=== PATIENT | female | born 1950 | race Caucasian/White ===

== ENCOUNTER 2019-11-15 12:20 | Outpatient (CLI) | payer MEDICARE, OTHER, SELFPAY ==
--- NOTE | 2019-11-15 12:37 | XRR_ITS ---
PROCEDURE INFORMATION: Exam: XR Right Wrist Exam date and time: 11/15/2019 12:37 PM Age: 69 years old Clinical indication: Pain and injury or trauma; Fall; Blunt trauma (contusions or hematomas); Wrist; Right; Injury date: August 2019; Prior surgery; Surgery type: Carpal tunnel; Additional info: Wrist pain right TECHNIQUE: Imaging protocol: XR Right wrist. Views: 3 or more views. COMPARISON: No relevant prior studies available. FINDINGS: Bones/joints: Normal. Soft tissues: Normal. XR/XR wrist RT min 3V* [id number] IMPRESSION: No acute findings.
== END 2019-11-15 12:21 | disposition home or self-care (01) ==
LOC: RAD 12:26
PROVIDERS: PCP Family Medicine; Visit Provider Family Medicine
DX: M25.531 Pain in right wrist (principal)
CPT/HCPCS: 73110

== ENCOUNTER → 2019-12-26 08:45 | Outpatient (BNVA) | payer MEDICARE, OTHER, SELFPAY | PROVIDERS: PCP Family Medicine; Referring Provider Family Medicine; Visit Provider Specialist | DX: S69.91XA Unspecified injury of right wrist, hand and finger(s), initial encounter (principal) | CPT/HCPCS: 73110 ==

== ENCOUNTER 2019-12-26 13:46 | Outpatient (CLI) | payer MEDICARE, OTHER, SELFPAY | END 2019-12-26 13:47 | disposition home or self-care (01) | LOC: SPT 13:47 | PROVIDERS: PCP Family Medicine; Visit Provider Specialist | DX: Z46.89 Encounter for fitting and adjustment of other specified devices (principal); S52.511D Displaced fracture of right radial styloid process, subsequent encounter for closed fracture with routine healing; S62.014D Nondisplaced fracture of distal pole of navicular [scaphoid] bone of right wrist, subsequent encounter for fracture with routine healing; X58.XXXD Exposure to other specified factors, subsequent encounter | CPT/HCPCS: 97760; L3982 ==

== ENCOUNTER → 2020-01-25 11:28 | Outpatient (BNVA) | payer MEDICARE, OTHER, SELFPAY | PROVIDERS: PCP Family Medicine; Visit Provider Specialist | DX: S62.024A Nondisplaced fracture of middle third of navicular [scaphoid] bone of right wrist, initial encounter for closed fracture (principal); S52.514A Nondisplaced fracture of right radial styloid process, initial encounter for closed fracture | CPT/HCPCS: 73110 ==

== ENCOUNTER 2020-01-31 08:16 | Outpatient (CLI) | payer MEDICARE, OTHER, SELFPAY ==
--- NOTE | 2020-01-31 08:40 | MR_ITS ---
WS: [id number] INDICATION: Nondisplaced fracture scaphoid TECHNIQUE: MR of the right wrist without gadolinium enhancement. Coronal T1, coronal PD, coronal STIR , coronal 3-D FSPGR Axial PD, axial T2, sagittal T1 FINDINGS: Prior radiographs reviewed. Normal radiocarpal joint. Normal bone marrow signal in the dist al radius and ulna. Normal bone marrow signal in the scaphoid and lunate. No evidence of scaphoid fra cture. No evidence of healing scaphoid fracture. Lateral cortex appears normal. Normal scapholunate i nterval. Mild degenerative arthritis of the carpal bones. This is worse at the STT. Proximal metacarpals are normal in appearance. Palpable marker overlying the area of pain along the r adial aspect of the wrist. Deep to the marker there is thickening and T2 signal abnormality involving the extensor pollicis brevis and abductor pollicis longus tendons. Recommend correlation with area o f pain. Extensor compartment tendons are normal in appearance. Normal carpal tunnel. Normal extensor retinaculum.TFCC is normal in appearance. MR/MR wrist RT wo con* [id number] IMPRESSION: 1. Scaphoid is normal in appearance. No scaphoid fractures or avascular necros is. Normal scapholunate interval. 2. Deep to the marker there is T2 signal abnormality with tendinopathy involvi ng the underlying extensor pollicis brevis and abductor pollicis longus tendons with associated thickening consistent with tendinopathy. Recommend correlation with area of pain. 3. No other significant findings.
== END 2020-01-31 08:17 | disposition home or self-care (01) ==
PROVIDERS: PCP Family Medicine; Visit Provider Specialist
DX: S62.024A Nondisplaced fracture of middle third of navicular [scaphoid] bone of right wrist, initial encounter for closed fracture (principal); X58.XXXA Exposure to other specified factors, initial encounter
CPT/HCPCS: 73221

== ENCOUNTER 2020-01-31 10:08 | Outpatient (CLI) | payer MEDICARE, OTHER, SELFPAY ==
--- NOTE | 2020-01-31 10:13 | MM_ITS ---
WS: [id number] Bilateral screening digital mammogram, 01/31/2020 Clinical Data: SCREENING Comparison: 11/19/2018, 10/30/2016, 09/27/2015, 07/09/2011, 05/06/2005. Findings: The breast parenchymal pattern shows fibroglandular tissue. No spiculated masses or clustered calcifi cations are seen. There are no secondary signs of carcinoma. There is a mole marker on the right [address] [place]. MM/[place] [id number] Impression: 1. Negative bilateral mammogram unchanged. 2. Recommend annual screening mammograms. BIRADS: 1-Negative FOLLOW UP: 1 Year Follow-up The CAD unloading checker was used.
== END 2020-01-31 10:09 | disposition home or self-care (01) ==
LOC: RADSHAW 10:11
PROVIDERS: PCP Family Medicine; Visit Provider Family Medicine
DX: Z12.31 Encounter for screening mammogram for malignant neoplasm of breast (principal)
CPT/HCPCS: 77067

== ENCOUNTER → 2020-02-02 14:22 | Outpatient (BNVA) | payer MEDICARE, OTHER, SELFPAY | PROVIDERS: PCP Family Medicine; Visit Provider Specialist | DX: Z01.812 Encounter for preprocedural laboratory examination (principal); Z20.828 Contact with and (suspected) exposure to other viral communicable diseases | CPT/HCPCS: 87635 ==

== ENCOUNTER 2020-02-07 05:55 | Day surgery (SDC) | payer MEDICARE, OTHER, SELFPAY ==
[2020-02-06 13:19] VITALS: BMI 27.0
[2020-02-07 06:13] VITALS: BP 131/66; PULSE 58; RESP 16; TEMP 36.3; O2SAT 98
[2020-02-07] MEDS: sodium chloride 0.9% 1,000 ML 30 ML IV (06:31)
[2020-02-07] MEDS: vancomycin 1,000 MG in sodium chloride 0.9% 250 ML 250 MG IV (06:31)
--- NOTE | 2020-02-07 06:35 | P.ANESASSM_ITS ---
Pre-Anesthetic Assessment Pre-Anesthetic Assessment: Height/Weight: Height 1.55 m Weight 64.864 kg Temp Pulse Resp BP Pulse Ox 97.3 F L 58 L 16 131/66 98 02/07/20 06:13 02/07/20 06:13 02/07/20 06:13 02/07/20 06:13 02/07/20 06:13 Preop Diagnosis: Good right de Quervain's tenosynovitis Proposed Procedure: Operation Date: 02/07/20 08:10 Proposed Procedures p Dequervain Release 66091 M65.4(Right) - Josseline Arellano MD Last intake: Intake Last Liquid Date 02/06/20 Last Liquid Time 21:00 Last Solid Date 02/06/20 Last Solid Time 20:00 Social: Social History: No alcohol and No tobacco Exam: Pre-Anes Outpt Exam: alert, oriented x 3, clear to auscultation bilaterally and regular rate & rhythm Airway: Submandibular: Other (small) Cervical ROM: WNL MP: 3 Dentition: False (upper and lower) History/ROS: No significant history except as noted Pulmonary: Pulmonary: MUÑOZ Comments: recent URI, currently on AB. feeling better CV/HEM: CV/HEM: HTN : : None reported Hepatic: Hepatic: None reported GI: GI: GERD (controlled) Metabolic: Metabolic: Thyroid Musc/skel: Musc/skel: OA/DJD Neuropsych: Neuropsych: None reported Anesthetic Plan: ASA status: 2 Anesthesia: Anesthesia Evaluation, General and MAC Risk of > 500 ml blood loss (7ml/kg in children): No Meds/Allergies Current Medications: Current Medications Generic Name Dose Route Start Last Admin Trade Name Freq PRN Reason Stop Dose Admin Vancomycin HCl 1,0 00 mg/ 250 mls @ 250 mls /hr 02/07/20 06:06 02/07/20 06:31 Sodium Chloride IV 02/07/20 07:05 250 mls/hr [employer] ONE Administration Protocol Sodium Chloride 1,000 mls @ 30 ml s/hr 02/07/20 06:15 02/07/20 06:31 Sodium Chloride 0.9% IV 02/08/20 06:14 30 mls/hr .Q24H JOE Administration PFSH Anesthesia PFSH: Medical History Hypertension Surgical History H/O esophageal hernia repair Social History Smoking and tobacco status: never smoked Alcohol intake: never Data Anesthesia Cardiac Studies: No Data to Display
--- NOTE | 2020-02-07 07:05 | P.HPUD_ITS ---
Surgery/Procedure H&P Update DATE OF PROCEDURE: February 07, 2020 DATE H&P PERFORMED: 02/01/20 H&P UPDATE INFORMATION: I have reviewed H&P completed within last 30 days, I have examined patient prior to procedure, No changes to prior documentation and H&P is in [facility] EMR on date indicated PREOP DIAGNOSIS: Right de Quervain's tenosynovitis PLANNED PROCEDURE: Operation Date: 02/07/20 08:10 Proposed Procedures p Victor Manuel Release [id number] M65.4(Right) - Josseline Arellano MD Related Problem List Diagnoses (1) De Quervain's tenosynovitis, right:
[2020-02-07 09:05] VITALS: BP 126/56; PULSE 67; RESP 18; TEMP 36.6; O2SAT 98
[2020-02-07 09:15] VITALS: BP 117/80; PULSE 60; RESP 18; O2SAT 100
--- NOTE | 2020-02-07 09:40 | P.OP_ITS ---
Operative Report Date of procedure: February 07, 2020 Pre-op Diagnosis: Right de Quervain's tenosynovitis Post-op diagnosis: same Post-op Findings: 1 extensor pollicis brevis and 2 abductor pollicis longus tendon slips Procedure Done: Right de Quervain's tenosynovitis release Specimens removed/disposition: None Pathology: none sent Surgeon: Josseline Arellano Chainstitch Zipper Setter: None Anesthesia: MAC (with Harini block, ASA 2) Estimated blood loss (mL): 0 Tourniquet time (min): 37 Tourniquet time: At 250 mmHg IV fluids (mL): 700 Urine output (mL): 0 Urine output: No Coon Complications: None Findings: Compression across the first dorsal compartment Condition: stable Disposition: same day Brief History: This 69-year-old woman presented with complaints of right wrist pain. Her pain was primarily centered over the radial styloid. This has been present for an extended period of time. She was unresponsive to splinting and conservative measures. MRI demonstrated findings consistent with de Quervain's tenosynovitis. After discussion, the patient wished to proceed. Procedure: The patient was brought to the operating theater. Anesthesia provided [general anesthesia per Harini block with MAC. The patient's right upper extremity was prepped and draped in usual fashion utilizing DuraPrep. It was draped free. [place] block was administered per anesthesia. Total tourniquet time was 37 minutes at 250 mmHg. The radial styloid was palpated and an incision was made vertically from the distal to the tip of the radial styloid proximally along the first dorsal compartment. Dissection continued through the skin and dermis but following that soft tissue blunt dissection was accomplished to prevent injury to the superficial radial nerve branches in the area. We were able to retract these branches and the first dorsal compartment was visualized. The fibrous tissue over the first dorsal compartment was noted to be quite thickened and erythematous. This was released longitudinally using a combination of scalpel and scissors. We then confirmed that each of the tendons at been released. There were 2 abductor pollicis longus tendons and one extensor pollicis brevis tendon. All of these were released at least a centimeter distal to the radial styloid and proximally as well. There was no further compression across the tendons. The tendons were pulled up out of the tunnel for evaluation. Following this, the wound was irrigated. Attention was then directed to closure. Closure was accomplished with 4-0 Monocryl interrupted in the subcutaneous tissues and subsequently a subcuticular suture was placed in a running fashion. We did inject the wound with half percent Marcaine plain for local anesthetic. This was followed by XLIF and an OpSite. We then placed a compression dressing using an OpSite and fluffed fluffs followed by soft roll, and an Roger wrap. Patient was returned to outpatient surgery in a satisfactory condition and will be discharged home to follow-up with me in the office. There were no specimens and no complications. Associated Problem List Diagnoses (1) De Quervain's tenosynovitis, right:
== END 2020-02-07 09:53 | disposition home or self-care (01) ==
PROVIDERS: PCP Family Medicine; Visit Provider Specialist
PROC: (CPT 25000; principal; 2020-02-07 08:10)
DX: M65.4 Radial styloid tenosynovitis [de Quervain] (principal); I10 Essential (primary) hypertension; K21.9 Gastro-esophageal reflux disease without esophagitis; M19.90 Unspecified osteoarthritis, unspecified site
CPT/HCPCS: 25000; 12345; J3370; J3490; J7030; J7050

== ENCOUNTER → 2020-02-20 09:24 | Outpatient (BNVA) | payer MEDICARE, OTHER, SELFPAY | PROVIDERS: PCP Family Medicine; Visit Provider Specialist | DX: M65.4 Radial styloid tenosynovitis [de Quervain] (principal) | CPT/HCPCS: 73110 ==

== ENCOUNTER → 2020-05-07 10:17 | Outpatient (BNVA) | payer MEDICARE, OTHER, SELFPAY | PROVIDERS: PCP Family Medicine; Visit Provider Thoracic Surgery (Cardiothoracic Vascular Surgery) | DX: Z01.812 Encounter for preprocedural laboratory examination (principal); Z20.828 Contact with and (suspected) exposure to other viral communicable diseases | CPT/HCPCS: 87635 ==

== ENCOUNTER 2020-10-16 12:09 | Inpatient (IN) | payer MEDICARE, OTHER, SELFPAY ==
[2020-10-16] VITALS (9 sets, daily range): BP systolic 116–160; BP diastolic 66–111; PULSE 69–149; RESP 14–24; TEMP 36.6–36.7; O2SAT 95–98; BMI 28.1; BMI 27.8
--- NOTE | 2020-10-16 12:26 | XR_ITS ---
WS: [id number] PORTABLE CHEST HISTORY: afib w RVR COMPARISON: 03/16/2017 Mild blunting of the RIGHT costophrenic angle is similar to prior studies. Lungs are clear and well a erated otherwise. No mass or nodule or edema. No pleural effusion or pneumothorax. Cardiac size: Normal. Mediastinum/Aorta: No mediastinal widening. No osseous abnormality seen. XR/XR chest 1V portable [id number] IMPRESSION: Stable chest. No pulmonary edema or pneumonia.
--- NOTE | 2020-10-16 12:26 | ECG_ITS ---
[facility] Test Date: 2020-10-16 Pat Name: Ave López Department: Room: Gender: Female Activity Director: : 1950 Requested By: Dennis Williamson Order Number: [id number] Reading MD: JAMA DILLON Measurements Intervals [place] Rate: 165 P: OR: QRS: 3 QRSD: 77 T: 269 QT: 243 QTc: 403 Interpretive Statements ATRIAL FIBRILLATION WITH RAPID VENTRICULAR RESPONSE POSSIBLE RIGHT VENTRICULAR CONDUCTION DELAY [RSR (QR) IN V1/V2] ST DEVIATION AND MODERATE T-WAVE ABNORMALITY, CONSIDER ANTEROLATERAL ISCHEMIA [-0.1+ mV T-WAVE IN V3-V6] ST DEVIATION AND MODERATE T-WAVE ABNORMALITY, CONSIDER INFERIOR ISCHEMIA [-0.1+ mV T-WAVE IN II/aVF] CRITICAL TEST RESULT Compared to ECG 03/16/2017 12:35:45 T-wave abnormality now present Possible ischemia now present Sinus rhythm no longer present Sinus arrhythmia no longer present Electronically Signed On 10-16-2020 21:02:07 CDT by JAMA DILLON [email or web address]/store/NU/[id number] diaz
--- NOTE | 2020-10-16 12:33 | ED_ITS ---
HPI - Chest Pain General: Chief Complaint: Chest Pain Stated Complaint: chest pain, lightheaded Time Seen by Provider: 10/16/20 12:26 History of Present Illness: HPI narrative: 70-year-old female presents emergency room with A. fib with RVR. She has had worsening chest discomfort and palpitations for the last several days radiating into her back with shortness of breath. Initial EKG showed A. fib with RVR. Patient initially was given Cardizem and had a good result. She has had dizziness and discomfort is worse with exertion. She denies any diaphoresis nausea or vomiting associated with this. She also has a history of hypothyroidism. MD complaint: chest pain and chest heaviness Pertinent past history: other (afiib) Onset (ago): hour(s) Timing of current episode: constant Prior episodes: Yes Onset: during rest Pain location: left chest Pain radiation: none Severity: mild Relieving factors: nothing Exacerbating factors: nothing Associated symptoms: Reports dyspnea, nausea, palpitations and vomiting; Deny abdominal pain, diaphoresis, fever(s), leg edema, sense of impending doom or syncope Treatment prior to arrival: none Review of Systems Const: Denies: fever(s) or diaphoresis ENMT: Denies: throat pain, ear or mastoid pain, nasal discharge or nasal congestion Card: Reports: palpitations; Denies: syncope Resp: Reports: dyspnea GI: Reports: nausea and vomiting; Denies: abdominal pain : Denies: flank pain, difficulty voiding, dysuria, urinary frequency or urinary urgency Skin/Breast: Denies: rash or pruritus [facility] ED PFSH: Medical History (Updated 10/24/20 @ 07:51 by Dennis Owen DO) Atrial fibrillation Atrial fibrillation with RVR Chest pain Chronic hypokalemia Hypertension Obstructive sleep apnea Recurrent chest pain SVT (supraventricular tachycardia) Surgical History (Updated 10/17/20 @ 18:53 by Grace Jackson MD) H/O esophageal hernia repair H/O: hysterectomy Social History Smoking and tobacco status: never smoked Alcohol intake: never Physical Exam Const: COMMON NORMALS: no acute distress GENERAL APPEARANCE: cooperative and comfortable ORIENTATION/CONSCIOUSNESS: Yes awake, Yes oriented to person, Yes oriented to place and Yes oriented to time HENMT: COMMON NORMALS: normocephalic, atraumatic and hearing grossly normal bilaterally HEAD & SCALP: normocephalic and atraumatic Resp: COMMON NORMALS: normal respiratory effort, No retractions, No use of accessory muscles and clear to auscultation bilaterally AUSCULTATION: clear to auscultation bilaterally Cardio: RATE: tachycardic RHYTHM: abnormal rhythm irregularly irregular GI: COMMON NORMALS: Soft to palpation and No hepatosplenomegaly present AUSCULTATION: Yes normoactive bowel sounds PALPATION: Yes Soft to palpation, No Tenderness to palpation present (GI), No Guarding due to palpation present (GI) and Yes No hepatosplenomegaly present Extremity: COMMON NORMALS: normal to inspection, capillary refill normal, no clubbing, cyanosis or edema, no calf tenderness and no pedal edema Neuro: SENSORIUM/ORIENTATION: Yes oriented to person, Yes oriented to place and Yes oriented to time Skin: COMMON NORMALS: no rashes or lesions noted GENERAL SKIN EXAM: no rashes or lesions noted Course Vital Signs: Vital signs: Vital Signs Temperature 97.6 F 10/22/20 14:16 Pulse Rate 62 10/22/20 14:16 Respiratory Rate 18 10/22/20 14:16 Blood Pressure 109/67 10/22/20 14:16 Pulse Oximetry 98 10/22/20 14:16 MDM - Chest Pain MDM Narrative: Medical decision making narrative: Improved with initiation of Cardizem and rate was well controlled we attempted to turn the Cardizem off since she is and has a known history of atrial fibrillation and hoped that if we had gotten her back under control she would be able to be controlled with her usual medications. We were unsuccessful in this and had to restart the Cardizem drip discussed with the hospitalist reviewed EKGs labs and imaging on the chart. We will go ahead and admit her for rate control and further evaluation. Lab Data: Labs: Lab Results 10/16/20 10/16/20 10/16/20 Range/Units 12:36 12:36 12:36 WBC 11.6 H (4.0-10.0) 10^3/ uL RBC 5.81 H (4.1-5.3) 10^6/u L Hgb 16.9 H (11.5-15.3) g/dL Hct 50.4 H (37.0-47.0) % MCV 86.7 (81-99) fl MCH 29.1 (28.0-34.0) pg MCHC 33.5 (30.0-36.0) g/dL RDW 13.3 (12.1-15.1) % Plt Count 330 (130-400) 10^3/c mm MPV 10.1 (7.4-10.4) fL Neut % (Auto) 77.6 % Lymph % (Auto) 16.8 % [place] % (Auto) 4.6 % Eos % (Auto) 0.2 % Baso % (Auto) 0.5 % Neut # (Auto) 9.00 H (1.8-7.7) 10^3/u L Lymph # (Auto) 1.9 (0.8-4.8) 10^3/u L [place] # (Auto) 0.5 (0.2-0.9) 10^3/u L Eos # (Auto) 0.0 (0.0-0.8) 10^3/u L Baso # (Auto) 0.1 (0.0-0.1) 10^3/u L Nucleated RBC % (a uto) 0 % Nucleated RBCs # 0.0 /100WBC Sodium Cancelled Potassium Cancelled Chloride Cancelled Carbon Dioxide Cancelled Anion Gap Cancelled BUN Cancelled Creatinine Cancelled GFR Calculation Cancelled Glucose Cancelled Calculated Osmolal ity Cancelled Calcium Cancelled Total Bilirubin Cancelled AST Cancelled ALT Cancelled Alkaline Phosphata se Cancelled Troponin T Baselin e Cancelled Total Protein Cancelled Albumin Cancelled Globulin Cancelled 10/16/20 10/16/20 Range/Units 13:20 13:20 WBC (4.0-10.0) 10^3/ uL RBC (4.1-5.3) 10^6/u L Hgb (11.5-15.3) g/dL Hct (37.0-47.0) % MCV (81-99) fl MCH (28.0-34.0) pg MCHC (30.0-36.0) g/dL RDW (12.1-15.1) % Plt Count (130-400) 10^3/c mm MPV (7.4-10.4) fL Neut % (Auto) % Lymph % (Auto) % [place] % (Auto) % Eos % (Auto) % Baso % (Auto) % Neut # (Auto) (1.8-7.7) 10^3/u L Lymph # (Auto) (0.8-4.8) 10^3/u L [place] # (Auto) (0.2-0.9) 10^3/u L Eos # (Auto) (0.0-0.8) 10^3/u L Baso # (Auto) (0.0-0.1) 10^3/u L Nucleated RBC % (a uto) % Nucleated RBCs # /100WBC Sodium 144 Potassium 2.6 L* Chloride 109 H Carbon Dioxide 19 L Anion Gap 18.6 BUN 24 H Creatinine 0.8 GFR Calculation 71.1 L Glucose 116 H Calculated Osmolal ity 303 H Calcium 9.0 Total Bilirubin 1.1 AST 12 ALT 8 Alkaline Phosphata se 95 Troponin T Baselin e 43 H Total Protein 6.5 L Albumin 4.0 Globulin 2.5 Discharge Plan Discharge Patient Disposition: Admitted As Inpatient Admit Provider: Davis Street Clinical Impression: Atrial fibrillation, Atypical chest pain Condition: Stable Coding Level of Care Code ED Director Corporate Security for Chg Fwd Exam Detailed
[2020-10-16 12:40] LABS: Basophils # 0.1 10^3/uL (0.0-0.1); Basophils % 0.5 %; Eosinophils % 0.2 %; Hematocrit 50.4 % (37.0-47.0); Hemoglobin 16.9 g/dL (11.5-15.3); Lymphocytes # 1.9 10^3/uL (0.8-4.8); Lymphocytes % 16.8 %; Mean Corpuscular HGB Conc 33.5 g/dL (30.0-36.0); Mean Corpuscular Hemoglobin 29.1 pg (28.0-34.0); Mean Corpuscular Volume 86.7 fl (81-99); Mean Platelet Volume 10.1 fL (7.4-10.4); Monocytes # 0.5 10^3/uL (0.2-0.9); Monocytes % 4.6 %; Neutrophils % 77.6 %; Nucleated Red Blood Cells % 0 %; Platelet Count 330 10^3/cmm (130-400); Red Blood Count 5.81 10^6/uL (4.1-5.3); Red Cell Distribution Width 13.3 % (12.1-15.1); White Blood Count 11.6 10^3/uL (4.0-10.0)
[2020-10-16 13:52] LABS: Alanine Aminotransferase 8 U/L (0-33); Alkaline Phosphatase 95 IU/L (35-105); Anion Gap 18.6 (5-19); Aspartate Amino Transferase 12 U/L (0-32); Blood Urea Nitrogen 24 mg/dL (8-23); Carbon Dioxide 19 mmol/L (22-29); Chloride 109 mmol/L (98-107); Globulin 2.5 g/dL (1.3-4.6); Glomerular Filtration Rate 71.1 mL/min (90-130); Glucose 116 mg/dL (65-115); Osmolality Calculated 303 mOsm/kg (285-295); Sodium 144 mmol/L (136-145); Total Bilirubin 1.1 mg/dL (0.15-1.2); Total Protein 6.5 g/dL (6.6-8.7)
[2020-10-16 13:54] LABS: Troponin(5th) Baseline 43 ng/L (0-10)
[2020-10-16 14:01] LABS: Potassium 2.6 mmol/L (3.5-5.1)
[2020-10-16] MEDS: potassium chloride oral liq 20 mEq/15 mL UDC 60 MEQ PO (14:09)
--- NOTE | 2020-10-16 14:26 | ECG_ITS ---
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1950 Requested By: Dennis Williamson Order Number: [id number] Reading MD: JAMA DILLON Measurements Intervals [place] Rate: 77 P: [place]: QRS: 8 QRSD: 94 T: -86 QT: 370 QTc: 420 Interpretive Statements ATRIAL FIBRILLATION INCOMPLETE RIGHT BUNDLE BRANCH BLOCK [90+ ms QRS DURATION, TERMINAL R IN V1/V2, 40+ ms S IN I/aVL/V4/V5/V6] SEPTAL MYOCARDIAL INFARCTION , PROBABLY OLD [40+ ms Q WAVE IN V1/V2] MODERATE T-WAVE ABNORMALITY, CONSIDER ANTEROLATERAL ISCHEMIA [-0.1+ mV T-WAVE IN V3-V6] MODERATE T-WAVE ABNORMALITY, CONSIDER INFERIOR ISCHEMIA [-0.1+ mV T-WAVE IN II/aVF] Compared to ECG 10/16/2020 12:26:21 Incomplete right bundle-branch block now present Myocardial infarct finding now present T-wave abnormality still present Possible ischemia still present Electronically Signed On 10-16-2020 21:12:41 CDT by JAMA DILLON [email or web address].[id number]
[2020-10-16] MEDS: metoprolol tartrate 1 mg/1 mL SDV 5 mL 5 MG IVP (15:51)
[2020-10-16 17:29] LABS: Troponin 5 2HR 45.44 ng/L (0-10); Troponin 5 2HR Delta 2.44 ABS# (0-10)
[2020-10-16 17:35] LABS: Potassium 3.7 mmol/L (3.5-5.1)
--- NOTE | 2020-10-16 17:38 | PC.NURSE ---
Admit Note Patient admitted to [facility] room 101 from ER via [place]. Covering service notified. Patient presents with AFIB on cardizem Gtt. Orders reviewed & will continue to monitor. Patient and/or education courses sales representative oriented to environment, equipment, and informed of the following as found in the admission booklet: patient rights & responsibilities, visitor policy, hand and respiratory hygiene practice. Other education includes: Telemetry call light response time. Patient and/or education courses sales representative verbalized understanding.
--- NOTE | 2020-10-16 18:03 | PM.HP ---
Providers/Chief Complaint Admitting Physician: Davis Street MD Primary Care Provider: Dagoberto Wright MD Chief Complaint: chest pain, lightheaded History of Present Illness Ave López is a 70 year old female with past medical history of hypothyroidism, recently diagnosed A. fib , hypertension, chronic hypokalemia, came in with chief complaint of worsening palpitation and chest pain started since Thursday.During these episodes of palpitation she feels central chest pain stabbing in nature radiating to the back, is accompanied with shortness of breath and nausea, and dizziness each episode last for couple of minutes, she has experienced multiple episodes since Thursday. Upon arrival in the ER she was worked up for above-mentioned complaint: Imaging studies: X-ray chest:Normal EKG: A. fib with RVR Pertinent labs: WBC:11.6 T , H&H:16.9/50.4, platelet count:330 , serum sodium:144, serum potassium:2.6, BUN serum creatinine: 24/0.8. Troponin T: Baseline 43, 2-hour: 45, 2-hour delta:2.44 Review of Systems Const: Denies: fever(s), chills, body aches, change in appetite or diaphoresis Card: Denies: edema or swelling of feet/ankles Resp: Denies: productive cough, wheezing or pain on inspiration GI: Denies: abdominal pain, vomiting, diarrhea or constipation : Denies: flank pain Musc: Denies: back pain, extremity pain or extremity swelling Neuro: Denies: headache(s), difficulty walking or confusion Medications/Allergies Home Medications Medication Instructions Recorded Confirmed Last Taken Type THUMB SPICA FAST FORM #1 ea NS 12/26/19 10/16/20 Unknown Rx brimonidine 0.33 % topical gel 1 applic TOPICAL DAILY 12/26/19 10/16/20 10/15/20 History levothyroxine 25 mcg tablet 25 mcg PO DAILY 12/26/19 10/16/20 10/15/20 History timolol 0.5 % eye drops 1 drp OPHTHALMIC (EYE) DAILY 12/26/19 10/16/20 10/15/20 History ferrous sulfate 65 mg PO DAILY 02/06/20 10/16/20 02/06/20 History latanoprost 1 drp OPHTHALMIC (EYE) DAILY 02/06/20 10/16/2021 History apixaban 5 mg tablet 5 mg PO BID 10/11/20 10/16/20 10/15/20 History metoprolol tartrate 25 mg tablet 25 mg PO BID 10/11/20 10/16/20 10/15/20 History potassium chloride 10 mEq 10 meq PO DAILY 10/11/20 10/16/20 Unknown History capsule,extended release sucralfate 1 gram tablet 1 g PO BID 10/11/20 10/16/20 10/15/20 History pantoprazole 40 mg PO BID 10/16/20 10/16/20 Unknown History Allergies Allergy/AdvReac Type Severity Reaction Status Date / Time Penicillins Allergy swelling Verified 10/11/20 14:33 sulfamethoxazole Allergy itch Verified 10/11/20 14:33 [From Bactrim] trimethoprim [From Bactrim] Allergy itch Verified 10/11/20 14:33 PFSH Acute PFSH: Medical History Atrial fibrillation Hypertension Obstructive sleep apnea SVT (supraventricular tachycardia) Surgical History H/O esophageal hernia repair Social History Smoking and tobacco status: never smoked Alcohol intake: never Vitals/I&O/Wt Last Vital Signs Temp 98 F 10/16/20 12:13 Pulse 75 10/16/20 17:38 Resp 22 H 10/16/20 17:28 BP 147/85 10/16/20 17:28 Pulse Ox 96 10/16/20 17:04 10/16/20 10/16/20 10/16/20 06:59 14:59 22:59 Intake Total 5.333 / 5.333 0 / 5.333 Balance 5.333 / 5.333 0 / 5.333 Weight last 48 hrs Weight 66.678 kg Weight 67.585 kg Physical Exam Const: COMMON NORMALS: patient oriented x3 HENMT: COMMON NORMALS: normocephalic and atraumatic HEAD & SCALP: normocephalic and atraumatic Resp: COMMON NORMALS: clear to auscultation bilaterally EFFORT & INSPECTION: Yes symmetric chest movement AUSCULTATION: clear to auscultation bilaterally Cardio: COMMON NORMALS: Peripheral pulses 2+ throughout HEART SOUNDS: S1 normal heart sound present and S2 normal heart sound present PERIPHERAL PULSES: Peripheral pulses 2+ throughout OTHER: Irregularly irregular, S1-S2 variable intensity. GI: COMMON NORMALS: Normal to inspection, nondistended, normoactive bowel sounds present, Soft to palpation, non-tender, No hepatosplenomegaly present and no masses AUSCULTATION: Yes normoactive bowel sounds PALPATION: Yes Soft to palpation and Yes No hepatosplenomegaly present RECTAL EXAM: deferred Extremity: COMMON NORMALS: no clubbing, cyanosis or edema and no pedal edema Neuro: COMMON NORMALS: patient oriented x3 Data : 10/16/20 12:36 10/16/20 16:50 A&P Assessment and plan (1) Atrial fibrillation with RVR: A. fib with RVR: 2D echo: TSH: Continue Cardizem drip: Metoprolol tartrate 50 mg every 12 hours daily Status: Acute (2) Chest pain: Possible stress test: Sublingual nitro as needed Status: Acute (3) Hypertension: Status: Acute (4) Obstructive sleep apnea: Status: Acute Attestations Medical Necessity Statement*: Patient needs to be in hospital for management of A. 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
[2020-10-16] MEDS: lidocaine 1% 5 ML in potassium chloride premix 100 ML 50 ML IV (18:12)
[2020-10-16] MEDS: apixaban 5 mg Tablet PO (18:13)
[2020-10-16] MEDS: pantoprazole DR 40 mg Tablet PO (18:13)
[2020-10-16] MEDS: sucralfate 1 gm Tablet PO (18:13)
[2020-10-16] MEDS: metoprolol tartrate 25 mg Tablet 50 MG PO (18:23)
--- NOTE | 2020-10-16 18:26 | ECG_ITS ---
[facility] Test Date: 2020-10-16 Pat Name: Ave López Department: Room: 101 Gender: Female Nephrology Nurse: : 1950 Requested By: Dennis Williamson Order Number: [id number] Benjie MD: Aidan Ledesma M.D. Measurements Intervals [place] Rate: 64 P: AL: QRS: 11 QRSD: 81 T: -80 QT: 390 QTc: 403 Interpretive Statements ATRIAL FIBRILLATION POSSIBLE RIGHT VENTRICULAR CONDUCTION DELAY [RSR (QR) IN V1/V2] ST DEVIATION AND MODERATE T-WAVE ABNORMALITY, CONSIDER ANTEROLATERAL ISCHEMIA [-0.1+ mV T-WAVE IN V3-V6] ST DEVIATION AND MODERATE T-WAVE ABNORMALITY, CONSIDER INFERIOR ISCHEMIA [-0.1+ mV T-WAVE IN II/aVF] Compared to ECG 10/16/2020 14:15:53 Incomplete right bundle-branch block no longer present Myocardial infarct finding no longer present T-wave abnormality still present Possible ischemia still present Electronically Signed On 10-17-2020 19:40:43 CDT by Aidan Ledesma M.D. [id number]
[2020-10-16 21:12] LABS: Troponin 5 6HR 54.04 ng/L (0-10); Troponin 5 6HR Delta 11.04 ng/L (0-12)
[2020-10-17] VITALS (11 sets, daily range): BP systolic 99–136; BP diastolic 62–99; PULSE 60–109; RESP 12–32; TEMP 36.4–36.8; O2SAT 95–98
[2020-10-17 04:47] LABS: Basophils # 0.1 10^3/uL (0.0-0.1); Basophils % 0.8 %; Eosinophils # 0.1 10^3/uL (0.0-0.8); Eosinophils % 1.6 %; Hematocrit 45.3 % (37.0-47.0); Lymphocytes # 2.9 10^3/uL (0.8-4.8); Lymphocytes % 34.6 %; Mean Corpuscular HGB Conc 33.1 g/dL (30.0-36.0); Mean Corpuscular Hemoglobin 28.8 pg (28.0-34.0); Mean Corpuscular Volume 86.9 fl (81-99); Mean Platelet Volume 10.2 fL (7.4-10.4); Monocytes # 0.6 10^3/uL (0.2-0.9); Monocytes % 7.4 %; Neutrophils # 4.64 10^3/uL (1.8-7.7); Neutrophils % 55.5 %; Nucleated Red Blood Cells % 0 %; Platelet Count 245 10^3/cmm (130-400); Red Blood Count 5.21 10^6/uL (4.1-5.3); Red Cell Distribution Width 13.2 % (12.1-15.1); White Blood Count 8.4 10^3/uL (4.0-10.0)
[2020-10-17 05:19] LABS: Alanine Aminotransferase 9 U/L (0-33); Albumin Level 3.8 g/dL (3.5-5.2); Alkaline Phosphatase 90 IU/L (35-105); Anion Gap 13.4 (5-19); Aspartate Amino Transferase 12 U/L (0-32); Blood Urea Nitrogen 19 mg/dL (8-23); Calcium 8.6 mg/dL (8.5-10.5); Carbon Dioxide 21 mmol/L (22-29); Chloride 113 mmol/L (98-107); Creatinine Clr Calc Pharmacy 57.9938; Globulin 2.2 g/dL (1.3-4.6); Glomerular Filtration Rate 99.1 mL/min (90-130); Glucose 97 mg/dL (65-115); Magnesium 1.9 mg/dL (1.7-2.3); NT Pro B Type Natriuretic Pept 1416 pg/mL (0-125); Osmolality Calculated 300 mOsm/kg (285-295); Potassium 3.4 mmol/L (3.5-5.1); Sodium 144 mmol/L (136-145); Thyroid Stimulating Hormone 2.89 uIU/mL (0.27-4.20)
--- NOTE | 2020-10-17 07:31 | PC.NURSE ---
Shift Note Frequent safety and comfort rounds continue. Orders and/or nursing care completed as indicated. Patient monitored for response to intervention and treatment(s). Education provided includes plan of care. Patient and/or off premise service representative verbalized understanding. Will continue to monitor.
--- NOTE | 2020-10-17 08:08 | P.PN_ITS ---
Subjective Subjective: Interval history: Patient was seen and examined this morning, Cardizem drip was stopped last night, as the heart rate was better controlled, but in the morning, she became severely symptomatic, with another burst of A. fib with RVR, causing her significant dizziness and shortness of breath.Cardizem push 10 mg IV one-time dose was given, Cardizem drip was restarted. Medications: Reviewed: Yes Vitals/I&O/Wt Last Vital Signs Temp 98.1 F 10/17/20 04:00 Pulse 104 H 10/17/20 07:42 Resp 17 10/17/20 07:42 BP 126/98 10/17/20 07:42 Pulse Ox 98 10/17/20 07:42 10/16/20 10/17/20 10/17/20 22:59 06:59 14:59 Intake Total 138.667 / 144.000 Balance 138.667 / 144.000 Weight last 48 hrs Weight 66.678 kg Weight 67.585 kg Physical Exam Const: COMMON NORMALS: patient oriented x3 HENMT: COMMON NORMALS: normocephalic and atraumatic HEAD & SCALP: normocephalic and atraumatic Resp: COMMON NORMALS: clear to auscultation bilaterally EFFORT & INSPECTION: Yes symmetric chest movement AUSCULTATION: clear to auscultation bilaterally Cardio: COMMON NORMALS: Peripheral pulses 2+ throughout PERIPHERAL PULSES: Peripheral pulses 2+ throughout OTHER: Irregularly irregular, S1-S2 variable intensity. GI: COMMON NORMALS: Normal to inspection, nondistended, normoactive bowel sounds present, Soft to palpation, non-tender, No hepatosplenomegaly present and no masses AUSCULTATION: Yes normoactive bowel sounds PALPATION: Yes Soft to palpation and Yes No hepatosplenomegaly present RECTAL EXAM: deferred Extremity: COMMON NORMALS: no clubbing, cyanosis or edema and no pedal edema Neuro: COMMON NORMALS: patient oriented x3 Data : 10/17/20 04:15 10/17/20 04:15 A&P Assessment and plan (1) Atrial fibrillation with RVR: A. fib with RVR: 2D echo: TSH:2.89 Continue Cardizem drip: Initially on metoprolol tartrate 50 mg every 12 hours daily. It was a stop today. She has been started on sotalol 80 MG PO twice daily from today evening, followed by 2-hour EKG after each dose. As she has symptomatic paroxysmal A. fib, will attempt to convert her to normal sinus rhythm. Status: Acute (2) Chest pain: Likely secondary to palpitation, cannot conclusively rule out underlying coronary artery disease. Troponin baseline:43, 2-hour troponin:45, 2-hour delta:2.44, troponin 6 hours: 54, 6-hour delta:11 Possible stress test: Sublingual nitro as needed Status: Acute (3) Hypertension: Blood pressure is currently well controlled. Spironolactone 12.5 mg p.o. daily Status: Acute (4) Chronic hypokalemia: Monitor and replace potassium. Status: Acute (5) Obstructive sleep apnea: Status: Acute Attestations Medical Necessity Statement*: Patient needs to be in hospital for management of symptomatic A. fib with RVR. Coding Level of Care Code Acute Optical Manufacturing Technician for Tino Hernández Diagnoses Atrial fibrillation with RVR I48.91 Chest pain R07.9 Hypertension I10 Chronic hypokalemia E87.6 Obstructive sleep apnea G47.33
[2020-10-17] MEDS: levothyroxine 25 mcg Tablet PO (08:25)
[2020-10-17] MEDS: pantoprazole DR 40 mg Tablet PO ×2 (08:25→17:30)
[2020-10-17] MEDS: ferrous sulfate EC 325 mg Tablet 65 MG PO (08:25)
[2020-10-17] MEDS: apixaban 5 mg Tablet PO ×2 (08:25→17:30)
[2020-10-17] MEDS: sucralfate 1 gm Tablet PO ×2 (08:25→17:30)
[2020-10-17] MEDS: metoprolol tartrate 25 mg Tablet 50 MG PO (08:27)
[2020-10-17] MEDS: potassium chloride ER 20 mEq Tablet 40 MEQ PO (08:27)
[2020-10-17] MEDS: lidocaine 1% 5 ML in potassium chloride premix 100 ML 25 ML IV (08:28)
--- NOTE | 2020-10-17 08:34 | PC.CHAP ---
Pastoral Care Encounter/Spiritual Assessment Type of Contact [] Declined meat and seafood manager visit [] Patient/Family/Request visit [] Outpatient visit [] Follow-up visit [] Physician referral [] Code/Alert [x] Routine visit [] Staff referral [] Actively dying [] Patient sleeping [] Family support [] [] Out of room [] Palliative care [] [] Receiving care in room [] Pre-surgical visit [] Trauma [] Long length of stay [] ICU visit [] Other: Relational/Emotional Strength [] Patient feels connected with others/family/visitors/staff [] Distress [] Loneliness/isolation [] Abandonment Spirituality of Patient [] Person of Rosa M [] Attends Sabianist of their Rosa M [] Believes in Prayer [] Reads Bible or Mandaen materials [] There are Spiritual issues to be addressed Qa Specialist Interventions [x] Prayer [] Active listening [] Non-anxious presence [] Spiritual/emotional support [] Crisis/trauma care [] Spiritual counseling [] Bereavement support [] Provided bereavement packet [] Provided Bible/devotional materials [] Provided toy/stuffed animal, coloring book to patient or family member [] Provided Communion [] Anointing/[place] [] Salvation [x] Completed spiritual assessment [] Other: Impact on Illness or Injury [] Angry [] Fearful [] Anxious [] Often cries [] Exhaustion [] Unable to work [] Unable to attend mosque [] Unable to walk/stand [] Unable to read [] Unable to drive [] Unable to eat/drink [] Unable to sleep [] Unable to be with family [] Patient intubated [] Other: Summary Time spent with patient
[2020-10-17] MEDS: sotalol 80 mg Tablet PO (17:30)
--- NOTE | 2020-10-17 17:39 | USCV_ITS ---
ReneAve Age: 70 Gender: F : 1950 Exam Date: 10/17/2020 06:19 Ordering Phys: Davis Street MD Technologist: Brisa Mckeon Exam Location: [facility] [place] Indication: AFIB BP: 136 / 99 HR: 102 Rhythm: Sinus Technical Quality: Technically difficult study MEASUREMENTS (Male / Female) Normal Values 2D ECHO LV Diastolic Diameter PLAX 2.9 cm 4.2 - 5.9 / 3.9 - 5.3 cm LV Systolic Diameter PLAX 2.1 cm LV Chamber Size 2.8 cm IVS Diastolic Thickness 0.9 cm 0.6 - 1.0 / 0.6 - 0.9 cm IVS Systolic Thickness 1.6 cm LVPW Diastolic Thickness 1.2 cm 0.6 - 1.0 / 0.6 - 0.9 cm LVPW Systolic Thickness 1.6 cm RV Chamber Size 2.1 cm LVOT Diameter 2.0 cm LV Ejection Fraction 2D Teich 55.5 % LV Ejection Fraction MOD 2C 71.4 % LV Ejection Fraction 2C AL 69.9 % LA Diameter 3.5 cm LA Width 3.0 cm LA Height 4.6 cm RA Width 3.0 cm RA Height 4.2 cm Aorta at Sinotubular Diameter 2.7 cm M-MODE LV Diastolic Diameter MM 3.7 cm 4.2 - 5.9 / 3.9 - 5.3 cm LV Systolic Diameter MM 2.0 cm LV Ejection Fraction MM Teich 78.0 % IVS Diastolic Thickness MM 0.7 cm 0.6 - 1.0 / 0.6 - 0.9 cm IVS Systolic Thickness MM 1.1 cm LVPW Diastolic Thickness MM 0.9 cm 0.6 - 1.0 / 0.6 - 0.9 cm LVPW Systolic Thickness MM 1.6 cm Aortic Annulus Diameter 2.3 cm LA Ao Ratio MM 1.7 MV E Point Septal Separation 0.6 cm DOPPLER AV Peak Velocity 155.8 cm/s LVOT Peak Velocity 67.0 cm/s AV Area Cont Eq vti 1.0 cm squared AV Area Cont Eq pk 1.4 cm squared MV Area PHT 3.0 cm squared MV E' Velocity 44.0 cm/s Mitral E to MV E' Ratio 8.2 Mitral E to LV E' Lateral Ratio 8.2 Mitral E to LV E' Septal Ratio 8.2 TR Peak Velocity 206.2 cm/s TR Peak Gradient 17.0 mmHg TR Mean Velocity 151.5 cm/s TR Mean Gradient 10.2 mmHg TR Velocity Time Integral 61.7 cm TV Peak E Velocity 61.0 cm/s Right Atrial Pressure 3.0 mmHg Pulmonary Artery Systolic Pressu 20.0 mmHg PV Peak Velocity 55.0 cm/s RV Acceleration Time 0.1 s RV Ejection Time 0.3 s RV AcT/ET 0.3 FINDINGS Left Ventricle Normal left ventricular cavity size. Low normal left ventricular systolic function. Left ventricular ejection fraction is estimated at 50-55 %. Although no diagnostic regional wall motion normality could be identified, this possibility cannot be completely excluded based on the study. Rhythm precludes evaluation of diastolic function. Right Ventricle Normal right ventricular size and systolic function. Right ventricular systolic pressure 20 mmHg. Right Atrium Normal right atrial size. Left Atrium Mildly increased left atrial size. Mitral Valve Mild mitral annular calcification. Mildly thickened mitral valve. No mitral valve stenosis. No mitral valve regurgitation. Aortic Valve Aortic valve not well visualized. No aortic valve stenosis. Trace-mild aortic valve regurgitation. Tricuspid Valve Structurally normal tricuspid valve. Mild tricuspid valve regurgitation. Pulmonic Valve Pulmonic valve not well visualized. Trace pulmonary valve regurgitation. Pericardium No pericardial effusion. Aorta Normal size aortic root and proximal ascending aorta. CONCLUSIONS 1. Normal left ventricular cavity size. Low normal left ventricular systolic function. Left ventricular ejection fraction is estimated at 50-55 %. Although no diagnostic regional wall motion normality could be identified, this possibility cannot be completely excluded based on the study. 2. Normal right ventricular size and systolic function. 3. Pulmonary artery pressure estimated at 20 mm Hg. 4. Mildly increased left atrial size. 5. Mild tricuspid valve regurgitation. 6. Trace to mild aortic valve regurgitation. 7. No prior similar studies to compare. Grace Jackson MD (Electronically Signed) Final Date: 17 October 2020 18:11 Amended: 17 October 2020 18:24 C
--- NOTE | 2020-10-17 18:52 | PM.CONSULT ---
Providers/Reason For Consult Consulting Physician/Specialty*: Dr. Jackson, cardiology Reason for Consult*: Atrial Fibrillation with rapid ventricle response Attending Physician: Davis Street MD Primary Care Provider: Dagoberto Wright MD History of Present Illness History of Present Illness Ave López is a 70 year old female with past medical history of hypertension and recently diagnosed paroxysmal atrial fibrillation on Eliquis and low dose metoprolol tartrate. She was supposed to have outpatient echo and stress test. However, for last 4-5 days she noticed her heart racing, dizziness and SOB. She also complains of intermittent left shoulder and upper chest pain. No other cardiac history. She lost her older brother recently d/t cancer and heart attack. No stents or bypass history in family. Patient was also found to have short runs of SVT on event monitor that she wore last month. In ER she was found to be in A fib with RVR. She has been on cardizem gtt and metoprolol and I have been asked to assist in further management. She also has h/o laparoscopic attempt for repair of her recurrent paraesophageal hernia in [id number]. She had extensive laparoscopic adhesiolysis and she had an inadvertent distal esophagotomy ended by a primary repair placement of a drain and omental patch, does the patient required PICC line and TPN. She eventually required esophageal reconstruction and has had intermittent esophageal stricture dilatation since then. Review of Systems General: Reports: 10 or more systems reviewed and unremarkable except in HPI and below Const: Denies: fever(s), chills, body aches, change in appetite or diaphoresis Card: Reports: chest pain, palpitations, lightheadedness and dyspnea on exertion; Denies: edema or swelling of feet/ankles Resp: Denies: productive cough, wheezing or pain on inspiration GI: Denies: abdominal pain, vomiting, diarrhea or constipation : Denies: flank pain Musc: Denies: back pain, extremity pain or extremity swelling Neuro: Denies: headache(s), difficulty walking or confusion Meds/Allergies Home Medications and Allergies Home Medications Medication Instructions Recorded Confirmed Last Taken Type THUMB SPICA FAST FORM #1 ea NS 12/26/19 10/16/20 Unknown Rx brimonidine 0.33 % topical gel 1 applic TOPICAL DAILY 12/26/19 10/16/20 10/15/20 History levothyroxine 25 mcg tablet 25 mcg PO DAILY 12/26/19 10/16/20 10/15/20 History timolol 0.5 % eye drops 1 drp OPHTHALMIC (EYE) DAILY 12/26/19 10/16/20 10/15/20 History ferrous sulfate 65 mg PO DAILY 02/06/20 10/16/20 02/06/20 History latanoprost 1 drp OPHTHALMIC (EYE) DAILY 02/06/20 10/16/20 10/15/20 History apixaban 5 mg tablet 5 mg PO BID 10/11/20 10/16/20 10/15/20 History metoprolol tartrate 25 mg tablet 25 mg PO BID 10/11/20 10/16/20 10/15/20 History potassium chloride 10 mEq 10 meq PO DAILY 10/11/20 10/16/20 Unknown History capsule,extended release sucralfate 1 gram tablet 1 g PO BID 10/11/20 10/16/20 10/15/20 History pantoprazole 40 mg PO BID 10/16/20 10/16/20 Unknown History Allergies Allergy/AdvReac Type Severity Reaction Status Date / Time Penicillins Allergy swelling Verified 10/11/20 14:33 sulfamethoxazole Allergy itch Verified 10/11/20 14:33 [From Bactrim] trimethoprim [From Bactrim] Allergy itch Verified 10/11/20 14:33 Current Medications Current Medications Generic Name Dose Route Start Last Admin Trade Name Freq PRN Reason Stop Dose Admin Apixaban 5 mg 10/16/20 18:00 10/17/20 17:30 Apixaban 5 Mg Tablet PO 5 mg BID JOE Administration Ferrous Sulfate 65 mg 10/17/20 09:00 10/17/20 08:25 Ferrous Sulfate Ec 325 Mg Tablet PO 65 mg DAILY JOE Administration Diltiazem HCl 125 mg/ Sodium 125 mls @ 0 mls/hr 10/16/20 12:30 10/16/20 20:56 Chloride IV 0 mg/hr .Q0M JOE 0 mls/hr Titration Protocol Per Protocol Latanoprost 1 drop 10/17/20 09:00 10/17/20 09:38 Latanoprost 0.005% Op Soln 2.5 Ml Btl EYE-BOTH Not Given DAILY JOE Levothyroxine Sodium 25 mcg 10/17/20 09:00 10/17/20 08:25 Levothyroxine 25 Mcg Tablet PO 25 mcg DAILY JOE Administration Pantoprazole Sodium 40 mg 10/16/20 18:00 10/17/20 17:[address] 40 Mg Tablet PO 40 mg BID JOE Administration Potassium Chloride 40 meq 10/17/20 09:00 10/17/20 08:27 Potassium Chloride Er 20 Meq Tablet PO 40 meq DAILY JOE Administration Sotalol HCl 80 mg 10/17/20 18:00 10/17/20 17:30 Sotalol 80 Mg Tablet PO 80 mg BID JOE Administration Sucralfate 1 gm 10/16/20 18:00 10/17/20 17:30 Sucralfate 1 Gm Tablet PO 1 gm BID JOE Administration Timolol Maleate 1 drop 10/17/20 09:00 10/17/20 09:38 Timolol 0.5% Op Soln 5 Ml Btl EYEAFF Not Given DAILY JOE PFSH Acute PFSH: Medical History (Updated 10/18/20 @ 07:19 by Grace Jackson MD) Atrial fibrillation Hypertension Obstructive sleep apnea SVT (supraventricular tachycardia) Surgical History (Updated 10/17/20 @ 18:53 by Grace Jackson MD) H/O esophageal hernia repair H/O: hysterectomy Social History Smoking and tobacco status: never smoked Alcohol intake: never Vitals/I&O/Wt Last Vital Signs Temp 98 F 10/17/20 16:00 Pulse 60 10/17/20 16:00 Resp 24 H 10/17/20 16:00 BP 110/87 10/17/20 16:00 Pulse Ox 97 10/17/20 16:00 10/17/20 10/17/20 10/17/20 06:59 14:59 22:59 Intake Total 240 / 240 400 / 640 Balance 240 / 240 400 / 640 Weight last 48 hrs Weight 147 lb Weight 149 lb Physical Exam Narrative: EXAM NARRATIVE: GENERAL: Averagely built and averagely nourished in no acute distress HEENT: Pupils equal round reactive to light. No pallor or icterus. NECK: No JVD No carotid bruit. CARDIOVASCULAR SYSTEM: S1-S2 irregulary irregular. No murmur or gallops. RESPIRATORY SYSTEM: Chest clear to auscultation. No wheezes rhonchi or rubs heard. No use of accessory muscles. ABDOMEN: Soft, nontender and nondistended. Normal bowel sounds present. abdominal scar noted EXTREMITIES: No cyanosis or clubbing. No edema. No signs of chronic venous insufficiency. TRANSVERSE ABDOMINAL MUSCLE NURSE: Patient is alert oriented ?3. No focal neurological deficits. SKIN: Normal turgor and temperature. PSYCH: Normal insight and judgment. Data Other Data: Attestation for Other Data: I personally reviewed and interpreted the following: Other data: TTE (10/17/20) CONCLUSIONS 1. Normal left ventricular cavity size. Low normal left ventricular systolic function. Left ventricular ejection fraction is estimated at 50-55 %. Although no diagnostic regional wall motion normality could be identified, this possibility cannot be completely excluded based on the study. 2. Normal right ventricular size and systolic function. 3. Pulmonary artery pressure estimated at 20 mm Hg. 4. Mildly increased left atrial size. 5. Mild tricuspid valve regurgitation. 6. Trace to mild aortic valve regurgitation. 7. No prior similar studies to compare A&P Assessment and plan (1) Atrial fibrillation with RVR: started on sotalol. -continue Eliquis. -Keep K>4 and Mg>2. -In case she needs KRISTIAN/CV, will probably need EGD pre KRISTIAN with her extensive history. -Low normal LV function on echo. Status: Acute (2) SVT (supraventricular tachycardia): Status: Acute (3) Hypertension: Status: Acute Qualifiers: Hypertension type: essential hypertension Qualified Code(s): I10 - Essential (primary) hypertension (4) Obstructive sleep apnea: Status: Acute Additional A&P Information NSTEMI type 2 in setting of A. fib with RVR Hypothyroidism Thank you for allowing me to participate in patient's care. Please feel free to call with questions or concerns. Consult Attestations Time Spent in Patient Care: Greater than 35 minutes (>than 50% of time spent in counselling and/or direct pt care on unit). Coding Level of Care Code Acute Collating Machine Operator for g Fwd Diagnoses Atrial fibrillation with RVR I48.91 SVT (supraventricular tachycardia) I47.1 Hypertension I10 Hypertension type: essential hypertension Obstructive sleep apnea G47.33
--- NOTE | 2020-10-17 20:00 | ECG_ITS ---
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 Measurements Intervals [place] Rate: 63 P: [place]: QRS: 22 QRSD: 73 T: -60 QT: 397 QTc: 408 Interpretive Statements ATRIAL FIBRILLATION SEPTAL MYOCARDIAL INFARCTION , PROBABLY OLD [40+ ms Q WAVE IN V1/V2] MODERATE T-WAVE ABNORMALITY, CONSIDER ANTEROLATERAL ISCHEMIA [-0.1+ mV T-WAVE IN V3-V6] MODERATE T-WAVE ABNORMALITY, CONSIDER INFERIOR ISCHEMIA [-0.1+ mV T-WAVE IN II/aVF] Compared to ECG 10/16/2020 21:34:32 Myocardial infarct finding now present T-wave abnormality still present Possible ischemia still present Electronically Signed On 10-17-2020 19:44:16 CDT by Aidan Ledesma M.D. [id number]
[2020-10-18] VITALS (8 sets, daily range): BP systolic 112–138; BP diastolic 65–87; PULSE 56–78; RESP 17–23; TEMP 36.6; O2SAT 96–97
[2020-10-18 05:53] LABS: Alanine Aminotransferase 20 U/L (0-33); Albumin Level 3.5 g/dL (3.5-5.2); Alkaline Phosphatase 82 IU/L (35-105); Blood Urea Nitrogen 18 mg/dL (8-23); Calcium 8.6 mg/dL (8.5-10.5); Carbon Dioxide 17 mmol/L (22-29); Chloride 112 mmol/L (98-107); Globulin 2.2 g/dL (1.3-4.6); Glucose 90 mg/dL (65-115); Osmolality Calculated 291 mOsm/kg (285-295); Sodium 140 mmol/L (136-145); Total Bilirubin 0.7 mg/dL (0.15-1.2); Total Protein 5.7 g/dL (6.6-8.7)
[2020-10-18 05:54] LABS: Anion Gap 14.8 (5-19); Aspartate Amino Transferase 22 U/L (0-32); Potassium 3.8 mmol/L (3.5-5.1)
--- NOTE | 2020-10-18 06:14 | PC.NURSE ---
Patient is in good condition, patient coverted into a SR from A Fib during the night
--- NOTE | 2020-10-18 08:00 | PC.NURSE ---
Pt sitting up in bed talking to staff. Pts resp even and non-labored no distress noted. Pt had no c/o pain or discomfort at the present time. No needs voiced. Call light in reach. Will cont to monitor.
--- NOTE | 2020-10-18 08:05 | P.PN_ITS ---
Subjective Subjective: Interval history: Patient was seen and examined this morning. She converted back to NSR, last night. Currently she is complaining of occasional dizziness, fatigue, and intermittent chest discomfort. Her other vitals and labs have been reviewed Medications: Reviewed: Yes Vitals/I&O/Wt Last Vital Signs Temp 98 F 10/18/20 03:28 Pulse 78 10/18/20 07:53 Resp 23 H 10/18/20 07:53 BP 115/80 10/18/20 07:53 Pulse Ox 97 10/18/20 07:51 10/17/20 10/18/20 10/18/20 22:59 06:59 14:59 Intake Total 400 / 640 100 / 740 Balance 400 / 640 100 / 740 Weight last 48 hrs Weight 68.492 kg Weight 66.678 kg Weight 67.585 kg Physical Exam Const: COMMON NORMALS: patient oriented x3 HENMT: COMMON NORMALS: normocephalic and atraumatic HEAD & SCALP: normocephalic and atraumatic Neck/C-Spine: COMMON NORMALS: no JVD Resp: COMMON NORMALS: clear to auscultation bilaterally EFFORT & INSPECTION: Yes symmetric chest movement AUSCULTATION: clear to auscultation bilaterally Cardio: COMMON NORMALS: no JVD, regular rate, regular rhythm, S1 normal heart sound present, S2 normal heart sound present and Peripheral pulses 2+ throughout RATE: regular rate RHYTHM: regular rhythm HEART SOUNDS: S1 normal heart sound present and S2 normal heart sound present PERIPHERAL PULSES: Peripheral pulses 2+ throughout GI: COMMON NORMALS: Normal to inspection, nondistended, normoactive bowel sounds present, Soft to palpation, non-tender, No hepatosplenomegaly present and no masses AUSCULTATION: Yes normoactive bowel sounds PALPATION: Yes Soft to palpation and Yes No hepatosplenomegaly present RECTAL EXAM: deferred Extremity: COMMON NORMALS: no clubbing, cyanosis or edema and no pedal edema Neuro: COMMON NORMALS: patient oriented x3 Data : 10/17/20 04:15 10/18/20 04:37 A&P Assessment and plan (1) Atrial fibrillation with RVR: A. fib with RVR: 2D echo:Normal left ventricular cavity size. Low normal left ventricular systolic function. Left ventricular ejection fraction is estimated at 50-55 %.Normal right ventricular size and systolic function. Pulmonary artery pressure estimated at 20 mm Hg. Mildly increased left atrial size. Mild tricuspid valve regurgitation. Trace to mild aortic valve regurgitation. TSH:2.89 Initially she was started on Cardizem drip: As well as metoprolol tartrate 50 mg every 12 hours daily. Switched to sotalol 80 MG PO twice daily ,given her h/o paroxysmal Afib. followed by 2-hour EKG after each dose to monitor for corrected QTc interval. Currently converted to normal sinus rhythm. Status: Acute (2) Chest pain: Likely secondary to palpitation, cannot conclusively rule out underlying coronary artery disease. Troponin baseline:43, 2-hour troponin:45, 2-hour delta:2.44, troponin 6 hours: 54, 6-hour delta:11 Stress test:Am Sublingual nitro as needed Status: Acute (3) Hypertension: Blood pressure is currently well controlled. Spironolactone 12.5 mg p.o. daily Status: Acute Qualifiers: Hypertension type: essential hypertension Qualified Code(s): I10 - Essential (primary) hypertension (4) Chronic hypokalemia: Monitor and replace potassium. Spironolactone 12.5 mg p.o. daily Status: Acute (5) Obstructive sleep apnea: Status: Acute Attestations Medical Necessity Statement*: Patient needs to be in hospital for chest pain evaluation. Awaiting stress test. Coding Level of Care Code Acute Farmworker Fryer Farm for Tino Hernández Diagnoses Atrial fibrillation with RVR I48.91 Chest pain R07.9 Hypertension I10 Hypertension type: essential hypertension Chronic hypokalemia E87.6 Obstructive sleep apnea G47.33
[2020-10-18] MEDS: sotalol 80 mg Tablet PO ×2 (09:23→21:23)
[2020-10-18] MEDS: spironolactone 25 mg Tablet 12.5 MG PO (09:23)
[2020-10-18] MEDS: sucralfate 1 gm Tablet PO ×2 (09:23→17:39)
[2020-10-18] MEDS: pantoprazole DR 40 mg Tablet PO ×2 (09:23→17:39)
[2020-10-18] MEDS: ferrous sulfate EC 325 mg Tablet 65 MG PO (09:24)
[2020-10-18] MEDS: apixaban 5 mg Tablet PO ×2 (09:25→17:39)
[2020-10-18] MEDS: levothyroxine 25 mcg Tablet PO (09:25)
[2020-10-18] MEDS: potassium chloride ER 20 mEq Tablet 40 MEQ PO (09:26)
--- NOTE | 2020-10-18 11:32 | PM.PN ---
Subjective Subjective: Interval history: Converted back to sinus rhythm last night. She feels better still has some chest discomfort and occasional dizziness but overall symptoms have improved. Medications: Reviewed: Yes Vitals/I&O/Wt Last Vital Signs Temp 98 F 10/18/20 03:28 Pulse 78 10/18/20 07:53 Resp 23 H 10/18/20 07:53 BP 115/80 10/18/20 07:53 Pulse Ox 97 10/18/20 07:51 10/17/20 10/18/20 10/18/20 22:59 06:59 14:59 Intake Total 400 / 640 100 / 740 Balance 400 / 640 100 / 740 Weight last 48 hrs Weight 151 lb Weight 147 lb Weight 149 lb Physical Exam Narrative: EXAM NARRATIVE: GENERAL: Averagely built and averagely nourished in no acute distress HEENT: Pupils equal round reactive to light. No pallor or icterus. NECK: No JVD No carotid bruit. CARDIOVASCULAR SYSTEM: S1-S2 regular. No murmur or gallops. RESPIRATORY SYSTEM: Chest clear to auscultation. No wheezes rhonchi or rubs heard. No use of accessory muscles. ABDOMEN: Soft, nontender and nondistended. Normal bowel sounds present. abdominal scars noted EXTREMITIES: No cyanosis or clubbing. No edema. No signs of chronic venous insufficiency. 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 No focal neurological deficits. SKIN: Normal turgor and temperature. PSYCH: Normal insight and judgment. Data : 10/17/20 04:15 10/18/20 04:37 Attestation for Other Data: I personally reviewed and interpreted the following: Other data: TTE (10/17/20) CONCLUSIONS 1. Normal left ventricular cavity size. Low normal left ventricular systolic function. Left ventricular ejection fraction is estimated at 50-55 %. Although no diagnostic regional wall motion normality could be identified, this possibility cannot be completely excluded based on the study. 2. Normal right ventricular size and systolic function. 3. Pulmonary artery pressure estimated at 20 mm Hg. 4. Mildly increased left atrial size. 5. Mild tricuspid valve regurgitation. 6. Trace to mild aortic valve regurgitation. 7. No prior similar studies to compare A&P Assessment and plan (1) Atrial fibrillation with RVR: Paroxysmal atrial fibrillation; converted to SR with sotalol. -continue on sotalol 80 mg BID and Eliquis. -continue monitoring with EKG and telemetry. -Keep K>4 and Mg>2. -Low normal LV function on echo. -Plan for stress test in morning. Status: Acute (2) SVT (supraventricular tachycardia): Status: Acute (3) Hypertension: Status: Acute Qualifiers: Hypertension type: essential hypertension Qualified Code(s): I10 - Essential (primary) hypertension (4) Obstructive sleep apnea: Status: Acute Additional A&P Information NSTEMI type 2 in setting of A. fib with RVR Hypothyroidism Thank you for allowing me to participate in patient's care. Please feel free to call with questions or concerns. Attestations Medical Necessity Statement*: needs hospital stay for A. fib with RVR, sotalol therapy and stress test Time Spent in Patient Care: 16 - 35 minutes (>than 50% of time spent in counselling and/or direct pt care on unit). Coding Level of Care Code Acute Vehicle Damage Appraiser for Tino Fwd Diagnoses Atrial fibrillation with RVR I48.91 SVT (supraventricular tachycardia) I47.1 Hypertension I10 Hypertension type: essential hypertension Obstructive sleep apnea G47.33
--- NOTE | 2020-10-18 11:36 | ECG_ITS ---
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 Measurements Intervals [place] Rate: 69 P: 66 DE: 162 QRS: 7 QRSD: 78 T: -42 QT: 406 QTc: 438 Interpretive Statements SINUS RHYTHM WITH OCCASIONAL SUPRAVENTRICULAR PREMATURE COMPLEXES POSSIBLE RIGHT VENTRICULAR CONDUCTION DELAY [RSR (QR) IN V1/V2] SEPTAL MYOCARDIAL INFARCTION , PROBABLY OLD [40+ ms Q WAVE IN V1/V2] MODERATE T-WAVE ABNORMALITY, CONSIDER ANTERIOR ISCHEMIA [-0.1+ mV T-WAVE IN V3/V4] Compared to ECG 10/17/2020 15:16:51 Atrial fibrillation no longer present Myocardial infarct finding still present T-wave abnormality still present Possible ischemia still present Electronically Signed On 10-19-2020 9:08:54 CDT by Grace Jackson M.D. [id number]
--- NOTE | 2020-10-18 23:36 | ECG_ITS ---
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1950 Requested By: Grace Jackson Order Number: [id number] Reading MD: JAMA DILLON Measurements Intervals [place] Rate: 55 P: 69 MD: 161 QRS: 4 QRSD: 72 T: -27 QT: 427 QTc: 412 Interpretive Statements SINUS BRADYCARDIA POSSIBLE RIGHT VENTRICULAR CONDUCTION DELAY [RSR (QR) IN V1/V2] ST DEVIATION AND MODERATE T-WAVE ABNORMALITY, CONSIDER ANTERIOR ISCHEMIA [-0.1+ mV T-WAVE IN V3/V4] Compared to ECG 10/18/2020 12:01:30 Sinus rhythm no longer present Myocardial infarct finding no longer present T-wave abnormality still present Possible ischemia still present Electronically Signed On 10-20-2020 20:19:20 CDT by JAMA DILLON [id number]
[2020-10-19] VITALS (10 sets, daily range): BP systolic 91–135; BP diastolic 71–81; PULSE 51–59; RESP 12–24; TEMP 37.1; O2SAT 96–97
[2020-10-19 05:01] LABS: Basophils # 0.1 10^3/uL (0.0-0.1); Basophils % 1.2 %; Eosinophils # 0.2 10^3/uL (0.0-0.8); Eosinophils % 3.2 %; Hematocrit 42.4 % (37.0-47.0); Hemoglobin 13.8 g/dL (11.5-15.3); Lymphocytes # 2.1 10^3/uL (0.8-4.8); Lymphocytes % 31.2 %; Mean Corpuscular HGB Conc 32.5 g/dL (30.0-36.0); Mean Corpuscular Hemoglobin 29.5 pg (28.0-34.0); Mean Corpuscular Volume 90.6 fl (81-99); Mean Platelet Volume 10.1 fL (7.4-10.4); Monocytes # 0.5 10^3/uL (0.2-0.9); Neutrophils # 3.91 10^3/uL (1.8-7.7); Neutrophils % 57.1 %; Nucleated Red Blood Cells % 0 %; Platelet Count 209 10^3/cmm (130-400); Red Blood Count 4.68 10^6/uL (4.1-5.3); Red Cell Distribution Width 13.2 % (12.1-15.1); White Blood Count 6.9 10^3/uL (4.0-10.0)
[2020-10-19 05:20] LABS: Alanine Aminotransferase 17 U/L (0-33); Albumin Level 3.3 g/dL (3.5-5.2); Alkaline Phosphatase 85 IU/L (35-105); Aspartate Amino Transferase 14 U/L (0-32); Blood Urea Nitrogen 11 mg/dL (8-23); Calcium 8.6 mg/dL (8.5-10.5); Carbon Dioxide 20 mmol/L (22-29); Chloride 111 mmol/L (98-107); Globulin 1.9 g/dL (1.3-4.6); Glucose 92 mg/dL (65-115); Magnesium 1.8 mg/dL (1.7-2.3); Osmolality Calculated 289 mOsm/kg (285-295); Sodium 140 mmol/L (136-145); Total Bilirubin 0.7 mg/dL (0.15-1.2); Total Protein 5.2 g/dL (6.6-8.7)
--- NOTE | 2020-10-19 06:30 | PC.NURSE ---
Shift Note Frequent safety and comfort rounds continue. Orders and/or nursing care completed as indicated. Patient monitored for response to intervention and treatment(s). Education provided includes Lexiscan stress test. Patient verbalized complete understanding. Patient had uneventful night. Heart rate is SB in the 50s. Did observed decreased as low as 48. Patient remained asymptomatic. Patient denies pain or other needs. No distress observed. Will continue to monitor.
--- NOTE | 2020-10-19 08:47 | PC.NURSE ---
stress test cancelled due to hiatal hernia. dr chow notified by AMVONET
--- NOTE | 2020-10-19 09:20 | PC.SOCIAL ---
IMM Update Discussed Medicare rights with patient. Verbalized understanding. Gave pt a copy and placed initialed, timed, dated copy in chart.
[2020-10-19] MEDS: potassium chloride ER 20 mEq Tablet 40 MEQ PO (09:30)
[2020-10-19] MEDS: spironolactone 25 mg Tablet 12.5 MG PO (09:31)
[2020-10-19] MEDS: sucralfate 1 gm Tablet PO ×2 (09:31→17:02)
[2020-10-19] MEDS: pantoprazole DR 40 mg Tablet PO ×2 (09:31→17:02)
[2020-10-19] MEDS: levothyroxine 25 mcg Tablet PO (09:31)
[2020-10-19] MEDS: apixaban 5 mg Tablet PO ×2 (09:31→17:02)
[2020-10-19] MEDS: sotalol 80 mg Tablet PO (09:36)
--- NOTE | 2020-10-19 10:00 | PM.PN ---
Subjective Subjective: Interval history: remains in SR/SB. continues to have CP on and off Medications: Reviewed: Yes Medication Review Details: Current Medications Acetaminophen (Acetaminophen 325 Mg Tablet) 650 mg PO Q6H PRN PRN Reason: Mild/Mod Pain Or Temp >/= 101 Acetaminophen (Acetaminophen 325 Mg Tablet) 650 mg PO Q6H PRN PRN Reason: Mild/Mod Pain Or Temp >/= 101 Aminophylline (Aminophylline 25 Mg/Ml Sdv 10 Ml) 25 mg IVP Q2M PRN PRN Reason: see dose instructions Stop: 10/20/20 07:00 Apixaban (Apixaban 5 Mg Tablet) 5 mg PO BID [facility] Last Admin: 10/19/20 09:31 Dose: 5 mg Documented by: Bisacodyl (Bisacodyl 5 Mg Tablet) 10 mg PO DAILY PRN; Protocol PRN Reason: Constipation (see protocol) Diltiazem HCl (Diltiazem 30 Mg Tablet) 30 mg PO Q6H PRN PRN Reason: tachycardia HR>120 bpm Ferrous Sulfate (Ferrous Sulfate Ec 325 Mg Tablet) 65 mg PO DAILY [facility] Last Admin: 10/18/20 09:24 Dose: 65 mg Documented by: Latanoprost (Latanoprost 0.005% Op Soln 2.5 Ml Btl) 1 drop EYE-BOTH DAILY [facility] Last Admin: 10/19/20 09:32 Dose: Not Given Documented by: Levothyroxine Sodium (Levothyroxine 25 Mcg Tablet) 25 mcg PO DAILY [facility] Last Admin: 10/19/20 09:31 Dose: 25 mcg Documented by: Nitroglycerin (Nitroglycerin 0.4 Mg Sublingual Tablet) 0.4 mg SUBLINGUAL Q5M PRN PRN Reason: CHEST PAIN Nitroglycerin (Nitroglycerin 0.4 Mg Sublingual Tablet) 0.4 mg SUBLINGUAL Q5M PRN PRN Reason: CHEST PAIN Stop: 10/20/20 07:00 Ondansetron HCl (Ondansetron 2 Mg/Ml Sdv 2 Ml) 4 mg IVP Q6H PRN PRN Reason: NAUSEA AND VOMITING Ondansetron HCl (Ondansetron 2 Mg/Ml Sdv 2 Ml) 4 mg IVP Q8H PRN PRN Reason: vomiting, or N/V if npo Ondansetron HCl (Ondansetron 2 Mg/Ml Sdv 2 Ml) 4 mg IVP Q2M PRN PRN Reason: NAUSEA Pantoprazole Sodium (Pantoprazole Dr 40 Mg Tablet) 40 mg PO BID [facility] Last Admin: 10/19/20 09:31 Dose: 40 mg Documented by: Potassium Chloride (Potassium Chloride Er 20 Meq Tablet) 40 meq PO DAILY [facility] Last Admin: 10/19/20 09:30 Dose: 40 meq Documented by: Regadenoson (Regadenoson 0.4 Mg/5 Ml Syringe) 0.4 mg IVP ONCE PRN PRN Reason: Lexiscan Stress Test Sotalol HCl (Sotalol 80 Mg Tablet) 80 mg PO BID@0900,2100 [facility] Last Admin: 10/19/20 09:36 Dose: 80 mg Documented by: Spironolactone (Spironolactone 25 Mg Tablet) 12.5 mg PO DAILY [facility] Last Admin: 10/19/20 09:31 Dose: 12.5 mg Documented by: Sucralfate (Sucralfate 1 Gm Tablet) 1 gm PO BID [facility] Last Admin: 10/19/20 09:31 Dose: 1 gm Documented by: Timolol Maleate (Timolol 0.5% Op Soln 5 Ml Btl) 1 drop EYEAFF DAILY [facility] Last Admin: 10/19/20 09:32 Dose: Not Given Documented by: Vitals/I&O/Wt Last Vital Signs Temp 98 F 10/18/20 03:28 Pulse 57 L 10/19/20 04:44 Resp 20 H 10/19/20 04:32 BP 116/75 10/19/20 04:32 Pulse Ox 96 10/19/20 04:32 10/18/20 10/19/20 10/19/20 22:59 06:59 14:59 Intake Total 480 / 480 Balance 480 / 480 Weight last 48 hrs Weight 151 lb Physical Exam Narrative: EXAM NARRATIVE: GENERAL: Averagely built and averagely nourished in no acute distress HEENT: Pupils equal round reactive to light. No pallor or icterus. NECK: No JVD No carotid bruit. CARDIOVASCULAR SYSTEM: S1-S2 regular. No murmur or gallops. RESPIRATORY SYSTEM: Chest clear to auscultation. No wheezes rhonchi or rubs heard. No use of accessory muscles. ABDOMEN: Soft, nontender and nondistended. Normal bowel sounds present. abdominal scars noted EXTREMITIES: No cyanosis or clubbing. No edema. 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 No focal neurological deficits. SKIN: Normal turgor and temperature. PSYCH: Normal insight and judgment. Data : 10/20/20 05:30 10/19/20 04:10 A&P Assessment and plan (1) Atrial fibrillation with RVR: Paroxysmal atrial fibrillation; converted to SR with sotalol. -continue on sotalol 80 mg BID and Eliquis. -continue monitoring with EKG and telemetry. -Keep K>4 and Mg>2. -Low normal LV function on echo. -.Unable to do stress test d/t sotalol and large hiatal therapy. May need cath if she continues to have CP. will tentatively make her NPO. Status: Acute (2) SVT (supraventricular tachycardia): Status: Acute (3) Hypertension: Status: Acute Qualifiers: Hypertension type: essential hypertension Qualified Code(s): I10 - Essential (primary) hypertension (4) Obstructive sleep apnea: Status: Acute Additional A&P Information NSTEMI type 2 in setting of A. fib with RVR Hypothyroidism Thank you for allowing me to participate in patient's care. Please feel free to call with questions or concerns. Attestations Medical Necessity Statement*: needs hospital stay for sotalol therapy and chest pain. Time Spent in Patient Care: 16 - 35 minutes Coding Level of Care Code Acute Restorative Art Embalmer for g Fwd Diagnoses Atrial fibrillation with RVR I48.91 SVT (supraventricular tachycardia) I47.1 Hypertension I10 Hypertension type: essential hypertension Obstructive sleep apnea G47.33
--- NOTE | 2020-10-19 10:44 | PM.PN ---
Subjective Subjective: Interval history: Patient was seen and examined this morning.Continue to be in NSR. Currently she is complaining of occasional dizziness, deny any chest pain. Medications: Reviewed: Yes Medication Review Details: Current Medications Acetaminophen (Acetaminophen 325 Mg Tablet) 650 mg PO Q6H PRN PRN Reason: Mild/Mod Pain Or Temp >/= 101 Acetaminophen (Acetaminophen 325 Mg Tablet) 650 mg PO Q6H PRN PRN Reason: Mild/Mod Pain Or Temp >/= 101 Aminophylline (Aminophylline 25 Mg/Ml Sdv 10 Ml) 25 mg IVP Q2M PRN PRN Reason: see dose instructions Stop: 10/20/20 07:00 Apixaban (Apixaban 5 Mg Tablet) 5 mg PO BID [facility] Last Admin: 10/19/20 09:31 Dose: 5 mg Documented by: Bisacodyl (Bisacodyl 5 Mg Tablet) 10 mg PO DAILY PRN; Protocol PRN Reason: Constipation (see protocol) Diltiazem HCl (Diltiazem 30 Mg Tablet) 30 mg PO Q6H PRN PRN Reason: tachycardia HR>120 bpm Ferrous Sulfate (Ferrous Sulfate Ec 325 Mg Tablet) 65 mg PO DAILY [facility] Last Admin: 10/18/20 09:24 Dose: 65 mg Documented by: Latanoprost (Latanoprost 0.005% Op Soln 2.5 Ml Btl) 1 drop EYE-BOTH DAILY [facility] Last Admin: 10/19/20 09:32 Dose: Not Given Documented by: Levothyroxine Sodium (Levothyroxine 25 Mcg Tablet) 25 mcg PO DAILY [facility] Last Admin: 10/19/20 09:31 Dose: 25 mcg Documented by: Nitroglycerin (Nitroglycerin 0.4 Mg Sublingual Tablet) 0.4 mg SUBLINGUAL Q5M PRN PRN Reason: CHEST PAIN Nitroglycerin (Nitroglycerin 0.4 Mg Sublingual Tablet) 0.4 mg SUBLINGUAL Q5M PRN PRN Reason: CHEST PAIN Stop: 10/20/20 07:00 Ondansetron HCl (Ondansetron 2 Mg/Ml Sdv 2 Ml) 4 mg IVP Q6H PRN PRN Reason: NAUSEA AND VOMITING Ondansetron HCl (Ondansetron 2 Mg/Ml Sdv 2 Ml) 4 mg IVP Q8H PRN PRN Reason: vomiting, or N/V if npo Ondansetron HCl (Ondansetron 2 Mg/Ml Sdv 2 Ml) 4 mg IVP Q2M PRN PRN Reason: NAUSEA Pantoprazole Sodium (Pantoprazole Dr 40 Mg Tablet) 40 mg PO BID [facility] Last Admin: 10/19/20 09:31 Dose: 40 mg Documented by: Potassium Chloride (Potassium Chloride Er 20 Meq Tablet) 40 meq PO DAILY [facility] Last Admin: 10/19/20 09:30 Dose: 40 meq Documented by: Regadenoson (Regadenoson 0.4 Mg/5 Ml Syringe) 0.4 mg IVP ONCE PRN PRN Reason: Lexiscan Stress Test Sotalol HCl (Sotalol 80 Mg Tablet) 80 mg PO BID@0900,2100 [facility] Last Admin: 10/19/20 09:36 Dose: 80 mg Documented by: Spironolactone (Spironolactone 25 Mg Tablet) 12.5 mg PO DAILY [facility] Last Admin: 10/19/20 09:31 Dose: 12.5 mg Documented by: Sucralfate (Sucralfate 1 Gm Tablet) 1 gm PO BID [facility] Last Admin: 10/19/20 09:31 Dose: 1 gm Documented by: Timolol Maleate (Timolol 0.5% Op Soln 5 Ml Btl) 1 drop EYEAFF DAILY [facility] Last Admin: 10/19/20 09:32 Dose: Not Given Documented by: Vitals/I&O/Wt Last Vital Signs Temp 98 F 10/18/20 03:28 Pulse 53 L 10/19/20 10:29 Resp 24 H 10/19/20 10:29 BP 121/81 10/19/20 10:29 Pulse Ox 96 10/19/20 04:32 10/18/20 10/19/20 10/19/20 22:59 06:59 14:59 Intake Total 480 / 480 Balance 480 / 480 Weight last 48 hrs Weight 68.492 kg Physical Exam Const: COMMON NORMALS: patient oriented x3 HENMT: COMMON NORMALS: normocephalic and atraumatic HEAD & SCALP: normocephalic and atraumatic Neck/C-Spine: COMMON NORMALS: no JVD Resp: COMMON NORMALS: clear to auscultation bilaterally EFFORT & INSPECTION: Yes symmetric chest movement AUSCULTATION: clear to auscultation bilaterally Cardio: COMMON NORMALS: no JVD, regular rate, regular rhythm, S1 normal heart sound present, S2 normal heart sound present and Peripheral pulses 2+ throughout RATE: regular rate RHYTHM: regular rhythm HEART SOUNDS: S1 normal heart sound present and S2 normal heart sound present PERIPHERAL PULSES: Peripheral pulses 2+ throughout OTHER: Irregularly irregular, S1-S2 variable intensity. GI: COMMON NORMALS: Normal to inspection, nondistended, normoactive bowel sounds present, Soft to palpation, non-tender, No hepatosplenomegaly present and no masses AUSCULTATION: Yes normoactive bowel sounds PALPATION: Yes Soft to palpation and Yes No hepatosplenomegaly present RECTAL EXAM: deferred Extremity: COMMON NORMALS: no clubbing, cyanosis or edema and no pedal edema Neuro: COMMON NORMALS: patient oriented x3 Data : 10/19/20 04:10 10/19/20 04:10 A&P Assessment and plan (1) Atrial fibrillation with RVR: A. fib with RVR: 2D echo:Normal left ventricular cavity size. Low normal left ventricular systolic function. Left ventricular ejection fraction is estimated at 50-55 %.Normal right ventricular size and systolic function. Pulmonary artery pressure estimated at 20 mm Hg. Mildly increased left atrial size. Mild tricuspid valve regurgitation. Trace to mild aortic valve regurgitation. TSH:2.89 Initially she was started on Cardizem drip: As well as metoprolol tartrate 50 mg every 12 hours daily. Switched to sotalol 80 MG PO twice daily ,given her h/o paroxysmal Afib. followed by 2-hour EKG after each dose to monitor for corrected QTc interval.Currently corrected Qtc is 410 Currently converted to normal sinus rhythm. Status: Acute (2) Chest pain: Likely secondary to palpitation, cannot conclusively rule out underlying coronary artery disease. Troponin baseline:43, 2-hour troponin:45, 2-hour delta:2.44, troponin 6 hours: 54, 6-hour delta:11 Stress test:was not able to completed because of hiatal hernia interfering with the nucler study quality. Sublingual nitro as needed Status: Acute (3) Hypertension: Blood pressure is currently well controlled. Spironolactone 12.5 mg p.o. daily Status: Acute Qualifiers: Hypertension type: essential hypertension Qualified Code(s): I10 - Essential (primary) hypertension (4) Chronic hypokalemia: Monitor and replace potassium. Spironolactone 12.5 mg p.o. daily Status: Acute (5) Obstructive sleep apnea: Status: Acute Attestations Medical Necessity Statement*: Patient needs to be in hospital for the management of A.fib Coding Level of Care Code Acute Track Watchman for Chg Fwd Diagnoses Atrial fibrillation with RVR I48.91 Chest pain R07.9 Hypertension I10 Hypertension type: essential hypertension Chronic hypokalemia E87.6 Obstructive sleep apnea G47.33
[2020-10-19] MEDS: ferrous sulfate EC 325 mg Tablet PO (11:33)
--- NOTE | 2020-10-19 11:36 | ECG_ITS ---
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1950 Requested By: Grace Jackson Order Number: [id number] Reading MD: JAMA DILLON Measurements Intervals [place] Rate: 56 P: 65 PA: 161 QRS: 13 QRSD: 81 T: -40 QT: 424 QTc: 410 Interpretive Statements SINUS BRADYCARDIA WITH MARKED SINUS ARRHYTHMIA POSSIBLE RIGHT VENTRICULAR CONDUCTION DELAY [RSR (QR) IN V1/V2] NONSPECIFIC T-WAVE ABNORMALITY Compared to ECG 10/18/2020 23:54:53 Possible ischemia no longer present T-wave abnormality still present Electronically Signed On 10-20-2020 20:18:58 CDT by JAMA DILLON [email or web address] greenvilleGenelabs Technologiesacmc [id number]
[2020-10-19 14:00] LABS: NT Pro B Type Natriuretic Pept 312 pg/mL (0-125)
--- NOTE | 2020-10-19 14:41 | PC.CHAP ---
Pastoral Care Encounter/Spiritual Assessment Type of Contact [] Declined director of early childhood visit [] Patient/Family/Request visit [] Outpatient visit [xx] Follow-up visit [] Physician referral [] Code/Alert [xx] Routine visit [] Staff referral [] Actively dying [] Patient sleeping [] Family support [] [] Out of room [] Palliative care [] [] Receiving care in room [] Pre-surgical visit [] Trauma [] Long length of stay [] ICU visit [] Other: Relational/Emotional Strength [xx] Patient feels connected with others/family/visitors/staff [] Distress [] Loneliness/isolation [] Abandonment Spirituality of Patient [xx] Person of Rosa M [xx] Attends Spiritism of their Rosa M [xx] Believes in Prayer [xx] Reads Bible or Jainism materials xx [] There are Spiritual issues to be addressed Stress Analyst Interventions [xx] Prayer [xx] Active listening [xx] Non-anxious presence [] Spiritual/emotional support [] Crisis/trauma care [] Spiritual counseling [] Bereavement support [] Provided bereavement packet [xx] Provided Bible/devotional materials [] Provided toy/stuffed animal, coloring book to patient or family member [] Provided Communion [] Anointing/[place] [] Salvation [xx] Completed spiritual assessment [] Other: Impact on Illness or Injury [] Angry [] Fearful [] Anxious [] Often cries [] Exhaustion [] Unable to work [] Unable to attend druze [] Unable to walk/stand [] Unable to read [] Unable to drive [] Unable to eat/drink [] Unable to sleep [] Unable to be with family [] Patient intubated [] Other: Summary Patient is feeling better. She is talkative and pleasant and thinks she will be discharged Thursday. Time spent with patient 17 minutes
--- NOTE | 2020-10-19 16:23 | PC.NURSE ---
Shift Note Frequent safety and comfort rounds continue. Orders and/or nursing care completed as indicated. Patient monitored for response to intervention and treatment(s). Education provided includes New medications and monitoring, Heart healthy diet and discharge plan. Patient and/or account retention representative verbalized understanding. Will continue to monitor.
[2020-10-19] MEDS: nitroglycerin 0.4 mg sublingual Tablet SUBLINGUAL (18:18)
--- NOTE | 2020-10-19 18:21 | PC.NURSE ---
patient reports vomiting up supper Stating i think its my hernia and the yogurt patient settled back to bed a few mins later this nurse checked on patient she continues to report pain and holding right side 7.5/[address] tafoya instructions received to give tylenol and see if it helps upon entering room with tylenol patient states i don't think ill be able to hold it down placed another call to Dr Tafoya with patient reports instructions received to give nitro sublingual due to patient reporting chest pain that radiates through back Nitro x1 given patient reports pain has lessened some to 5/10 blood pressure dropped some patient remains alert and oriented in good spirits gentle massage to relax patients back patient reports she feels better now Dr tafoya notified of changes and showed to bedside verbal instructions given to give 0.5 morphine IVP
[2020-10-19] MEDS: morphine 4 mg/mL SDV 1 mL 0.5 MG IVP (19:04)
--- NOTE | 2020-10-19 20:08 | PC.NURSE ---
Received bedside report from CARLOS Davalos. Patient having chest pain at time of report. Dr Street in to see patient. Patient given 0.5mg Morphine IVP as ordered. . Patient does report relief of pain however. Patient able to ambulate to bathroom with difficulty and no increase in pain. Noted patient IV to be infiltrated at this time. IV discontinued. Catheter intact. Redness to site resolving. Attempted new IV access without success. Patient stated, I am probably going to be discharged tomorrow anyway. Instructed importance of having IV access. She verbalized understanding and will attempt to gain access at later time this evening per patient request.
[2020-10-19] MEDS: sotalol 80 mg Tablet 40 MG PO (21:14)
--- NOTE | 2020-10-19 23:36 | ECG_ITS ---
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1950 Requested By: Grace Jackson Order Number: [id number] Reading MD: JAMA DILLON Measurements Intervals [place] Rate: 53 P: 63 LA: 149 QRS: 4 QRSD: 82 T: -6 QT: 460 QTc: 436 Interpretive Statements SINUS BRADYCARDIA WITH SINUS ARRHYTHMIA POSSIBLE RIGHT VENTRICULAR CONDUCTION DELAY [RSR (QR) IN V1/V2] SEPTAL MYOCARDIAL INFARCTION , PROBABLY OLD [40+ ms Q WAVE IN V1/V2] Compared to ECG 10/19/2020 11:37:31 Myocardial infarct finding now present T-wave abnormality no longer present Electronically Signed On 10-20-2020 20:18:18 CDT by JAMA DILLON [id number]
[2020-10-20] VITALS (11 sets, daily range): BP systolic 92–151; BP diastolic 56–98; PULSE 50–57; RESP 15–27; TEMP 36.6–36.8; O2SAT 96–99
[2020-10-20 05:58] LABS: Basophils # 0.1 10^3/uL (0.0-0.1); Basophils % 0.8 %; Eosinophils # 0.2 10^3/uL (0.0-0.8); Eosinophils % 2.9 %; Hemoglobin 14.1 g/dL (11.5-15.3); Lymphocytes # 2.1 10^3/uL (0.8-4.8); Lymphocytes % 29.2 %; Mean Corpuscular HGB Conc 33.6 g/dL (30.0-36.0); Mean Corpuscular Hemoglobin 29.7 pg (28.0-34.0); Mean Corpuscular Volume 88.6 fl (81-99); Mean Platelet Volume 10.1 fL (7.4-10.4); Monocytes # 0.5 10^3/uL (0.2-0.9); Monocytes % 6.3 %; Neutrophils # 4.34 10^3/uL (1.8-7.7); Neutrophils % 60.5 %; Nucleated Red Blood Cells % 0 %; Platelet Count 205 10^3/cmm (130-400); Red Blood Count 4.74 10^6/uL (4.1-5.3); Red Cell Distribution Width 12.9 % (12.1-15.1); White Blood Count 7.2 10^3/uL (4.0-10.0)
--- NOTE | 2020-10-20 06:41 | PC.NURSE ---
Shift Note Frequent safety and comfort rounds continue. Orders and/or nursing care completed as indicated. Patient monitored for response to intervention and treatment(s). Education provided includes sotalol. Patient verbalized complete understanding. patient sitting on edge of bed. Patient reports chest pain improved but is complaining of a headache. Patient reports she is usually a heavy coffee drinker and has not had any in a couple of days. Provided coffee to patient and she expressed great thanks as this will help with her headache. Patient denies other needs presently. No distress observed. Will continue to monitor.
[2020-10-20] MEDS: ferrous sulfate EC 325 mg Tablet PO (09:23)
[2020-10-20] MEDS: spironolactone 25 mg Tablet 12.5 MG PO (09:23)
[2020-10-20] MEDS: pantoprazole DR 40 mg Tablet PO ×2 (09:23→18:11)
[2020-10-20] MEDS: sotalol 80 mg Tablet 40 MG PO ×2 (09:23→19:30)
[2020-10-20] MEDS: levothyroxine 25 mcg Tablet PO (09:23)
[2020-10-20] MEDS: sucralfate 1 gm Tablet PO ×2 (09:23→18:11)
[2020-10-20] MEDS: potassium chloride ER 20 mEq Tablet 40 MEQ PO (09:23)
[2020-10-20] MEDS: apixaban 5 mg Tablet PO (09:24)
--- NOTE | 2020-10-20 12:26 | P.PN_ITS ---
Subjective Subjective: Interval history: Patient had couple of episodes of and bradycardia Medications: Reviewed: Yes Medication Review Details: Current Medications Acetaminophen (Acetaminophen 325 Mg Tablet) 650 mg PO Q6H PRN PRN Reason: Mild/Mod Pain Or Temp >/= 101 Acetaminophen (Acetaminophen 325 Mg Tablet) 650 mg PO Q6H PRN PRN Reason: Mild/Mod Pain Or Temp >/= 101 Aminophylline (Aminophylline 25 Mg/Ml Sdv 10 Ml) 25 mg IVP Q2M PRN PRN Reason: see dose instructions Stop: 10/20/20 07:00 Apixaban (Apixaban 5 Mg Tablet) 5 mg PO BID [facility] Last Admin: 10/19/20 09:31 Dose: 5 mg Documented by: Bisacodyl (Bisacodyl 5 Mg Tablet) 10 mg PO DAILY PRN; Protocol PRN Reason: Constipation (see protocol) Diltiazem HCl (Diltiazem 30 Mg Tablet) 30 mg PO Q6H PRN PRN Reason: tachycardia HR>120 bpm Ferrous Sulfate (Ferrous Sulfate Ec 325 Mg Tablet) 65 mg PO DAILY [facility] Last Admin: 10/18/20 09:24 Dose: 65 mg Documented by: Latanoprost (Latanoprost 0.005% Op Soln 2.5 Ml Btl) 1 drop EYE-BOTH DAILY [facility] Last Admin: 10/19/20 09:32 Dose: Not Given Documented by: Levothyroxine Sodium (Levothyroxine 25 Mcg Tablet) 25 mcg PO DAILY [facility] Last Admin: 10/19/20 09:31 Dose: 25 mcg Documented by: Nitroglycerin (Nitroglycerin 0.4 Mg Sublingual Tablet) 0.4 mg SUBLINGUAL Q5M PRN PRN Reason: CHEST PAIN Nitroglycerin (Nitroglycerin 0.4 Mg Sublingual Tablet) 0.4 mg SUBLINGUAL Q5M PRN PRN Reason: CHEST PAIN Stop: 10/20/20 07:00 Ondansetron HCl (Ondansetron 2 Mg/Ml Sdv 2 Ml) 4 mg IVP Q6H PRN PRN Reason: NAUSEA AND VOMITING Ondansetron HCl (Ondansetron 2 Mg/Ml Sdv 2 Ml) 4 mg IVP Q8H PRN PRN Reason: vomiting, or N/V if npo Ondansetron HCl (Ondansetron 2 Mg/Ml Sdv 2 Ml) 4 mg IVP Q2M PRN PRN Reason: NAUSEA Pantoprazole Sodium (Pantoprazole Dr 40 Mg Tablet) 40 mg PO BID [facility] Last Admin: 10/19/20 09:31 Dose: 40 mg Documented by: Potassium Chloride (Potassium Chloride Er 20 Meq Tablet) 40 meq PO DAILY [facility] Last Admin: 10/19/20 09:30 Dose: 40 meq Documented by: Regadenoson (Regadenoson 0.4 Mg/5 Ml Syringe) 0.4 mg IVP ONCE PRN PRN Reason: Lexiscan Stress Test Sotalol HCl (Sotalol 80 Mg Tablet) 80 mg PO BID@0900,2100 [facility] Last Admin: 10/19/20 09:36 Dose: 80 mg Documented by: Spironolactone (Spironolactone 25 Mg Tablet) 12.5 mg PO DAILY [facility] Last Admin: 10/19/20 09:31 Dose: 12.5 mg Documented by: Sucralfate (Sucralfate 1 Gm Tablet) 1 gm PO BID [facility] Last Admin: 10/19/20 09:31 Dose: 1 gm Documented by: Timolol Maleate (Timolol 0.5% Op Soln 5 Ml Btl) 1 drop EYEAFF DAILY [facility] Last Admin: 10/19/20 09:32 Dose: Not Given Documented by: Vitals/I&O/Wt Last Vital Signs Temp 98.2 F 10/20/20 03:55 Pulse 54 L 10/20/20 08:17 Resp 20 H 10/20/20 08:17 BP 100/69 10/20/20 08:17 Pulse Ox 97 10/20/20 08:17 10/19/20 10/20/20 10/20/20 22:59 06:59 14:59 Intake Total 240 / 240 Balance 240 / 240 Data : 10/20/20 05:30 10/19/20 04:10 A&P Assessment and plan (1) Recurrent chest pain: Patient is complaining of chest pain radiating towards the back from the left breast occasionally to the left arm. Due to hiatal hernia she was not able to perform nuclear stress test, also due to atrial fibrillation and rapid ventricle response we may will not be able to do dobutamine stress test as it can throw her back into A. fib which was difficult to control. 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 Jackson was suggestive of proceeding angiogram since patient continues to have chest pain despite of optimal treatment for gastritis and hiatal hernia. I agree with it. Due to bradycardia with heart rate going down into 40s sotalol was cut down to 40 mg twice daily by Dr. Street, it is appropriate at the moment we will see as per progress of the patient. QT QTC is within normal limit. I have detailed discussion with the patient regarding all the risk benefit and alternative for the procedure. She understand risk of ble eding while being on antiplatelet and anticoagulation in case she requires stent. Currently she denies hematemesis bright red blood per rectum or reyna. She understand the risk of stroke contrast-induced nephropathy major minor bleeding requiring blood transfusion, urgent emergent bypass or vascular surgery, hematoma infection radial or femoral arterial occlusion during or after PCI. Patient would like to proceed with it. We are planning angiogram tomorrow morning. May add isosorbide mononitrate 15 mg twice a day. Status: Acute (2) Atrial fibrillation with RVR: Reduce sotalol to 40 mg twice daily for now with may will increase night dose to 60 if required. I will hold apixaban in the night for possible left heart cath in the morning. Patient may can be overlapped with Lovenox Status: Acute (3) Hypertension: Well-controlled Status: Acute Qualifiers: Hypertension type: essential hypertension Qualified Code(s): I10 - Essential (primary) hypertension (4) Obstructive sleep apnea: As per medicine Status: Acute Additional A&P Information NSTEMI type 2 in setting of A. fib with RVR Hypothyroidism Thank you for allowing me to participate in patient's care. Please feel free to call with questions or concerns. 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
--- NOTE | 2020-10-20 14:27 | P.PN_ITS ---
Subjective Subjective: Interval history: Patient was seen and examined this morning.Sotolol dose was cut back to 40 mg po bid as she her h/r is in mid 50 to low 50s. Medications: Reviewed: Yes Medication Review Details: Current Medications Acetaminophen (Acetaminophen 325 Mg Tablet) 650 mg PO Q6H PRN PRN Reason: Mild/Mod Pain Or Temp >/= 101 Acetaminophen (Acetaminophen 325 Mg Tablet) 650 mg PO Q6H PRN PRN Reason: Mild/Mod Pain Or Temp >/= 101 Aminophylline (Aminophylline 25 Mg/Ml Sdv 10 Ml) 25 mg IVP Q2M PRN PRN Reason: see dose instructions Stop: 10/20/20 07:00 Apixaban (Apixaban 5 Mg Tablet) 5 mg PO BID [facility] Last Admin: 10/19/20 09:31 Dose: 5 mg Documented by: Bisacodyl (Bisacodyl 5 Mg Tablet) 10 mg PO DAILY PRN; Protocol PRN Reason: Constipation (see protocol) Diltiazem HCl (Diltiazem 30 Mg Tablet) 30 mg PO Q6H PRN PRN Reason: tachycardia HR>120 bpm Ferrous Sulfate (Ferrous Sulfate Ec 325 Mg Tablet) 65 mg PO DAILY [facility] Last Admin: 10/18/20 09:24 Dose: 65 mg Documented by: Latanoprost (Latanoprost 0.005% Op Soln 2.5 Ml Btl) 1 drop EYE-BOTH DAILY [facility] Last Admin: 10/19/20 09:32 Dose: Not Given Documented by: Levothyroxine Sodium (Levothyroxine 25 Mcg Tablet) 25 mcg PO DAILY [facility] Last Admin: 10/19/20 09:31 Dose: 25 mcg Documented by: Nitroglycerin (Nitroglycerin 0.4 Mg Sublingual Tablet) 0.4 mg SUBLINGUAL Q5M PRN PRN Reason: CHEST PAIN Nitroglycerin (Nitroglycerin 0.4 Mg Sublingual Tablet) 0.4 mg SUBLINGUAL Q5M PRN PRN Reason: CHEST PAIN Stop: 10/20/20 07:00 Ondansetron HCl (Ondansetron 2 Mg/Ml Sdv 2 Ml) 4 mg IVP Q6H PRN PRN Reason: NAUSEA AND VOMITING Ondansetron HCl (Ondansetron 2 Mg/Ml Sdv 2 Ml) 4 mg IVP Q8H PRN PRN Reason: vomiting, or N/V if npo Ondansetron HCl (Ondansetron 2 Mg/Ml Sdv 2 Ml) 4 mg IVP Q2M PRN PRN Reason: NAUSEA Pantoprazole Sodium (Pantoprazole Dr 40 Mg Tablet) 40 mg PO BID [facility] Last Admin: 10/19/20 09:31 Dose: 40 mg Documented by: Potassium Chloride (Potassium Chloride Er 20 Meq Tablet) 40 meq PO DAILY [facility] Last Admin: 10/19/20 09:30 Dose: 40 meq Documented by: Regadenoson (Regadenoson 0.4 Mg/5 Ml Syringe) 0.4 mg IVP ONCE PRN PRN Reason: Lexiscan Stress Test Sotalol HCl (Sotalol 80 Mg Tablet) 80 mg PO BID@0900,2100 [facility] Last Admin: 10/19/20 09:36 Dose: 80 mg Documented by: Spironolactone (Spironolactone 25 Mg Tablet) 12.5 mg PO DAILY [facility] Last Admin: 10/19/20 09:31 Dose: 12.5 mg Documented by: Sucralfate (Sucralfate 1 Gm Tablet) 1 gm PO BID [facility] Last Admin: 10/19/20 09:31 Dose: 1 gm Documented by: Timolol Maleate (Timolol 0.5% Op Soln 5 Ml Btl) 1 drop EYEAFF DAILY [facility] Last Admin: 10/19/20 09:32 Dose: Not Given Documented by: Vitals/I&O/Wt Last Vital Signs Temp 98.2 F 10/20/20 03:55 Pulse 54 L 10/20/20 08:17 Resp 20 H 10/20/20 08:17 BP 100/69 10/20/20 08:17 Pulse Ox 97 10/20/20 08:17 10/19/20 10/20/20 10/20/20 22:59 06:59 14:59 Intake Total 240 / 240 Balance 240 / 240 Physical Exam Const: COMMON NORMALS: patient oriented x3 HENMT: COMMON NORMALS: normocephalic and atraumatic HEAD & SCALP: normocephalic and atraumatic Neck/C-Spine: COMMON NORMALS: no JVD Resp: COMMON NORMALS: clear to auscultation bilaterally EFFORT & INSPECTION: Yes symmetric chest movement AUSCULTATION: clear to auscultation bilaterally Cardio: COMMON NORMALS: no JVD, regular rate, regular rhythm, S1 normal heart sound present, S2 normal heart sound present and Peripheral pulses 2+ throughout RATE: regular rate RHYTHM: regular rhythm HEART SOUNDS: S1 normal heart sound present and S2 normal heart sound present PERIPHERAL PULSES: Peripheral pulses 2+ throughout OTHER: Irregularly irregular, S1-S2 variable intensity. GI: COMMON NORMALS: Normal to inspection, nondistended, normoactive bowel sounds present, Soft to palpation, non-tender, No hepatosplenomegaly present and no masses AUSCULTATION: Yes normoactive bowel sounds PALPATION: Yes Soft to palpation and Yes No hepatosplenomegaly present RECTAL EXAM: deferred Extremity: COMMON NORMALS: no clubbing, cyanosis or edema and no pedal edema Neuro: COMMON NORMALS: patient oriented x3 Data : 10/20/20 05:30 10/19/20 04:10 A&P Assessment and plan (1) Atrial fibrillation with RVR: A. fib with RVR: 2D echo:Normal left ventricular cavity size. Low normal left ventricular systolic function. Left ventricular ejection fraction is estimated at 50-55 %.Normal right ventricular size and systolic function. Pulmonary artery pressure estimated at 20 mm Hg. Mildly increased left atrial size. Mild tricuspid valve regurgitation. Trace to mild aortic valve regurgitation. TSH:2.89 Initially she was started on Cardizem drip: As well as metoprolol tartrate 50 mg every 12 hours daily. on sotalol 40 MG PO twice daily ,given her h/o paroxysmal Afib. followed by 2- hour EKG after each dose to monitor for corrected QTc interval.Currently corrected Qtc is 436 Currently converted to normal sinus rhythm. Status: Acute (2) Chest pain: Likely secondary to palpitation, cannot conclusively rule out underlying coronary artery disease. Troponin baseline:43, 2-hour troponin:45, 2-hour delta:2.44, troponin 6 hours: 54, 6-hour delta:11 Stress test:was not able to completed because of hiatal hernia interfering with the nuclear study. Doubatime stress test is not a good option as per cardiology as she may revert back to a.fib. Currently awaiting Cardiac Cath. Sublingual nitro as needed Status: Acute (3) Hypertension: Blood pressure is currently well controlled. Spironolactone 12.5 mg p.o. daily Status: Acute Qualifiers: Hypertension type: essential hypertension Qualified Code(s): I10 - Essential (primary) hypertension (4) Chronic hypokalemia: Monitor and replace potassium. Spironolactone 12.5 mg p.o. 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
[2020-10-20] MEDS: isosorbide mononitrate 20 mg Tablet PO (18:11)
[2020-10-20] MEDS: clopidogrel 300 mg Tablet PO (19:30)
--- NOTE | 2020-10-20 19:44 | PC.NURSE ---
Shift Note Frequent safety and comfort rounds continue. Orders and/or nursing care completed as indicated. Patient monitored for response to intervention and treatment(s). Education provided includes angiogram procedure new medications. Patient and/or technology sales representative verbalized understanding. Will continue to monitor.
--- NOTE | 2020-10-20 20:39 | ECG_ITS ---
[facility] Test Date: 2020-10-20 Pat Name: Ave López Department: Room: 101 Gender: Female Patient Manager: : 1950 Requested By: Grace Jackson Order Number: [id number] Reading MD: JAMA DILLON Measurements Intervals [place] Rate: 49 P: 69 MA: 145 QRS: 6 QRSD: 85 T: -22 QT: 451 QTc: 407 Interpretive Statements SINUS BRADYCARDIA LOW QRS VOLTAGE IN PRECORDIAL LEADS [QRS DEFLECTION < 1.0 mV IN CHEST LEADS] POSSIBLE RIGHT VENTRICULAR CONDUCTION DELAY [RSR (QR) IN V1/V2] NONSPECIFIC T-WAVE ABNORMALITY Compared to ECG 10/19/2020 23:45:31 Low QRS voltage now present T-wave abnormality now present Sinus arrhythmia no longer present Myocardial infarct finding no longer present Electronically Signed On 10-21-2020 15:05:21 CDT by JAMA DILLON [id number]
[2020-10-21] VITALS (10 sets, daily range): BP systolic 91–142; BP diastolic 60–97; PULSE 45–60; RESP 12–19; TEMP 36.4–36.8; O2SAT 98–99
[2020-10-21 04:05] LABS: Basophils # 0.1 10^3/uL (0.0-0.1); Basophils % 1.1 %; Eosinophils # 0.2 10^3/uL (0.0-0.8); Eosinophils % 3.1 %; Hematocrit 39.9 % (37.0-47.0); Hemoglobin 13.2 g/dL (11.5-15.3); Lymphocytes # 2.5 10^3/uL (0.8-4.8); Lymphocytes % 38.2 %; Mean Corpuscular HGB Conc 33.1 g/dL (30.0-36.0); Mean Corpuscular Hemoglobin 29.1 pg (28.0-34.0); Mean Corpuscular Volume 87.9 fl (81-99); Mean Platelet Volume 10.2 fL (7.4-10.4); Monocytes # 0.5 10^3/uL (0.2-0.9); Monocytes % 7.8 %; Neutrophils # 3.23 10^3/uL (1.8-7.7); Neutrophils % 49.6 %; Nucleated Red Blood Cells % 0 %; Platelet Count 197 10^3/cmm (130-400); Red Blood Count 4.54 10^6/uL (4.1-5.3); Red Cell Distribution Width 13.1 % (12.1-15.1); White Blood Count 6.5 10^3/uL (4.0-10.0)
[2020-10-21 04:25] LABS: Blood Urea Nitrogen 9 mg/dL (8-23); Calcium 8.7 mg/dL (8.5-10.5); Carbon Dioxide 22 mmol/L (22-29); Chloride 110 mmol/L (98-107); Glucose 100 mg/dL (65-115); Osmolality Calculated 291 mOsm/kg (285-295); Sodium 141 mmol/L (136-145)
[2020-10-21 04:26] LABS: Anion Gap 12.9 (5-19)
[2020-10-21 04:27] LABS: Potassium 3.9 mmol/L (3.5-5.1)
--- NOTE | 2020-10-21 06:33 | PC.NURSE ---
Shift Note Frequent safety and comfort rounds continue. Orders and/or nursing care completed as indicated. Patient monitored for response to intervention and treatment(s). Education provided includes NPO diet and cardiac cath. Patient and/or sales representative door to door verbalized understanding. Will continue to monitor.
[2020-10-21] MEDS: sodium chloride 0.9% 1,000 ML 50 ML IV (07:59)
[2020-10-21] MEDS: diphenhydrAMINE 50 mg Capsule PO (07:59)
--- NOTE | 2020-10-21 08:43 | XACV_ITS ---
Exam Room: [facility] [place] Ht: 155 cm Wt: 68 kg BSA: 1.74 m2 Gender: Female : 1950 Any Known Allergies: Other Exam Priority: Routine Procedure(s): Procedure Description: Diagnostic procedure Procedure Description: Coronary Angiography Diagnostic Cath Status: Elective Diagnostic Findings * No disease noted in the Left Main, Left Anterior Descending, Right, or Circumflex coronary arteries. * Coronary angiography shows left dominance. Conclusions 1. No disease noted in the Left Main, Left Anterior Descending, Right, or Circumflex coronary arteries. Recommendations * Continue current medical management and risk factor modification. Pressures Phase:Rest AO : 92 / 58 ( 83 ) @ 8:35:00 AM 85 / 57 ( 70 ) @ 8:37:00 AM Clinical Evaluation EBL: 5mL-10mL Procedural Details Procedure Consent Obtained. Pre-Procedure Time Out. Identified patient by full name and date of as verbalized by the patient/guarantor. Does the consent match the physician's order: Yes. Accurate & Complete Informed Consent: Yes. Inpatient/Outpatient History & Physical on Chart: Yes. If H&P is completed, is and addenduem needed: No; If yes, is the addendum complete: N/A. Visualize and Verify Site with Patient/Guarantor: N/A. Relevant Radiology Images available: Yes. Pre-op teaching completed and patient verbalized understanding. The risks, benefits, and alternatives of sedation and/or procedure were discussed by physician. The patient agrees to continue. Procedure started. [facility] Clinical Fraility Score: 3: Managing Well. 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 Chest Pain Symptom Assessment: Typical Angina Symptoms. Correct patient, site and procedure confirmed by cath team. Current diagnosis: NSTEMI. PERRLA. Strong, equal hand building mechanic bilaterally. Lungs clear x 5 lobes. IV Site on Arrival: 18 gauge in the left anticubital. IV Fluids: 0.9% NaCl at KVO. 0 mL infused prior to quality assurance qa lab technician. Pre Procedural Pulses: right radial was 3+. Oxygen started at 2liters/min via nasal canula. right groin was prepped with chloroprep then draped in the usual sterile fashion. right radial was prepped with chloroprep then draped in the usual sterile fashion. Physician notified. Baseline sample Acquired. HR: 45 BPM. Beti Mcallister RN circulating. Current Diagnosis : NSTEMI. Physician arrived. Physician scrubbed in. Immediate Pre-Procedure Time Out. Correct Patient: Yes; Correct Procedure: Yes; Correct Site: Yes; Correct Patient Position: Yes; Correct Supplies: Yes; Dried Flammable Prep: Yes; Blood Products Available: N/A;. Lidocaine 1% infiltrated to the right radial. Arterial access obtained. A 5 azeri TIG catheter in over wire. Multiple views taken of left coronary artery. Catheter redirected to the RCA. Multiple views taken of right coronary artery. Catheter removed over the exchange wire. TR band placed. Hemostasis obtained. A TR Band was successful obtaining hemostatsis at the Right Radial artery insertion site. Post Procedure: Pulses reassessed and unchanged. PERRLA. Strong, equal hand building mechanic bilaterally. No VTE prophylaxis required. Medication's Wasted: Lidocaine 1% = 18 mL. Medication's Wasted: Nitro = 49.8 mg. Medication's Wasted: Heparin = 1000 units. Medication's Wasted: Other = Fentanyl 75 mg. Total IV fluids: 81 mL. Contrast type used: Omnipaque 300 mgI/mL, 500 mL bottle. Complications: None. Estimated blood loss: 5mL-10mL. Procedure completed. Patient transferred by wheelchair to 1st floor. Vital chart was stopped. Access Site Site: Right Radial artery Sheath Size: 6 Fr Hemostasis Method: TR Band Hemostasis Success: Successful Procedure Medications Start: 9:05 AM Stop: 9:05 AM Medication: Fentanyl Amount: 25 mcg Route: I.V. Start: 9:20 AM Stop: 9:20 AM Medication: Versed Amount: 1 mg Route: I.V. Start: 9:29 AM Stop: 9:29 AM Medication: Versed Amount: 1 mg Route: I.V. Start: 9:32 AM Stop: 9:32 AM Medication: Nitrogylcerin Amount: 200 mcg Route: I.A. Start: 9:36 AM Stop: 9:36 AM Medication: Heparin Amount: 5000 units Route: I.V. I, the attending physician, have reviewed and verified all procedure medications. Yes, all medications given per verbal order History/Risk Factors Hypertension: Yes Dyslipidemia: No Peripheral Arterial Disease (PAD): No Myocardial Infarction (MN): No Obesity: No Renal Disease: No Tobacco Use: Never Prior Interventions PCI: No CABG: No Valve Surgery: No Report Signatures Finalized by Dawood Finley MD on 11/04/2020 10:24 PM
--- NOTE | 2020-10-21 09:23 | W.PM.OPSUD ---
Surgery/Procedure H&P Update DATE OF PROCEDURE: October 21, 2020 DATE H&P PERFORMED: 10/20/20 PREOP DIAGNOSIS: Chest pain, EKG changes PLANNED PROCEDURE: Operation Date: 10/21/20 09:00 Proposed Procedures p Cardiac Catheterization(Left) - Dawood Finley MD PATIENT REASSESSED PRIOR TO SEDATION, WITH NO CHANGE NOTED: Yes PHYSICAL EXAM: alert, oriented x 3 and clear to auscultation bilaterally AIRWAY EVAL/ANESTHESIA PLAN: ASA II, Risks, benefits & alternatives of sedation and/or procedure discussed and Patient agrees to continue as planned
--- NOTE | 2020-10-21 09:47 | PM.PN ---
Subjective Subjective: Interval history: Patient is in sinus bradycardia. Did not show any significant coronary artery disease. Medications: Reviewed: Yes Medication Review Details: Current Medications Acetaminophen (Acetaminophen 325 Mg Tablet) 650 mg PO Q6H PRN PRN Reason: Mild/Mod Pain Or Temp >/= 101 Acetaminophen (Acetaminophen 325 Mg Tablet) 650 mg PO Q6H PRN PRN Reason: Mild/Mod Pain Or Temp >/= 101 Aminophylline (Aminophylline 25 Mg/Ml Sdv 10 Ml) 25 mg IVP Q2M PRN PRN Reason: see dose instructions Stop: 10/20/20 07:00 Apixaban (Apixaban 5 Mg Tablet) 5 mg PO BID [facility] Last Admin: 10/19/20 09:31 Dose: 5 mg Documented by: Bisacodyl (Bisacodyl 5 Mg Tablet) 10 mg PO DAILY PRN; Protocol PRN Reason: Constipation (see protocol) Diltiazem HCl (Diltiazem 30 Mg Tablet) 30 mg PO Q6H PRN PRN Reason: tachycardia HR>120 bpm Ferrous Sulfate (Ferrous Sulfate Ec 325 Mg Tablet) 65 mg PO DAILY [facility] Last Admin: 10/18/20 09:24 Dose: 65 mg Documented by: Latanoprost (Latanoprost 0.005% Op Soln 2.5 Ml Btl) 1 drop EYE-BOTH DAILY [facility] Last Admin: 10/19/20 09:32 Dose: Not Given Documented by: Levothyroxine Sodium (Levothyroxine 25 Mcg Tablet) 25 mcg PO DAILY [facility] Last Admin: 10/19/20 09:31 Dose: 25 mcg Documented by: Nitroglycerin (Nitroglycerin 0.4 Mg Sublingual Tablet) 0.4 mg SUBLINGUAL Q5M PRN PRN Reason: CHEST PAIN Nitroglycerin (Nitroglycerin 0.4 Mg Sublingual Tablet) 0.4 mg SUBLINGUAL Q5M PRN PRN Reason: CHEST PAIN Stop: 10/20/20 07:00 Ondansetron HCl (Ondansetron 2 Mg/Ml Sdv 2 Ml) 4 mg IVP Q6H PRN PRN Reason: NAUSEA AND VOMITING Ondansetron HCl (Ondansetron 2 Mg/Ml Sdv 2 Ml) 4 mg IVP Q8H PRN PRN Reason: vomiting, or N/V if npo Ondansetron HCl (Ondansetron 2 Mg/Ml Sdv 2 Ml) 4 mg IVP Q2M PRN PRN Reason: NAUSEA Pantoprazole Sodium (Pantoprazole Dr 40 Mg Tablet) 40 mg PO BID [facility] Last Admin: 10/19/20 09:31 Dose: 40 mg Documented by: Potassium Chloride (Potassium Chloride Er 20 Meq Tablet) 40 meq PO DAILY [facility] Last Admin: 10/19/20 09:30 Dose: 40 meq Documented by: Regadenoson (Regadenoson 0.4 Mg/5 Ml Syringe) 0.4 mg IVP ONCE PRN PRN Reason: Lexiscan Stress Test Sotalol HCl (Sotalol 80 Mg Tablet) 80 mg PO BID@0900,2100 [facility] Last Admin: 10/19/20 09:36 Dose: 80 mg Documented by: Spironolactone (Spironolactone 25 Mg Tablet) 12.5 mg PO DAILY [facility] Last Admin: 10/19/20 09:31 Dose: 12.5 mg Documented by: Sucralfate (Sucralfate 1 Gm Tablet) 1 gm PO BID [facility] Last Admin: 10/19/20 09:31 Dose: 1 gm Documented by: Timolol Maleate (Timolol 0.5% Op Soln 5 Ml Btl) 1 drop EYEAFF DAILY [facility] Last Admin: 10/19/20 09:32 Dose: Not Given Documented by: Vitals/I&O/Wt Last Vital Signs Temp 98.1 F 10/21/20 07:45 Pulse 57 L 10/21/20 07:45 Resp 16 10/21/20 07:45 BP 121/73 10/21/20 07:45 Pulse Ox 99 10/21/20 07:45 10/20/20 10/21/20 10/21/20 22:59 06:59 14:59 Intake Total 360 / 600 400 / 1000 Balance 360 / 600 400 / 1000 Physical Exam Narrative: EXAM NARRATIVE: GENERAL: Patient is alert, awake and oriented x3. NECK: No jugular vein distension. HEENT: No cyanosis. No icterus. No pallor. HEART: Regular S1 and S2. No murmur, rub or gallop. LUNGS: Clear to auscultate bilaterally. ABDOMEN: Soft, nontender and nondistended. Positive bowel sounds. No guarding, rebound or tenderness. CENTRAL NERVOUS SYSTEM: Grossly nonfocal. EXTREMITIES: Lower extremities without edema bilaterally. Const: COMMON NORMALS: alert Resp: COMMON NORMALS: clear to auscultation bilaterally AUSCULTATION: clear to auscultation bilaterally Neuro: SENSORIUM/ORIENTATION: Yes alert Data : 10/21/20 03:57 10/21/20 03:57 A&P Assessment and plan (1) Recurrent chest pain: Status post left heart cath showing no significant coronary artery disease, most likely musculoskeletal or perception of chest pain while in A. fib with RVR. Continue current regimen. Status: Acute (2) Atrial fibrillation with RVR: Reduce sotalol to 40 mg twice a day, apixaban will be started back from this evening. Patient already got 5000 heparin in the [place]. Status: Acute (3) Hypertension: Well-controlled Status: Acute Qualifiers: Hypertension type: essential hypertension Qualified Code(s): I10 - Essential (primary) hypertension (4) Obstructive sleep apnea: As per medicine Status: Acute Additional A&P Information NSTEMI type 2 in setting of A. fib with RVR Hypothyroidism Thank you for allowing me to participate in patient's care. Please feel free to call with questions or concerns. Attestations Medical Necessity Statement*: As per medicine. 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
--- NOTE | 2020-10-21 09:55 | PC.NURSE ---
patient back from lab animal technologist procedure at this time TR band in place patient is alert oriented and asking when she can go home
--- NOTE | 2020-10-21 10:03 | PC.NURSE ---
patient's medication orders all on hold after transfer back from lab tester Dr lima notified Malia notified of patients HR of 48 at this time ok to hold am sotalol dose
[2020-10-21] MEDS: potassium chloride ER 20 mEq Tablet 40 MEQ PO (11:22)
[2020-10-21] MEDS: pantoprazole DR 40 mg Tablet PO ×2 (11:22→17:56)
[2020-10-21] MEDS: sucralfate 1 gm Tablet PO ×2 (11:22→17:56)
[2020-10-21] MEDS: isosorbide mononitrate 20 mg Tablet PO (11:22)
--- NOTE | 2020-10-21 11:22 | PC.NURSE ---
late administration of medications due to customs and border protection officer hold
[2020-10-21] MEDS: levothyroxine 25 mcg Tablet PO (11:23)
[2020-10-21] MEDS: ferrous sulfate EC 325 mg Tablet PO (11:23)
[2020-10-21] MEDS: spironolactone 25 mg Tablet 12.5 MG PO (11:24)
--- NOTE | 2020-10-21 11:35 | PM.DCS ---
Discharge Providers Date of Admission: 10/16/20 16:34 Date of Discharge: October 21, 2020 Attending Provider at Admission: Davis Street MD Attending Provider at Discharge: Davis Street MD Primary Care Provider: Dagoberto Wright MD Diagnoses at Discharge Discharge Diagnosis (1) Recurrent chest pain: Status: Acute (2) Atrial fibrillation with RVR: Status: Acute (3) Hypertension: Status: Acute Qualifiers: Hypertension type: essential hypertension Qualified Code(s): I10 - Essential (primary) hypertension (4) Obstructive sleep apnea: Status: Acute Reason for Visit Reason for Visit: chest pain, lightheaded Hospital Course Hospital Course 70 year old female with past medical history of hypothyroidism, recently diagnosed A. fib , hypertension, chronic hypokalemia, came in with chief complaint of worsening palpitation and chest pain started since Thursday.During these episodes of palpitation she feels central chest pain stabbing in nature radiating to the back, is accompanied with shortness of breath and nausea, and dizziness each episode last for couple of minutes, she has experienced multiple episodes since Thursday.Upon arrival in the ER she was worked up for above-mentioned complaint: Imaging studies: X-ray chest:Normal , EKG: A. fib with RVR Pertinent labs: WBC:11.6 T , H&H:16.9/50.4, platelet count:330 , serum sodium:144, serum potassium:2.6, BUN serum creatinine: 24/0.8. Troponin trend was in line with NSTEMI type II. Patient was admitted for management of A. fib with RVR and chest pain. During the hospital stay she was had 2D echo:Normal left ventricular cavity size. Low normal left ventricular systolic function. Left ventricular ejection fraction is estimated at 50-55 %.Normal right ventricular size and systolic function. Pulmonary artery pressure estimated at 20 mm Hg. Mildly increased left atrial size. Mild tricuspid valve regurgitation. Trace to mild aortic valve regurgitation. TSH:2.89. Initially she was started on Cardizem drip: As well as metoprolol tartrate 50 mg every 12 hours daily. Later switched to sotalol given her h/o paroxysmal Afib. followed by 2-hour EKG after each dose to monitor for corrected QTc interval.Corrected Qtc is 436 . She converted to normal sinus rhythm. She was discharged on sotalol 40 MG PO twice daily. For her chest pain nuclear stress test was attempted but later could not be completed because of hiatal hernia interfering with the nuclear study. Doubatime stress test is not a good option as per cardiology as she may revert back to severely symptomatic A. fib. Underwent cardiac cath with nonocclusive coronary artery disease. She responded well to the above medical management and is being discharged in stable condition she will continue to follow cardiology as an outpatient. Physical Exam Const: COMMON NORMALS: patient oriented x3 HENMT: COMMON NORMALS: normocephalic and atraumatic HEAD & SCALP: normocephalic and atraumatic Resp: COMMON NORMALS: clear to auscultation bilaterally EFFORT & INSPECTION: Yes symmetric chest movement AUSCULTATION: clear to auscultation bilaterally Cardio: COMMON NORMALS: regular rate, regular rhythm, S1 normal heart sound present, S2 normal heart sound present and Peripheral pulses 2+ throughout RATE: regular rate RHYTHM: regular rhythm HEART SOUNDS: S1 normal heart sound present and S2 normal heart sound present PERIPHERAL PULSES: Peripheral pulses 2+ throughout GI: COMMON NORMALS: Normal to inspection, nondistended, normoactive bowel sounds present, Soft to palpation, non-tender, No hepatosplenomegaly present and no masses AUSCULTATION: Yes normoactive bowel sounds PALPATION: Yes Soft to palpation and Yes No hepatosplenomegaly present RECTAL EXAM: deferred Extremity: COMMON NORMALS: no clubbing, cyanosis or edema and no pedal edema Neuro: COMMON NORMALS: patient oriented x3 Discharge Data Data Completed and Pending: Completed Studies During Hospitalization Category Date Time Status XR chest 1V myles ble [id number] Stat Exams 10/16/20 12:26 Completed CV. echo complete * [id number] Routine Ultrasound 10/17/20 17:39 Completed Pending at discharge Category Date Time Status CLINICAL LABORATORY SCIENTIST request for service Routin e Exams 10/21/20 08:43 Ordered Sestamibi Stress Test Request Maxi ne Exams 10/18/20 19:33 Stop Req Complete Blood Co unt w/Auto AM LABS Lab 10/22/20 04:00 Ordered Complete Blood Co unt w/Auto AM LABS Lab 10/23/20 04:00 Ordered Labs from last 24 hours 10/21/20 10/21/20 03:57 03:57 WBC 6.5 RBC 4.54 Hgb 13.2 Hct 39.9 MCV 87.9 MCH 29.1 MCHC 33.1 RDW 13.1 Plt Count 197 MPV 10.2 Neut % (Auto) 49.6 Lymph % (Auto) 38.2 [place] % (Auto) 7.8 Eos % (Auto) 3.1 Baso % (Auto) 1.1 Neut # (Auto) 3.23 Lymph # (Auto) 2.5 [place] # (Auto) 0.5 Eos # (Auto) 0.2 Baso # (Auto) 0.1 Nucleated RBC % (a uto) 0 Nucleated RBCs # 0.0 Sodium 141 Potassium 3.9 Chloride 110 H Carbon Dioxide 22 Anion Gap 12.9 BUN 9 Creatinine 0.7 GFR Calculation 83.0 L Glucose 100 Calculated Osmolal ity 291 Calcium 8.7 Vitals: Last Vital Signs Temp 97.6 F 10/21/20 11:16 Pulse 53 L 10/21/20 11:16 Resp 15 10/21/20 11:16 BP 124/70 10/21/20 11:16 Pulse Ox 98 10/21/20 11:16 Discharge Plan Discharge Patient Disposition: Home Condition: Stable Prescriptions: New sotalol 80 mg tablet 40 mg PO BID Qty: 60 RF: 3 Continued levothyroxine 25 mcg tablet 25 mcg PO DAILY RF: 0 brimonidine 0.33 % gel 1 applic topical DAILY RF: 0 timolol 0.5 % drops 1 drp ophthalmic (eye) DAILY RF: 0 (DME) THUMB SPICA FAST FORM See Rx Instructions .Route .MEDSUPPLY Qty: 1 RF: 0 potassium chloride 10 mEq capsule, extended release 10 meq PO DAILY RF: 0 Eliquis 5 mg tablet 5 mg PO BID RF: 0 sucralfate 1 gram tablet 1 g PO BID RF: 0 latanoprost 0.005 % Drops 1 drp OPHTHALMIC (EYE) DAILY RF: 0 ferrous sulfate 325 mg (65 mg iron) Tablet 65 mg PO DAILY RF: 0 pantoprazole 40 mg tablet,delayed release (DR/EC) 40 mg PO BID RF: 0 Discontinued metoprolol tartrate 25 mg tablet 25 mg PO BID RF: 0 Discharge Orders: Discharge Order (Routine); Ordered 10/21/20 Ordered By: Davis Street Referrals: Jose العلي M.D [Physician] - 2 weeks Discharge Diet: Regular Discharge Activity: Resume usual activity Patient Instructions: Left Heart Catheterization (DC), Opioid Safety, Post Angiogram Home Care Instructions Discharge Attestations Time Spent in Discharge Care*: less than 30 min Specific Discharge Activities: educating patient, educating and/or supporting family/caregiver, discussing with pcp/other providers, discussing with case preparer and liner/social workers/dc planners, documenting/other paperwork and evaluating patient/reviewing data Status at Discharge: Cognitive status at discharge: cognitively intact, Behavioral status at discharge: cooperative, Functional status at discharge: independent ambulation Overall status at discharge: patient is back to baseline Quality Metrics Clinical Quality Measures During this hospital stay, did patient experience: None Coding Level of Care Code Acute Chg FW DC note Exam Detailed Diagnoses Recurrent chest pain R07.9 Atrial fibrillation with RVR I48.91 Hypertension I10 Hypertension type: essential hypertension Obstructive sleep apnea G47.33
--- NOTE | 2020-10-21 11:40 | PC.NURSE ---
notified patient of discharge orders educated patient on the need to make sure TR band was removed and stable before sending patient home patient verbalized understanding
--- NOTE | 2020-10-21 12:04 | PC.SOCIAL ---
IMM Update Pg. 2 of IMM updated and reviewed with patient who verbalized understanding. Copy provided.
--- NOTE | 2020-10-21 12:50 | PC.NURSE ---
patient blood pressure low at this time notified Dr lima instructions received to discontinue isosorbide
--- NOTE | 2020-10-21 12:53 | PC.NURSE ---
patients blood pressure low at this time also patient reports feeling fatigued notified Dr Finley instructions to Dc Isosorbide at this time
--- NOTE | 2020-10-21 15:44 | ECG_ITS ---
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
[2020-10-21] MEDS: sotalol 80 mg Tablet 40 MG PO (16:08)
--- NOTE | 2020-10-21 16:36 | PC.NURSE ---
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
--- NOTE | 2020-10-21 16:41 | PC.NURSE ---
patient given choice of discharge if she felt ready patient expressed she really would like to go home this nurse asked patient to ambulate in room to see how she feels with excretion patient was able to walk in room for 5 min before having to sit down feeling SOB, dizzy and weak. reported finding to Dr tafoya orders received to obtain EKG give 2100 dose sotalol now and cancel discharge; will monitor patient
--- NOTE | 2020-10-21 18:00 | PC.NURSE ---
Shift Note Frequent safety and comfort rounds continue. Orders and/or nursing care completed as indicated. Patient monitored for response to intervention and treatment(s). Education provided includes post angiogram care. Patient and/or veterans contact representative verbalized understanding. Will continue to monitor.
[2020-10-22 03:18] VITALS: PULSE 56
[2020-10-22 03:20] VITALS: BP 136/93; PULSE 57; RESP 15; TEMP 36.8; O2SAT 98
--- NOTE | 2020-10-22 04:10 | PC.NURSE ---
Shift Note Frequent safety and comfort rounds continue. Orders and/or nursing care completed as indicated. Patient monitored for response to intervention and treatment(s). Will continue to monitor.
[2020-10-22 05:22] LABS: Basophils # 0.1 10^3/uL (0.0-0.1); Basophils % 1.1 %; Eosinophils # 0.2 10^3/uL (0.0-0.8); Eosinophils % 3.3 %; Hemoglobin 14.1 g/dL (11.5-15.3); Lymphocytes # 2.3 10^3/uL (0.8-4.8); Lymphocytes % 34.2 %; Mean Corpuscular HGB Conc 32.8 g/dL (30.0-36.0); Mean Corpuscular Hemoglobin 29.4 pg (28.0-34.0); Mean Corpuscular Volume 89.6 fl (81-99); Mean Platelet Volume 10.4 fL (7.4-10.4); Monocytes # 0.4 10^3/uL (0.2-0.9); Monocytes % 6.3 %; Neutrophils # 3.64 10^3/uL (1.8-7.7); Neutrophils % 54.9 %; Nucleated Red Blood Cells % 0 %; Platelet Count 209 10^3/cmm (130-400); Red Cell Distribution Width 13.1 % (12.1-15.1); White Blood Count 6.6 10^3/uL (4.0-10.0)
--- NOTE | 2020-10-22 06:00 | USR_ITS ---
PROCEDURE INFORMATION: Exam: US Duplex Bilateral Extracranial Arteries Exam date and time: 10/22/2020 6:00 AM Age: 70 years old Clinical indication: Dizziness TECHNIQUE: Imaging protocol: Real-time Duplex ultrasound scan of the bilateral carotid and vertebral arteries combining domínguez scale, color Doppler and spectral waveform analysis. Bilateral exam. COMPARISON: CT head wo con* [id number] 10/22/2020 7:43 AM FINDINGS: Right common carotid artery: Minimal atherosclerotic plaque in the carotid bulb but otherwise unremarkable. No occlusion or stenosis. Waveforms are normal. Right internal carotid artery: Unremarkable. No occlusion or stenosis. Waveforms are normal. Right ICA/CCA ratio: Within normal limits. Right external carotid artery: No stenosis in the origin. Right vertebral artery: Unremarkable. Antegrade flow. Left common carotid artery: Minimal atherosclerotic plaque in the carotid bulb but otherwise unremarkable. No occlusion or stenosis. Waveforms are normal. Left internal carotid artery: Unremarkable. No occlusion or stenosis. Waveforms are normal. Left ICA/CCA ratio: Within normal limits. Left external carotid artery: No stenosis in the origin. Left vertebral artery: Unremarkable. Antegrade flow. US/CV carotid duplex BI* [id number] IMPRESSION: No carotid arterial stenosis. REFERENCES: SRU CRITERIA. The degree of internal carotid artery stenosis is based on criteria defined by the Society of Radiologists in Ultrasound (SRU). Normal is no stenosis. Mild is less than 50% stenosis. Moderate is 50-69% stenosis. Severe is greater than 69% stenosis to near occlusion. Near occlusion is a markedly narrowed lumen. Total occlusion is no detectable patent lumen.
--- NOTE | 2020-10-22 07:00 | CTR_ITS ---
PROCEDURE INFORMATION: Exam: CT Head Without Contrast Exam date and time: 10/22/2020 7:00 AM Age: 70 years old Clinical indication: Dizziness TECHNIQUE: Imaging protocol: Computed tomography of the head without contrast. Radiation optimization: All CT scans at this facility use at least one of these dose optimization techniques: automated exposure control; mA and/or kV adjustment per patient size (includes targeted exams where dose is matched to clinical indication); or iterative reconstruction. COMPARISON: RF Esophagram [id number] 03/16/2018 8:46 AM RADIATION DOSE METRICS: Total DLP (mGy-cm): 750.64 FINDINGS: Brain: No intracranial hemorrhage, edema or other acute abnormalities are seen in the brain. There is no mass effect or midline shift. There is moderate generalized chronic atrophy with prominence of the ventricles and sulci. Cerebral ventricles: The ventricles are prominent due to chronic atrophy. Paranasal sinuses: Visualized sinuses are unremarkable. No fluid levels. Mastoid air cells: Visualized mastoid air cells are well aerated. Bones/joints: Unremarkable. No acute fracture. Soft tissues: Unremarkable. CT/CT head wo con* [id number] IMPRESSION: 1. No acute intracranial abnormality. 2. Moderate generalized chronic atrophy. Radiation Dose CTDIVOL = (mGy): DLP = 750.64 (mGy-cm)
[2020-10-22 07:51] VITALS: BP 145/90; PULSE 66; RESP 18; TEMP 36.6; O2SAT 99
[2020-10-22] MEDS: potassium chloride ER 20 mEq Tablet 40 MEQ PO (08:54)
[2020-10-22] MEDS: sucralfate 1 gm Tablet PO (08:54)
[2020-10-22] MEDS: pantoprazole DR 40 mg Tablet PO (08:54)
[2020-10-22] MEDS: levothyroxine 25 mcg Tablet PO (08:54)
[2020-10-22] MEDS: sotalol 80 mg Tablet 40 MG PO (08:55)
[2020-10-22] MEDS: ferrous sulfate EC 325 mg Tablet PO (08:55)
[2020-10-22 12:11] VITALS: BP 109/67; PULSE 62; RESP 18; TEMP 36.6; O2SAT 98
[2020-10-22 14:00] VITALS: PULSE 64
[2020-10-22 14:16] VITALS: BP 109/67; PULSE 62; RESP 18; TEMP 36.4; O2SAT 98
--- NOTE | 2020-10-22 15:45 | P.PN_ITS ---
Subjective Subjective: Interval history: Patient underwent left heart cath did not show any significant obstructive coronary artery disease. Overnight sotalol was held but resumed this morning due to bradycardia currently heart rate stays around 60s with 40 mg of sotalol twice a day. Overall feeling much better denies any dizziness yesterday discharge was canceled due to persistent dizziness. Medications: Reviewed: Yes Medication Review Details: Current Medications Acetaminophen (Acetaminophen 325 Mg Tablet) 650 mg PO Q6H PRN PRN Reason: Mild/Mod Pain Or Temp >/= 101 Acetaminophen (Acetaminophen 325 Mg Tablet) 650 mg PO Q6H PRN PRN Reason: Mild/Mod Pain Or Temp >/= 101 Aminophylline (Aminophylline 25 Mg/Ml Sdv 10 Ml) 25 mg IVP Q2M PRN PRN Reason: see dose instructions Stop: 10/20/20 07:00 Apixaban (Apixaban 5 Mg Tablet) 5 mg PO BID [facility] Last Admin: 10/19/20 09:31 Dose: 5 mg Documented by: Bisacodyl (Bisacodyl 5 Mg Tablet) 10 mg PO DAILY PRN; Protocol PRN Reason: Constipation (see protocol) Diltiazem HCl (Diltiazem 30 Mg Tablet) 30 mg PO Q6H PRN PRN Reason: tachycardia HR>120 bpm Ferrous Sulfate (Ferrous Sulfate Ec 325 Mg Tablet) 65 mg PO DAILY [facility] Last Admin: 10/18/20 09:24 Dose: 65 mg Documented by: Latanoprost (Latanoprost 0.005% Op Soln 2.5 Ml Btl) 1 drop EYE-BOTH DAILY [facility] Last Admin: 10/19/20 09:32 Dose: Not Given Documented by: Levothyroxine Sodium (Levothyroxine 25 Mcg Tablet) 25 mcg PO DAILY [facility] Last Admin: 10/19/20 09:31 Dose: 25 mcg Documented by: Nitroglycerin (Nitroglycerin 0.4 Mg Sublingual Tablet) 0.4 mg SUBLINGUAL Q5M PRN PRN Reason: CHEST PAIN Nitroglycerin (Nitroglycerin 0.4 Mg Sublingual Tablet) 0.4 mg SUBLINGUAL Q5M PRN PRN Reason: CHEST PAIN Stop: 10/20/20 07:00 Ondansetron HCl (Ondansetron 2 Mg/Ml Sdv 2 Ml) 4 mg IVP Q6H PRN PRN Reason: NAUSEA AND VOMITING Ondansetron HCl (Ondansetron 2 Mg/Ml Sdv 2 Ml) 4 mg IVP Q8H PRN PRN Reason: vomiting, or N/V if npo Ondansetron HCl (Ondansetron 2 Mg/Ml Sdv 2 Ml) 4 mg IVP Q2M PRN PRN Reason: NAUSEA Pantoprazole Sodium (Pantoprazole Dr 40 Mg Tablet) 40 mg PO BID [facility] Last Admin: 10/19/20 09:31 Dose: 40 mg Documented by: Potassium Chloride (Potassium Chloride Er 20 Meq Tablet) 40 meq PO DAILY [facility] Last Admin: 10/19/20 09:30 Dose: 40 meq Documented by: Regadenoson (Regadenoson 0.4 Mg/5 Ml Syringe) 0.4 mg IVP ONCE PRN PRN Reason: Lexiscan Stress Test Sotalol HCl (Sotalol 80 Mg Tablet) 80 mg PO BID@0900,2100 [facility] Last Admin: 10/19/20 09:36 Dose: 80 mg Documented by: Spironolactone (Spironolactone 25 Mg Tablet) 12.5 mg PO DAILY [facility] Last Admin: 10/19/20 09:31 Dose: 12.5 mg Documented by: Sucralfate (Sucralfate 1 Gm Tablet) 1 gm PO BID [facility] Last Admin: 10/19/20 09:31 Dose: 1 gm Documented by: Timolol Maleate (Timolol 0.5% Op Soln 5 Ml Btl) 1 drop EYEAFF DAILY [facility] Last Admin: 10/19/20 09:32 Dose: Not Given Documented by: Vitals/I&O/Wt Last Vital Signs Temp 97.6 F 10/22/20 14:16 Pulse 62 10/22/20 14:16 Resp 18 10/22/20 14:16 BP 109/67 10/22/20 14:16 Pulse Ox 98 10/22/20 14:16 10/22/20 10/22/20 10/22/20 06:59 14:59 22:59 Intake Total 300 / 2217.5 500 / 500 Balance 300 / 2217.5 500 / 500 Weight last 48 hrs Weight 148 lb 14.4 oz Physical Exam 2 Narrative: EXAM NARRATIVE: GENERAL: Patient is alert, awake and oriented x3. NECK: No jugular vein distension. HEENT: No cyanosis. No icterus. No pallor. HEART: Regular S1 and S2. No murmur, rub or gallop. LUNGS: Clear to auscultate bilaterally. ABDOMEN: Soft, nontender and nondistended. Positive bowel sounds. No guarding, rebound or tenderness. CENTRAL NERVOUS SYSTEM: Grossly nonfocal. EXTREMITIES: Lower extremities without edema bilaterally. Const: COMMON NORMALS: alert Resp: COMMON NORMALS: clear to auscultation bilaterally AUSCULTATION: clear to auscultation bilaterally Neuro: SENSORIUM/ORIENTATION: Yes alert Data : 10/22/20 04:26 10/21/20 03:57 A&P Assessment and plan (1) Recurrent chest pain: Most likely musculoskeletal or secondary A. fib perception of chest pain as coronary angiogram did not show significant disease . Extracardiac cause of chest pain may be started on Status: Acute (2) Atrial fibrillation with RVR: Continue sotalol 40 mg twice a day along with apixaban. May need event monitor as an outpatient rule out tachybradycardia syndrome Status: Acute (3) Hypertension: Well-controlled Status: Acute Qualifiers: Hypertension type: essential hypertension Qualified Code(s): I10 - Essential (primary) hypertension (4) Obstructive sleep apnea: As per medicine Status: Acute Additional A&P Information NSTEMI type 2 in setting of A. fib with RVR Hypothyroidism Thank you for allowing me to participate in patient's care. Please feel free to call with questions or concerns. Attestations Medical Necessity Statement*: Patient can be discharged home. Coding Level of Care Code Established Pt Acute Building And Construction Manager for Chg Fwd Patient Type Established History Detailed Exam Detailed Medical Decision Making Moderate Complexity Diagnoses Recurrent chest pain R07.9 Atrial fibrillation with RVR I48.91 Hypertension I10 Hypertension type: essential hypertension Obstructive sleep apnea G47.33
--- NOTE | 2020-10-23 09:24 | PC.SOCIAL ---
discharge follow up call made. Patient is feeling good. Appointment made with Alicia Jules for 11-05. Patient made aware of appointment date and time. Cardiology called and made appointment for holter monitor with patient for 11-01.
== END 2020-10-22 14:40 | disposition home or self-care (01) | DRG 282 ==
LOC: ER 12:26 → CSU 16:55
PROVIDERS: Internal Medicine Cardiovascular Disease; Admitting Provider Internal Medicine; Emergency Provider Family Medicine; PCP Family Medicine; Visit Provider Internal Medicine
DX: I48.91 Unspecified atrial fibrillation (principal); I21.A1 Myocardial infarction type 2; G47.33 Obstructive sleep apnea (adult) (pediatric); I10 Essential (primary) hypertension; E03.9 Hypothyroidism, unspecified; E87.6 Hypokalemia; I47.1 Supraventricular tachycardia; Z90.710 Acquired absence of both cervix and uterus; Z88.2 Allergy status to sulfonamides; Z88.0 Allergy status to penicillin
CPT/HCPCS: 36415; 70450; 71045; 80048; 80053; 83735; 83880; 84132; 84443; 84484; 85025; 93005; 93306; 93454; 93880; 96365; 96367; 96375; 96376; 99285; C1769; C1887; C1894; J1644; J2250; J2270; J3010; J3480; J3490; J7030; Q0163; Q9967

== ENCOUNTER → 2020-12-19 10:30 | Outpatient (BNVA) | payer MEDICARE, SELFPAY | PROVIDERS: PCP Family Medicine; Visit Provider Thoracic Surgery (Cardiothoracic Vascular Surgery) | DX: Z20.822 Contact with and (suspected) exposure to COVID-19 (principal); I49.5 Sick sinus syndrome | CPT/HCPCS: 87635 ==

== ENCOUNTER 2020-12-24 18:00 | Observation (INO) | payer MEDICARE, SELFPAY ==
[2020-12-19 09:05] VITALS: BMI 28.1
[2020-12-19 09:37] LABS: Basophils % 0.5 %; Eosinophils # 0.1 10^3/uL (0.0-0.8); Eosinophils % 1.7 %; Hematocrit 45.3 % (37.0-47.0); Hemoglobin 14.5 g/dL (11.5-15.3); Lymphocytes # 1.9 10^3/uL (0.8-4.8); Lymphocytes % 22.5 %; Mean Corpuscular Hemoglobin 29.1 pg (28.0-34.0); Mean Platelet Volume 10.2 fL (7.4-10.4); Monocytes # 0.5 10^3/uL (0.2-0.9); Monocytes % 5.8 %; Neutrophils % 69.1 %; Nucleated Red Blood Cells % 0 %; Platelet Count 246 10^3/cmm (130-400); Red Blood Count 4.98 10^6/uL (4.1-5.3); Red Cell Distribution Width 13.2 % (12.1-15.1); White Blood Count 8.3 10^3/uL (4.0-10.0)
[2020-12-19 09:40] LABS: Charge for UA Resulting for Rev
--- NOTE | 2020-12-19 09:46 | ANES.PREANE2 ---
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 + hiatal hernia, hx of stenosis Metabolic: Metabolic: Thyroid Anesthetic Plan: ASA status: 4 Anesthesia: MAC Risk of > 500 ml blood loss (7ml/kg in children): No PFSH Anesthesia PFSH: Medical History Atrial fibrillation Atrial fibrillation with RVR Chest pain Chronic hypokalemia Hypertension Obstructive sleep apnea Recurrent chest pain SVT (supraventricular tachycardia) Surgical History H/O esophageal hernia repair H/O: hysterectomy Social History Smoking and tobacco status: never smoked Alcohol intake: never Data Anesthesia CBC & Chem 7: 12/19/20 09:25 12/19/20 09:25 Other Labs: Laboratory Results - last 48 hr 12/19/20 09:25 WBC 8.3 RBC 4.98 Hgb 14.5 Hct 45.3 MCV 91.0 MCH 29.1 MCHC 32.0 RDW 13.2 Plt Count 246 MPV 10.2 Neut % (Auto) 69.1 Lymph % (Auto) 22.5 [place] % (Auto) 5.8 Eos % (Auto) 1.7 Baso % (Auto) 0.5 Neut # (Auto) 5.70 Lymph # (Auto) 1.9 [place] # (Auto) 0.5 Eos # (Auto) 0.1 Baso # (Auto) 0.0 Nucleated RBC % (auto) 0 Nucleated RBCs # 0.0 Cardiac Studies: Echocardiogram 10/17/20 Cardiac Event Monitor 11/01/20
[2020-12-19 09:51] LABS: Glucose Urine UA Norm (Normal); Protein Urine Neg (Negative); Specific Gravity, Urine 1.005 (1.005-1.030); Urine Appearance Clear (CLEAR); Urine Color Yellow (Yellow); pH Urine 5 (5-7)
[2020-12-19 09:52] LABS: Add Urine Microscopic? YES; Bilirubin Urine Neg (Negative); Blood Urine Neg (Negative); Ketones Urine Negative (Negative); Leukocyte Esterase Urine 2+ (Negative); Nitrate Urine Negative (Negative); Urobilinogen Urine Norm (Negative)
[2020-12-19 10:10] LABS: Anion Gap 13.4 (5-19); Blood Urea Nitrogen 14 mg/dL (8-23); Calcium 9.4 mg/dL (8.5-10.5); Carbon Dioxide 27 mmol/L (22-29); Chloride 104 mmol/L (98-107); Glomerular Filtration Rate 99.1 mL/min (90-130); Glucose 93 mg/dL (65-115); Osmolality Calculated 290 mOsm/kg (285-295); Potassium 4.4 mmol/L (3.5-5.1); Sodium 140 mmol/L (136-145)
[2020-12-19 10:32] LABS: Add Urine Culture? No; Amorphous Sediment Urine TRACE /hpf; Bacteria Urine 1+ /hpf; Mucus Urine TRACE /hpf; Renal Epithelial Cells Urine 0 /hpf
[2020-12-24] VITALS (16 sets, daily range): BP systolic 117–158; BP diastolic 70–133; PULSE 64–94; RESP 9–26; TEMP 36.4–37; O2SAT 88–97
--- NOTE | 2020-12-24 | SCC_ITS ---
Procedure Done: Dual-chamber pacemaker implantation 245.7 seconds of fluoroscopic guidance, for a cumulative dose of 38.65 mGy, was provided to Dr. Olvera by the radiology department. C-arm images of the chest were saved for the patient's permanent record. [facility]
--- NOTE | 2020-12-24 12:34 | SC_ITS ---
WS: [id number] C-ARM RADIOGRAPHS CHEST; 2 IMAGES HISTORY: Pacemaker implantation COMPARISON: None available. Intraoperative imaging during pacer insertion. Pacer wires are noted over the thoracic spine which is probably due to rotation of the patient. SC/C-arm FL for Pacemaker IMPRESSION: Intraoperative imaging during pacer insertion.
--- NOTE | 2020-12-24 12:39 | P.ANESUD_ITS ---
Pre-Anesthetic Update Pre-Anesthetic Assessment: Date of Surgery/Procedure: 12/24/20 Preop Val gnosis: Sinus syndrome with paroxysmal A. fib Proposed Procedure: Operation Date: 12/24/20 13:50 Proposed Procedures p Pacemaker Insertion(Not Applicable) - Raheem Olvera MD Any changes to Pre-Anesthetic Assessment?: No Vitals: Temperature 97.5 F L 12/24/20 12:34 Temperature Source Temporal Artery S can 12/24/20 12:34 Pulse Rate 64 12/24/20 12:34 Respiratory Rate 16 12/24/20 12:34 Blood Pressure 152/107 12/24/20 12:34 Blood Pressure Latisha n 122 12/24/20 12:34 Pulse Oximetry 96 12/24/20 12:34 Oxygen Delivery Me thod 12/24/20 12:34 Exam: Pre-Anes Outpt Exam: alert, oriented x 3, clear to auscultation bilaterally and regular rate & rhythm Cardiac Studies: Echocardiogram 10/17/20 Cardiac Event Monitor 11/01/20
[2020-12-24] MEDS: sodium chloride 0.9% 1,000 ML 30 ML IV (12:52)
[2020-12-24] MEDS: vancomycin 1,500 MG/300 ML PIGGYBACK 200 MG IV (12:52)
[2020-12-24] MEDS: ondansetron 2 mg/ML SDV 2 mL 4 MG IVP ×2 (13:10→18:45)
[2020-12-24] MEDS: diphenhydrAMINE 50 mg/mL SDV 1mL 12.5 MG IVP (13:25)
--- NOTE | 2020-12-24 13:34 | PC.NURSE ---
PT HAD ALLERGIC REACTION TO IV VANCOMYCIN TODAY. WITHIN 10 MINS OF STARTING THE VANC, PT BEGAN VOMITING, DISPLAYED JADE'S SYNDROME , AND C/O ITCHING OF PALMS AND FEET. VANCOMYCIN STOPPED IMMEDIATELY, ZOFRAN GIVEN IV. THEN ANESTHESIA CONSULTED AND I RECEIVED AN ORDER FOR BENADRYL IV WHICH WAS GIVEN. RN OR CHARGE NURSE NOTIFIED AND SHE WILL RELAY TO SURGEON.
--- NOTE | 2020-12-24 14:30 | W.PM.OPSUD ---
Surgery/Procedure H&P Update DATE OF PROCEDURE: December 24, 2020 DATE H&P PERFORMED: 12/11/20 H&P UPDATE INFORMATION: I have reviewed H&P completed within last 30 days, I have examined patient prior to procedure and Changes to prior documentation as noted here CHANGES TO PREVIOUS DOCUMENTATION: Nausea/vomiting with pre-op vancomycin (not originally listed as an allergy or side effect). Resolved with discontinuation. Given Levaquin, 500mg for pre-op abx. Tolerated well. Details and risks of procedure reviewed. All questions answered. PREOP DIAGNOSIS: Sinus syndrome with paroxysmal A. fib PLANNED PROCEDURE: Operation Date: 12/24/20 13:50 Proposed Procedures p Pacemaker Insertion(Not Applicable) - Raheem Olvera MD
[2020-12-24] MEDS: levofloxacin-dextrose 5 % 500 MG/100 ML PREMIX 100 MG IV (15:05)
[2020-12-24] MEDS: lidocaine 1% INJ 20 mL INJECTION (15:22)
--- NOTE | 2020-12-24 16:56 | SUR.OPER ---
12/24/[id number] FERRARA PER [address] BONILLA'S REQUEST AND NOTIFIED HIM OF THE CURRENT SITUATION THAT PATIENT IS GOING TO ICU. PT IN SINUS CURRENTLY. DR. FERRARA WILL FOLLOW UP WITH PATIENT TONIGHT AFTER PATIENT IS TRANSFERRED TO ICU.
--- NOTE | 2020-12-24 17:32 | XRR_ITS ---
PROCEDURE INFORMATION: Exam: XR Chest Exam date and time: 12/24/2020 5:32 PM Age: 70 years old Clinical indication: Device placement; Cardiac pacemaker placement or adjustment; Additional info: Status post pacemaker implantation TECHNIQUE: Imaging protocol: XR of the chest. Views: 1 view. COMPARISON: CR XR chest 1V portable [id number] 10/16/2020 12:37 PM FINDINGS: Lungs: No consolidation. Pleural spaces: No pleural effusion. No pneumothorax. Heart/Mediastinum: Interval placement of a pacemaker within the left chest wall. No cardiomegaly. Bones/joints: Unremarkable. XR/XR chest 1V portable [id number] IMPRESSION: Interval placement of a pacemaker within the left chest wall. No acute findings. Radiation Dose CTDIVOL = (mGy): DLP = (mGy-cm)
--- NOTE | 2020-12-24 17:33 | PM.OP ---
Operative Report Date of procedure: December 24, 2020 Pre-op Diagnosis: Sinus syndrome with paroxysmal A. fib Post-op diagnosis: same Procedure Done: Dual-chamber pacemaker implantation Implants: Pacing generator; atrial lead; ventricular lead Pathology: none sent Surgeon: Raheem Olvera Anesthesia: MAC and Local Complications: Paroxysmal atrial fibrillation during atrial lead placements, converted after receiving 5 mg Lopressor and 2.5 mg aliquots. Patient will be monitored in ICU overnight to assess for further arrhythmias. Condition: stable Disposition: ICU Brief History: Ms. López is a pleasant 70-year-old female with paroxysmal atrial fibrillation currently under the care of Dr. العلي. To allow for continued aggressive medical management of her A. fib which results in rapid ventricular response, dual-chamber pacemaker implantation has been recommended. During medical treatment to prophylax against atrial fibrillation was found to develop symptomatic sick sinus syndrome and bradycardia with heart rates down to the 40s. Dr. العلي has recommended pacemaker implantation to allow for continued medical management. Procedure: Procedure: Ms. López was taken to the OR suite and placed in the supine position over a shoulder roll. She received conscious sedation with continuous anesthesia monitoring by. Her entire chest was sterilely prepped and draped. 1% lidocaine was infiltrated in the left subclavicular region. While in Trendelenburg position, utilizing modified seldinger technique, 2 guidewires were placed in the left subclavian vein. This was confirmed in position by fluoroscopy. Next, after infiltration with lidocaine, a subcutaneous pocket was created beginning from the exit point of the guidewire and extending laterally and inferiorly. Cautery was utilized to create the pocket just above the pectoralis musculature. Hemostasis was confirmed. An antibiotic-soaked sponge was placed in the wound. A dilator and tear-away sheath was placed over the first guidewire and advanced under fluoroscopy. Guidewire and dilator were removed. Next using a combination of curved and straight stylettes, the right ventricular lead was placed in position by fluoroscopy. The distal screw was extended. Interrogation was then performed confirming appropriate parameters. The tear-away sheath was then removed and the ventricular lead was sewn to the floor of the subcutaneous pocket. In a similar fashion dilator and tear-away sheath was placed over the 2nd guide wire and advanced under fluoroscopy. Guidewire and dilator were removed. Straight and curved stylettes were used to position the right atrial lead with fluoroscopy. Distal screw was extended. During this placement of the atrial lead, she developed atrial fibrillation/flutter with a heart rate up to 145 bpm. We did attempt rapid atrial pacing with the atrial lead but was unable to convert her back to sinus rhythm. She separately received 2 doses of Lopressor 2.5 mg each over approximately a 6-minute period. We simply made preparation to administer amiodarone, when she subsequently converted back to sinus rhythm with a heart rate of approximately 60. We were therefore able to proceed with appropriate positioning of the atrial lead and interrogation. Interrogation was then performed. Tear-away sheath was then removed. Atrial lead was secured to the floor of the subcutaneous pocket. Pocket was irrigated with antibiotic solution and hemostasis again confirmed. Pacing generator was brought into the field, and after confirmation of hemostasis in the subcutaneous pocket, the leads were connected to the generator with appropriate capture. The entire system was interrogated by fluoroscopy. Leads and generator were secured in the pocket. Sponge and needle count was correct. The wound was then closed in 2 layers of 3-0 Vicryl suture. Skin was reapproximated in a subcuticular manner with 4-0 Monocryl suture. A pressure dressing was applied. The left arm was placed in a sling. López had equal breath sounds bilaterally. [He/She] was then transferred to the intensive care unit for continued monitoring, where chest x-ray is currently pending. I did counselling psychologist with the family at the completion of the procedure. I have conferred with my colleague, Dr. العلي. He has been gracious enough to evaluate Ms. López in the ICU and make further medical recommendations for a rhythm control. Following are the specifics of this system: Right ventricular lead is 52 cm and model 5076. Serial number [id number] Right atrial lead is 45 cm and is model 5076. Serial number [id number]. Ventricular lead had sensing of 8.5 mV with an impedance of 1202 ohms. Threshold was 1.1 V Atrial lead had sensing of 4.3 mV with an impedance of 437 ohms. Threshold was 1.5 V. DriveK generator: Model # [id number] Serial #[id number]
--- NOTE | 2020-12-24 17:38 | ANE.PACU2 ---
Inpatient post-anesthesia follow up: Airway intact: Yes Vital signs: Temperature 97.5 F Pulse Rate 64 Respiratory Rate 16 Blood Pressure 142/93 Pulse Oximetry 96 Oxygen Delivery Me thod Room Air Oxygen Flow Rate Fraction of Inspir ed Oxygen Hydration adequate: Yes Nausea and vomiting: No Pain level: 1 Mental status: Baseline
--- NOTE | 2020-12-24 18:03 | PC.NURSE ---
1730 to ICU via bed accompanied by OR staff. Patient AAOx4, no complaints of pain or discomfort, VSS, NSR on monitor, rate 80s. Dressing c/d/i
[2020-12-24] MEDS: sucralfate 1 gm Tablet PO (18:24)
[2020-12-24] MEDS: lactated ringers 1,000 ML 75 ML IV (18:24)
[2020-12-24] MEDS: HYDROcodone-acetaminophen 5-325 mg Tablet 1 TAB PO (18:58)
[2020-12-24] MEDS: promethazine 25 mg Supp PR (19:41)
[2020-12-24] MEDS: metoprolol tartrate 25 mg Tablet PO (20:15)
[2020-12-24] MEDS: diphenhydrAMINE 25 mg Capsule PO (20:15)
[2020-12-25] VITALS (17 sets, daily range): BP systolic 108–151; BP diastolic 66–85; PULSE 60–74; RESP 12–25; TEMP 36.9–37.2; O2SAT 93–98
[2020-12-25] MEDS: HYDROcodone-acetaminophen 5-325 mg Tablet 1 TAB PO ×2 (05:35→10:49)
--- NOTE | 2020-12-25 06:14 | PC.NURSE ---
Dr. Olvera to bedside, dressing removed from left upper chest, painted with betadine new dressing applied. Tolerated well. Dr. Olvera states that he will discharge patient this AM. Notified that patient has already gotten out of bed this AM without difficulty. Pacemaker interrogation done.
--- NOTE | 2020-12-25 06:18 | PM.DCS ---
Discharge Providers Date of Admission: 12/24/20 18:00 Date of Discharge: December 25, 2020 Attending Provider at Admission: Raheem Olvera MD Attending Provider at Discharge: Raheem Olvera MD Primary Care Provider: Dagoberto Wright MD Diagnoses at Discharge Discharge Diagnosis (1) Atrial fibrillation: Status: Acute Permanent problem details: Paroxysmal atrial fibrillation with bradycardia during medical management Reason for Visit Reason for Visit: Heart Block Hospital Course Hospital Course Ms. Peña is a 70-year-old female with paroxysmal atrial fibrillation that [facility] medical management developed profound bradycardia which was highly symptomatic. To continue medical management of her Lori. deo, pacemaker implantation was recommended by Dr. العلي. She was electively admitted yesterday December 24 where she underwent dual-chamber pacemaker implantation. She did develop atrial fibrillation at during the procedure and was given Lopressor IV with spontaneous conversion back to sinus rhythm. She had an uneventful night with observation in the ICU for observation for potential recurrence of her atrial arrhythmia. She remained in sinus or with paced rhythm throughout the night without further episodes. Metoprolol is now at 25 mg twice daily and she was evaluated by Dr. العلي postoperatively. She was doing well the morning of discharge with minimal incisional discomfort. Surgical dressing was removed and postoperative dressing was applied. Vital signs remained stable. She is in sinus rhythm or paced rhythm. She will be discharged to home today in stable condition she will be scheduled to follow-up in the [facility] in 1 week. Physical Exam Chest: OTHER: Incision site is clean and dry. There is no swelling or evidence for fluid collection. No evidence for infection. Resp: COMMON NORMALS: normal respiratory effort, No use of accessory muscles and clear to auscultation bilaterally AUSCULTATION: clear to auscultation bilaterally Cardio: COMMON NORMALS: regular rate, regular rhythm, S1 normal heart sound present, No gallops present (Cardio) and No murmurs present (Cardio) RATE: regular rate RHYTHM: regular rhythm HEART SOUNDS: S1 normal heart sound present Extremity: COMMON NORMALS: no clubbing, cyanosis or edema Discharge Data Data Completed and Pending: Completed Studies During Hospitalization Category Date Time Status XR chest 1V ymles ble [id number] Stat Exams 12/24/20 17:32 Completed Pending at discharge Category Date Time Status C-arm FL for Pace maker Routine Exams 12/24/20 12:34 Taken Vitals: Last Vital Signs Temp 98.9 F 12/25/20 00:00 Pulse 60 12/25/20 05:49 Resp 12 12/25/20 04:00 BP 117/70 12/25/20 04:00 Pulse Ox 96 12/25/20 04:00 Discharge Plan Discharge Condition: Good Prescriptions: New hydrocodone-acetaminophen 5-325 mg Tablet 1 tab PO Q6H PRN (Reason: Moderate Pain) Qty: 15 RF: 0 metoprolol tartrate 25 mg Tablet 25 mg PO BID@0900,2100 Qty: 60 RF: 4 levofloxacin 500 mg tablet 500 mg PO DAILY 5 Days Qty: 5 RF: 0 Continued levothyroxine 25 mcg tablet 25 mcg PO DAILY RF: 0 brimonidine 0.33 % gel 1 applic topical DAILY RF: 0 timolol 0.5 % drops 1 drp ophthalmic (eye) DAILY RF: 0 fluticasone propionate 0.05 % cream 1 applic topical DAILY PRN (Reason: Allergic Symptoms) RF: 0 potassium chloride 10 mEq capsule, extended release 10 meq PO BID RF: 0 Eliquis 5 mg tablet 5 mg PO BID RF: 0 sucralfate 1 gram tablet 1 g PO BID RF: 0 metoprolol tartrate 25 mg tablet 25 mg PO BID PRN (Reason: rapid heart rate) Qty: 180 RF: 2 latanoprost 0.005 % Drops 1 drp OPHTHALMIC (EYE) DAILY RF: 0 ferrous sulfate 325 mg (65 mg iron) Tablet 65 mg PO DAILY RF: 0 pantoprazole 40 mg tablet,delayed release (DR/EC) 40 mg PO BID RF: 0 Discharge Orders: Discharge Order (Routine); Ordered 12/25/20 Ordered By: Raheem Olvera Referrals: [facility] [Provider Group] - 1 week (Pacemaker Clinic) Discharge Diet: Usual diet Discharge Activity: Limit activity as instructed Patient Instructions: Opioid Safety Activity Restrictions/Additional Instructions: May remove bandage in 2 days No swimming or tub baths x2 weeks May begin showers in 4 days No lifting left arm above eye level for 1 week Report any increasing pain, fever, redness, or drainage from incision. May resume Eliquis on December 27. May resume all other home medications now. Take antibiotics as prescribed, levofloxacin 1 tablet daily for the next 5 days Please call clinic for any concerns. Discharge Attestations Time Spent in Discharge Care*: less than 30 min Specific Discharge Activities: educating patient, discussing with child support case officer/social workers/dc planners, documenting/other paperwork and evaluating patient/reviewing data Status at Discharge: Cognitive status at discharge: cognitively intact, Behavioral status at discharge: cooperative, Functional status at discharge: independent ambulation Overall status at discharge: patient is back to baseline Quality Metrics Clinical Quality Measures During this hospital stay, did patient experience: None Coding Level of Care Code Acute Chg FW DC note Diagnoses Atrial fibrillation I48.91
[2020-12-25] MEDS: levofloxacin-dextrose 5 % 750 MG/150 ML PREMIX 100 MG IV (06:32)
[2020-12-25] MEDS: morphine 4 mg/mL SDV 1 mL 2 MG IVP (08:19)
[2020-12-25] MEDS: levothyroxine 25 mcg Tablet PO (09:17)
[2020-12-25] MEDS: metoprolol tartrate 25 mg Tablet PO (09:18)
[2020-12-25] MEDS: pantoprazole DR 40 mg Tablet PO (09:18)
[2020-12-25] MEDS: sucralfate 1 gm Tablet PO (09:18)
--- NOTE | 2020-12-25 09:48 | PC.NURSE ---
Discharge instructions given to patient, educated on pacemarker, arm restrictions, S/S of infection. IV access x2 removed. Prescription medications sent to preferred pharmacy. Patient verbalizes understanding with no further questions at this time.
--- NOTE | 2020-12-25 10:59 | PC.NURSE ---
Patient's arrived, patient taken to private vehicle via wheelchair by this nurse. driving. No further questions.
== END 2020-12-25 11:10 | disposition home or self-care (01) ==
LOC: ICU 18:09
PROVIDERS: Admitting Provider Thoracic Surgery (Cardiothoracic Vascular Surgery); PCP Family Medicine; Visit Provider Thoracic Surgery (Cardiothoracic Vascular Surgery)
PROC: (CPT 33208; principal; 2020-12-24 13:50)
DX: I49.5 Sick sinus syndrome (principal); I48.0 Paroxysmal atrial fibrillation; I10 Essential (primary) hypertension; I47.1 Supraventricular tachycardia; E87.6 Hypokalemia; G47.33 Obstructive sleep apnea (adult) (pediatric); Z79.01 Long term (current) use of anticoagulants
CPT/HCPCS: 33208; 71045; 76000; 80048; 81001; 81003; 85025; C1779; C1786; G0378; J1200; J1956; J2270; J2405; J2704; J3010; J3370; J7030; J8498

== ENCOUNTER → 2021-02-14 13:40 | Outpatient (BNVA) | payer MEDICARE, SELFPAY | PROVIDERS: PCP Family Medicine; Visit Provider Internal Medicine | DX: E03.9 Hypothyroidism, unspecified (principal); I48.91 Unspecified atrial fibrillation; G47.33 Obstructive sleep apnea (adult) (pediatric); I47.1 Supraventricular tachycardia; I10 Essential (primary) hypertension | CPT/HCPCS: 80048; 83880 ==

== ENCOUNTER 2021-03-11 15:04 | Outpatient (CLI) | payer MEDICARE, SELFPAY ==
--- NOTE | 2021-03-11 15:13 | MM_ITS ---
WS: [id number] BILATERAL DIGITAL SCREENING MAMMOGRAPHY WITH CAD CLINICAL INFORMATION: SCREENING HISTORY: Screening mammogram. No current complaints. COMPARISON: January 31, 2020 TECHNIQUE: Bilateral CC and MLO views. FINDINGS: Scattered fibroglandular densities bilaterally. Punctate calcifications bilateral breasts. No suspici ous focal mass, asymmetry, calcifications, or architectural distortion. No evidence of malignancy. MM/[place] [id number] IMPRESSION: BI-RADS: 2-Benign FOLLOW UP: 1 Year Follow-up Recommend return to annual screening mammography.
== END 2021-03-11 15:05 | disposition home or self-care (01) ==
LOC: RAD 15:11
PROVIDERS: PCP Family Medicine; Visit Provider Family Medicine
DX: Z12.31 Encounter for screening mammogram for malignant neoplasm of breast (principal)
CPT/HCPCS: 77067

== ENCOUNTER → 2021-04-19 10:01 | Outpatient (BNVA) | payer MEDICARE, SELFPAY | PROVIDERS: PCP Family Medicine; Visit Provider Internal Medicine | DX: I48.0 Paroxysmal atrial fibrillation (principal); Z79.01 Long term (current) use of anticoagulants; E03.9 Hypothyroidism, unspecified; G47.33 Obstructive sleep apnea (adult) (pediatric); I47.1 Supraventricular tachycardia; I10 Essential (primary) hypertension | CPT/HCPCS: 99214 ==

== ENCOUNTER → 2021-08-02 09:54 | Outpatient (BNVA) | payer MEDICARE, SELFPAY | PROVIDERS: PCP Family Medicine; Visit Provider Internal Medicine | DX: Z45.010 Encounter for checking and testing of cardiac pacemaker pulse generator [battery] (principal) | CPT/HCPCS: 93280 ==

== ENCOUNTER → 2021-08-12 09:58 | Outpatient (BNVA) | payer MEDICARE, SELFPAY | PROVIDERS: PCP Family Medicine; Visit Provider Family Medicine | DX: R19.7 Diarrhea, unspecified (principal) | CPT/HCPCS: 87493; 87506 ==

== ENCOUNTER 2021-09-12 07:32 | Outpatient (CLI) | payer MEDICARE, SELFPAY ==
--- NOTE | 2021-09-12 07:56 | CT_ITS ---
WS: [id number] CT ABDOMEN AND PELVIS WITH CONTRAST HISTORY: LLQ ABDOMINAL PAIN TECHNIQUE: Imaging performed of the abdomen and pelvis with IV contrast. Single phase imaging of the abdomen. Coronal and sagittal reformats are submitted. All CT scans at [facility] use at [address] one of these dose optimization techniques: automated exposure control; mA and/or kV adjustment per patient size (includes targeted exams where dose is matched to clinical indication); or iterative re construction. IV CONTRAST: Omnipaque 350; 95 mL IV. Oral contrast: Yes. DLP: 985.81 mGy.cm COMPARISON: 06/04/2017 Lower thorax: Mild interstitial thickening and pleural thickening at the lung bases is chronic. No pu lmonary mass. Mild enlargement of the LEFT heart chambers. Stomach is in the lower thorax. Suspect th ere has been a gastric pull-through procedure. Liver/biliary system: Liver is high riding into the RIGHT lower thorax due to elevated diaphragm. Mil dly heterogeneous liver. Mild central bile duct dilatation. The common bile duct measures 10 mm which is slightly increased since the prior study. Gallbladder: Status post cholecystectomy. Pancreas: Pancreatic duct measures 2 mm throughout its course. Pancreatic duct is slightly more promi nent as compared to prior studies. Very minimal increased soft tissue and fullness involving the ampu lla of Vater. There is very mild fullness noted involving the distal duct near the duodenum. This are a needs to be further evaluated for possible mass. Spleen: Normal size spleen. No mass or infarct. Adrenal glands: Normal. Right kidney: No hydronephrosis. 12 mm lower pole cyst. Left kidney: Cortical hypodensities are too small to characterize. No obstruction. Aorta: Mild atherosclerosis with no aneurysm. Lymphadenopathy: None. Free fluid: None. GI tract: Esophageal pull-through. No obstruction of the GI tract. Mild fullness is noted in the michael on of the duodenal C-loop for which further imaging will be recommended. No obstruction. Abdominal wall: Unremarkable abdominal wall. No hernia. Pelvis: No free fluid or adenopathy. Normal bladder. Prior hysterectomy. Bones: Thoracolumbar degenerative scoliosis. CT/CT abdomen pelvis w con* [id number] IMPRESSION: 1. Stable esophageal pull-through. 2. There is new mild intrahepatic duct, common bile duct and pancreatic duct d ilatation. This is only minimal but needs to be further evaluated. There is als o very mild fullness and a few scattered areas of decreased attenuation at the ampulla of Vater extending into the duodenal C-loop. Duodenum needs to be evalu ated for possible mass. Endoscopy with evaluation of the duodenum or MRCP to ev aluate the ampulla of Vater. 3. Prior cholecystectomy. 4. No ascites or adenopathy is identified.
[2021-09-12] MEDS: barium sulfate 450 mL Oral Susp PO (09:30)
[2021-09-12 09:38] LABS: Blood Urea Nitrogen 13 mg/dL (8-23); Glomerular Filtration Rate 54.8 mL/min (90-130)
[2021-09-12] MEDS: iohexol 350 mg/mL 100 mL Btl IV (09:47)
== END 2021-09-12 07:33 | disposition home or self-care (01) ==
LOC: RAD 07:32
PROVIDERS: PCP Family Medicine; Visit Provider Family Medicine
DX: R10.32 Left lower quadrant pain (principal); Z90.49 Acquired absence of other specified parts of digestive tract
CPT/HCPCS: 74177; 82565; 84520

== ENCOUNTER → 2021-10-04 10:27 | Outpatient (BNVA) | payer MEDICARE, SELFPAY | PROVIDERS: PCP Family Medicine; Visit Provider Internal Medicine | DX: Z45.010 Encounter for checking and testing of cardiac pacemaker pulse generator [battery] (principal) | CPT/HCPCS: 93280 ==

== ENCOUNTER → 2021-11-08 08:15 | Outpatient (BNVA) | payer MEDICARE, SELFPAY | PROVIDERS: PCP Family Medicine; Visit Provider Nurse Practitioner Family | DX: I48.91 Unspecified atrial fibrillation (principal); Z79.01 Long term (current) use of anticoagulants; I48.92 Unspecified atrial flutter; I10 Essential (primary) hypertension; Z95.0 Presence of cardiac pacemaker | CPT/HCPCS: 99214 ==

== ENCOUNTER 2022-03-08 11:36 | Emergency (ER) | payer MEDICARE, OTHER, SELFPAY ==
[2022-03-08 11:49] VITALS: BP 138/86; PULSE 86; RESP 18; TEMP 36.7; O2SAT 96
--- NOTE | 2022-03-08 11:56 | ECG_ITS ---
[facility] Test Date: 2022-03-08 Pat Name: Ave López Department: Room: Gender: Female Edger Automatic: : [id number] Requested By: Giuseppe Pompa Order Number: [id number] Benjie MD: Grace Jackson M.D. 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 [id number]
[2022-03-08 12:45] LABS: Basophils # 0.1 10^3/uL (0.0-0.1); Basophils % 1.3 %; Eosinophils # 0.2 10^3/uL (0.0-0.8); Eosinophils % 3.2 %; Hemoglobin 15.1 g/dL (11.5-15.3); Lymphocytes # 1.9 10^3/uL (0.8-4.8); Lymphocytes % 25.3 %; Mean Corpuscular HGB Conc 32.1 g/dL (30.0-36.0); Mean Corpuscular Volume 90.2 fl (81-99); Mean Platelet Volume 9.8 fL (7.4-10.4); Monocytes # 0.6 10^3/uL (0.2-0.9); Monocytes % 7.6 %; Neutrophils # 4.65 10^3/uL (1.8-7.7); Neutrophils % 62.5 %; Nucleated Red Blood Cells % 0 %; Platelet Count 268 10^3/cmm (130-400); Red Blood Count 5.21 10^6/uL (4.1-5.3); Red Cell Distribution Width 13.7 % (12.1-15.1); White Blood Count 7.5 10^3/uL (4.0-10.0)
[2022-03-08 13:06] LABS: Alanine Aminotransferase 24 U/L (0-33); Albumin Level 4.4 g/dL (3.5-5.2); Alkaline Phosphatase 136 U/L (35-105); Anion Gap 13.5 (5-19); Aspartate Amino Transferase 25 U/L (0-32); Blood Urea Nitrogen 17 mg/dL (8-23); Calcium 8.9 mg/dL (8.5-10.5); Carbon Dioxide 22 mmol/L (22-29); Chloride 106 mmol/L (98-107); Creatinine Clr Calc Pharmacy 56.8023; Globulin 2.5 g/dL (1.3-4.6); Glomerular Filtration Rate 82.7 mL/min (90-130); Glucose 92 mg/dL (65-115); Lipase 70 U/L (13-60); Osmolality Calculated 287 mOsm/kg (285-295); Potassium 3.5 mmol/L (3.5-5.1); Sodium 138 mmol/L (136-145); Total Bilirubin 0.7 mg/dL (0.15-1.2); Total Protein 6.9 g/dL (6.6-8.7)
--- NOTE | 2022-03-08 14:21 | ED_ITS ---
HPI - Abdominal Pain General: Chief Complaint: Abdominal Pain Stated Complaint: Sent from urgent care, stomach pain and more Time Seen by Provider: 03/08/22 14:21 History of Present Illness: Ms. López is a 71-year-old lady with history of hypertension, atrial fibrillation, GERD, history of multiple abdominal surgeries including large bowel resection presenting to the emergency department due to abdominal pain. She reports onset of symptoms approximately 1 week ago and since that time has had worsening pain. Describes burning epigastric pain as well as sharp left flank pain. Initially it was intermittent however now has become more constant. Has associated nausea and intermittent constipation and watery stools. Worse with eating and movement. Was seen in clinic and sent to the emergency department for further evaluation. No other specific changes in health, exacerbating, or alleviating factors identified. Onset (ago): day(s) Pain Consistency: constant Location: Epigastric and L flank Severity: severe Quality: stabbing and burning Radiation: none Migration to: no migration Exacerbating factors: movement Relieving factors: nothing Associated Symptoms: Reports change in stool character, diarrhea and nausea Review of Systems General: Reports: 10 or more systems reviewed and unremarkable except in HPI and below GI: Reports: nausea, diarrhea and change in stool character PFSH ED PFSH: Medical History Atrial fibrillation Paroxysmal atrial fibrillation with bradycardia during medical management Atrial fibrillation with RVR Bradycardia Chest pain Chronic hypokalemia GERD (gastroesophageal reflux disease) Hypertension Obstructive sleep apnea Pacemaker Recurrent chest pain SVT (supraventricular tachycardia) Surgical History H/O esophageal hernia repair H/O: hysterectomy Family History Other CAD (coronary artery disease) Cancer Social History Smoking and tobacco status: never smoked Alcohol intake: never Physical Exam Const: COMMON NORMALS: alert GENERAL APPEARANCE: cooperative and well developed HENMT: COMMON NORMALS: normocephalic and atraumatic HEAD & SCALP: normocephalic and atraumatic Eye: COMMON NORMALS: conjunctivae normal CONJUNCTIVA: Yes conjunctivae normal SCLERA: sclerae normal Neck/C-Spine: COMMON NORMALS: supple GENERAL: Yes trachea midline Resp: COMMON NORMALS: clear to auscultation bilaterally EFFORT & INSPECTION: Yes able to speak in complete sentences AUSCULTATION: clear to auscultation bilaterally Cardio: COMMON NORMALS: regular rate and regular rhythm RATE: regular rate RHYTHM: regular rhythm GI: COMMON NORMALS: Soft to palpation PALPATION: Yes Soft to palpation, Yes Tenderness to palpation present (GI), Yes Guarding due to palpation present (GI) and No Rigid due to palpation Extremity: GENERAL: Yes normal exam except as noted and No edema Neuro: COMMON NORMALS: moves all extremities SENSORIUM/ORIENTATION: Yes alert and No Orientation impaired Psych: COMMON NORMALS: mental status grossly normal and Normal thought process present THOUGHT PROCESS: Normal thought process present Course Vital Signs: Vital signs: Vital Signs Temperature 98.1 F 03/08/22 11:49 Pulse Rate 60 03/08/22 14:47 Respiratory Rate 16 03/08/22 16:24 Blood Pressure 135/72 03/08/22 16:24 Pulse Oximetry 96 03/08/22 16:24 Oxygen Delivery Me thod 03/08/22 16:24 MDM - Abdominal Pain Medical Decision Making 71-year-old lady presenting with abdominal pain. Exam as above. Patient is nontoxic appearance and there is no evidence of acute surgical abdomen. EKG notable for atrially paced rhythm with first-degree block, nonspecific ST segment abnormalities, incomplete right bundle branch block, normal axis, no STEMI. Labs with unremarkable hematologic panel similar to prior. Metabolic panel with mild improvement given to prior and essential abnormality. Lipase is mildly elevated. No evidence of UTI. CT abdomen pelvis with gastric pull-through with mild increased visualization of the contents in the intrathoracic stomach, there is also increased kidney lesion which was discussed with patient including need for follow-up. Biliary dilatation appears similar and physically normal. No evidence of other acute pathology explain symptoms. Overall similar to prior. Patient feels improved with antiemetic and analgesia. Message of patient symptoms is unspecified abdominal pain with mild pancreatitis and likely delayed gastric transit. The results of ED evaluation were discussed with the patient including possible disposition options for pancreatitis. The patient feels markedly improved and is able to tolerate p.o. intake. She is comfortable with trial of symptom control at home. I discussed prescriptions and/or symptomatic cares (if applicable) including appropriate and responsible use, followup plan, and return precautions. The patient verbalized understanding and felt safe for discharge. Medical Records I reviewed the patient's medical records. Lab Data I reviewed the patient's lab results. 03/08/22 12:35 03/08/22 12:35 Labs/Radiology: Radiology Impressions Abdomen/Pelvis CT 03/08/22 15:18 IMPRESSION: 1. Grossly stable esophagectomy with gastric pull-through with possible increased fecalization of contents in the intrathoracic portion of the stomach. 2. Slightly increased size of minimally exophytic 1.5 cm low-density lesion lower pole right kidney measuring 30 Hounsfield units. Complex cyst versus neoplasm. Axial series 4, image 41, coronal series 6, image 28. Correlation with nonemergent multiphasic CT abdomen with noncontrast, arterial phase contrast, venous phase contrast and delayed phase imaging may be helpful. 3. Continued dilatation of the intra-and extrahepatic biliary tree which can be normal following cholecystectomy. 4. Stable sigmoid anastomosis most consistent with previous partial resection. Laboratory Results WBC 7.5 10^3/uL (4.0-10.0) 03/08/22 12:35 RBC 5.21 10^6/uL (4.1-5.3) 03/08/22 12:35 Hgb 15.1 g/dL (11.5-15.3) 03/08/22 12:35 Hct 47.0 % (37.0-47.0) 03/08/22 12:35 MCV 90.2 fl (81-99) 03/08/22 12:35 MCH 29.0 pg (28.0-34.0) 03/08/22 12:35 MCHC 32.1 g/dL (30.0-36.0) 03/08/22 12:35 RDW 13.7 % (12.1-15.1) 03/08/22 12:35 Plt Count 268 10^3/cmm (130-400) 03/08/22 12:35 MPV 9.8 fL (7.4-10.4) 03/08/22 12:35 Neut % (Auto) 62.5 % 03/08/22 12:35 Lymph % (Auto) 25.3 % 03/08/22 12:35 Ralls % (Auto) 7.6 % 03/08/22 12:35 Eos % (Auto) 3.2 % 03/08/22 12:35 Baso % (Auto) 1.3 % 03/08/22 12:35 Neut # (Auto) 4.65 10^3/uL (1.8-7.7) 03/08/22 12:35 Lymph # (Auto) 1.9 10^3/uL (0.8-4.8) 03/08/22 12:35 Ralls # (Auto) 0.6 10^3/uL (0.2-0.9) 03/08/22 12:35 Eos # (Auto) 0.2 10^3/uL (0.0-0.8) 03/08/22 12:35 Baso # (Auto) 0.1 10^3/uL (0.0-0.1) 03/08/22 12:35 Nucleated RBC % (auto) 0 % 03/08/22 12:35 Nucleated RBCs # 0.0 /100WBC 03/08/22 12:35 Sodium 138 mmol/L (136-145) 03/08/22 12:35 Potassium 3.5 mmol/L (3.5-5.1) 03/08/22 12:35 Chloride 106 mmol/L (98-107) 03/08/22 12:35 Carbon Dioxide 22 mmol/L (22-29) 03/08/22 12:35 Anion Gap 13.5 (5-19) 03/08/22 12:35 BUN 17 mg/dL (8-23) 03/08/22 12:35 Creatinine 0.7 mg/dL (0.5-0.9) 03/08/22 12:35 GFR Calculation 82.7 mL/min (90-130) L 03/08/22 12:35 Glucose 92 mg/dL (65-115) 03/08/22 12:35 Calculated Osmolality 287 mOsm/kg (285-295) 03/08/22 12:35 Calcium 8.9 mg/dL (8.5-10.5) 03/08/22 12:35 Total Bilirubin 0.7 mg/dL (0.15-1.2) 03/08/22 12:35 AST 25 U/L (0-32) 03/08/22 12:35 ALT 24 U/L (0-33) 03/08/22 12:35 Alkaline Phosphatase 136 U/L (35-105) H 03/08/22 12:35 Total Protein 6.9 g/dL (6.6-8.7) 03/08/22 12:35 Albumin 4.4 g/dL (3.5-5.2) 03/08/22 12:35 Globulin 2.5 g/dL (1.3-4.6) 03/08/22 12:35 Lipase 70 U/L (13-60) H 03/08/22 12:35 Urine Color Straw (Yellow) 03/08/22 15:23 Urine Appearance Clear (CLEAR) 03/08/22 15:23 Urine pH 6 (5-7) 03/08/22 15:23 Ur Specific [place] 1.010 (1.005-1.030) 03/08/22 15:23 Urine Protein Neg (Negative) 03/08/22 15: Urine Glucose (UA) Norm (Normal) 03/08/22 15:23 Urine Ketones Negative (Negative) 03/08/22 15:23 Urine Blood Neg (Negative) 03/08/22 15:23 Urine Nitrate Negative (Negative) 03/08/22 15:23 Urine Bilirubin Neg (Negative) 03/08/22 15:23 Urine Urobilinogen Norm mg/dL (Negative) 03/08/22 15:23 Ur Leukocyte Esterase Negative (Negative) 03/08/22 15:23 Discharge Plan Discharge Patient Disposition: Home Clinical Impression: Abdominal pain, Pancreatitis, Kidney lesion Condition: Stable Prescriptions: New ondansetron 4 mg tablet,disintegrating 4 mg PO Q8H PRN (Reason: nausea and vomiting) Qty: 15 0RF oxycodone 5 mg tablet 5 mg PO Q4H PRN (Reason: pain) Qty: 10 0RF No Action timolol 0.5 % drops 1 drp ophthalmic (eye) DAILY fluticasone propionate 0.05 % cream 1 applic topical DAILY PRN (Reason: Allergic Symptoms) brimonidine 0.2 % drops 1 drp ophthalmic (eye) BID potassium chloride 10 mEq capsule, extended release 10 meq PO DAILY cefpodoxime 200 mg tablet 200 mg PO BID Qty: 14 0RF Rx Instructions: must administer with a meal/food metoprolol tartrate 100 mg tablet 100 mg PO BID Qty: 60 3RF ferrous sulfate 325 mg (65 mg iron) tablet 325 mg PO DAILY Eliquis 5 mg tablet 5 mg PO BID Qty: 180 3RF amiodarone 400 mg tablet 400 mg PO DAILY Qty: 90 3RF sucralfate 1 gram tablet 1 g PO QID 90 Days Qty: 360 3RF cefdinir 300 mg capsule 300 mg PO BID Qty: 20 0RF furosemide [Lasix] 20 mg tablet 20 mg PO DIRECTED Qty: 90 3RF Rx Instructions: Take 20mg twice a day for 2 weeks, then take 20mg daily levothyroxine 25 mcg tablet See Rx Instructions .ROUTE .COMPLEX Qty: 90 3RF Dose Instruction: TAKE 1 TABLET EVERY MORNING 30 MINUTES PRIOR TO EATING WITH WATER ONLY Rx Instructions: TAKE 1 TABLET EVERY MORNING 30 MINUTES PRIOR TO EATING WITH WATER ONLY diltiazem HCl 120 mg capsule,extended release 24 hr 120 mg PO DAILY Qty: 90 0RF latanoprost 0.005 % Drops 1 drp OPHTHALMIC (EYE) DAILY Rx Instructions: USE IN THE EVENING pantoprazole 40 mg tablet,delayed release (DR/EC) 40 mg PO BID Discharge Orders: Discharge ED (Routine); Ordered 03/08/22 Ordered By: Giuseppe Pompa Referrals: Dagoberto Wright MD [Primary Care Provider] - Discharge Diet: Advance as tolerated and Clear Liquid Discharge Activity: Increase activity as tolerated Patient Instructions: Pancreatitis (ED), Abdominal Pain (ED), Opioid Safety Activity Restrictions/Additional Instructions: Thank you for visiting the emergency department. You were seen and evaluated f or abdominal and side pain. The exact cause of your symptoms is unclear though may be related to mild pancreatitis. I will prescribe antinausea medication and pain medication. I would expect improvement in the next few days. Given duration of diarrhea I will also prescribe antibiotics. As discussed you do have an incidental finding on CT which requires follow-up which can be arranged by your primary care provider. Return to the emergency department for uncontrolled symptoms or anything else that you are concerned about a feel needs emergency department evaluation. Slightly increased size of minimally exophytic 1.5 cm low-density lesion lower pole right kidney.?Nonemergent multiphasic CT abdomen with noncontrast, arterial phase contrast, venous phase contrast and delayed phase imaging is recommended. Coding Level of Care Code ED Toll Testboard Worker for Tino Fwd Exam Comprehensive
[2022-03-08] MEDS: morphine 4 mg/mL SDV 1 mL IVP (14:45)
[2022-03-08] MEDS: ondansetron 2 mg/ML SDV 2 mL 4 MG IVP (14:45)
[2022-03-08 14:47] VITALS: BP 140/81; PULSE 60; RESP 14; O2SAT 98
--- NOTE | 2022-03-08 15:18 | CTR_ITS ---
PROCEDURE INFORMATION: Exam: CT Abdomen And Pelvis With Contrast Exam date and time: 03/08/2022 4:53 PM Age: 71 years old Clinical indication: Abdominal pain; Generalized; Prior surgery; Additional info: Generalized abd pain, worse L flank and epigastric, n/d TECHNIQUE: Imaging protocol: Computed tomography of the abdomen and pelvis with contrast. Radiation optimization: All CT scans at this facility use at least one of these dose optimization techniques: automated exposure control; mA and/or kV adjustment per patient size (includes targeted exams where dose is matched to clinical indication); or iterative reconstruction. Contrast material: OMNI 350; Contrast volume: 100 ml; Contrast route: INTRAVENOUS (IV); COMPARISON: CT abdomen pelvis w con* [id number] 09/12/2021 9:41 AM RADIATION DOSE METRICS: Total DLP (mGy-cm): 463.32 FINDINGS: Liver: Normal. No mass. Gallbladder and bile ducts: Continued dilatation of the intra-and extrahepatic biliary tree which can be normal following cholecystectomy. Stable cholecystectomy. Pancreas: Normal. No ductal dilation. Spleen: Normal. No splenomegaly. Adrenal glands: Normal. No mass. Kidneys and ureters: Stable simple right renal cyst measuring > 1.0 cm. Slightly increased size of minimally exophytic 1.5 cm low-density lesion lower pole right kidney measuring 30 Hounsfield units. Complex cyst versus neoplasm. Axial series 4, image 41, coronal series 6, image 28. Correlation with nonemergent multiphasic CT abdomen with noncontrast, arterial phase contrast, venous phase contrast and delayed phase imaging may be helpful. Stomach and bowel: Grossly stable esophagectomy with gastric pull-through with possible increased fecalization of contents in the intrathoracic portion of the stomach. Stable sigmoid anastomosis most consistent with previous partial resection. Appendix: No evidence of appendicitis. Intraperitoneal space: Unremarkable. No free air. No significant fluid collection. Vasculature: Unremarkable. No abdominal aortic aneurysm. Lymph nodes: Unremarkable. No enlarged lymph nodes. Urinary bladder: Unremarkable as visualized. Reproductive: Stable hysterectomy. Bones/joints: Unremarkable. No acute fracture. Soft tissues: Unremarkable. CT/CT abdomen pelvis w con* [id number] IMPRESSION: 1. Grossly stable esophagectomy with gastric pull-through with possible increased fecalization of contents in the intrathoracic portion of the stomach. 2. Slightly increased size of minimally exophytic 1.5 cm low-density lesion lower pole right kidney measuring 30 Hounsfield units. Complex cyst versus neoplasm. Axial series 4, image 41, coronal series 6, image 28. Correlation with nonemergent multiphasic CT abdomen with noncontrast, arterial phase contrast, venous phase contrast and delayed phase imaging may be helpful. 3. Continued dilatation of the intra-and extrahepatic biliary tree which can be normal following cholecystectomy. 4. Stable sigmoid anastomosis most consistent with previous partial resection.
[2022-03-08 15:32] LABS: Add Urine Microscopic? NO; Charge for UA Resulting for Rev
[2022-03-08 15:52] LABS: Urine Appearance Clear (CLEAR); Urine Color Straw (Yellow); pH Urine 6 (5-7)
[2022-03-08 15:53] LABS: Bilirubin Urine Neg (Negative); Blood Urine Neg (Negative); Glucose Urine UA Norm (Normal); Ketones Urine Negative (Negative); Leukocyte Esterase Urine Negative (Negative); Nitrate Urine Negative (Negative); Protein Urine Neg (Negative); Urobilinogen Urine Norm (Negative)
[2022-03-08 16:24] VITALS: BP 135/72; RESP 16; O2SAT 96
[2022-03-08] MEDS: iohexol 350 mg/mL 500 mL Btl (per mL) IV (16:57)
== END 2022-03-08 19:09 | disposition home or self-care (01) ==
PROVIDERS: Emergency Provider Emergency Medicine; PCP Family Medicine
DX: K85.90 Acute pancreatitis without necrosis or infection, unspecified (principal); N28.9 Disorder of kidney and ureter, unspecified; Z79.01 Long term (current) use of anticoagulants; I10 Essential (primary) hypertension; Z95.0 Presence of cardiac pacemaker
CPT/HCPCS: 36415; 74177; 80053; 81003; 83690; 85025; 93005; 96374; 96375; 99285; J2270; J2405; Q9967

== ENCOUNTER → 2022-03-28 10:59 | Outpatient (BNVA) | payer MEDICARE, OTHER, SELFPAY | PROVIDERS: PCP Family Medicine; Visit Provider Internal Medicine Cardiovascular Disease | DX: I48.91 Unspecified atrial fibrillation (principal); I10 Essential (primary) hypertension; Z95.0 Presence of cardiac pacemaker; I48.92 Unspecified atrial flutter; Z79.01 Long term (current) use of anticoagulants | CPT/HCPCS: 99214 ==

== ENCOUNTER 2022-04-15 09:00 | Outpatient (CLI) | payer MEDICARE, OTHER, SELFPAY ==
--- NOTE | 2022-04-15 09:10 | MM_ITS ---
WS: [id number] Bilateral screening 3D tomosynthesis digital mammogram, 04/15/2022 Clinical Data: SCREENING Comparison: 03/11/2021, 01/31/2020, 11/19/2018, 10/30/2016, 09/27/2015, 05/06/2005. Findings: The breast parenchymal pattern shows fibroglandular tissue. No spiculated masses or clustered calcifi cations are seen. There are no secondary signs of carcinoma. There is a pacemaker generator in the le ft axilla. MM/[place] [id number] Impression: 1. Negative bilateral mammogram unchanged. 2. Recommend annual screening mammograms. BIRADS: 1-Negative FOLLOW UP: 1 Year Follow-up The CAD billing checker was used.
== END 2022-04-15 09:01 | disposition home or self-care (01) ==
PROVIDERS: PCP Family Medicine; Visit Provider Family Medicine
DX: Z12.31 Encounter for screening mammogram for malignant neoplasm of breast (principal)
CPT/HCPCS: 77063; 77067

== ENCOUNTER → 2022-04-30 15:47 | Outpatient (BNVA) | payer MEDICARE, OTHER, SELFPAY | PROVIDERS: PCP Family Medicine; Visit Provider Internal Medicine | DX: Z45.010 Encounter for checking and testing of cardiac pacemaker pulse generator [battery] (principal) | CPT/HCPCS: 93296 ==

== ENCOUNTER → 2022-06-23 09:03 | Outpatient (BNVA) | payer MEDICARE, OTHER, SELFPAY | PROVIDERS: PCP Family Medicine; Visit Provider Family Medicine | DX: R53.81 Other malaise (principal); R53.83 Other fatigue; E55.9 Vitamin D deficiency, unspecified; E53.8 Deficiency of other specified B group vitamins; E03.9 Hypothyroidism, unspecified | CPT/HCPCS: 80053; 82306; 82607; 83550; 84425; 84439; 84443; 84630; 85025 ==

== ENCOUNTER → 2022-10-17 10:30 | Outpatient (BNVA) | payer MEDICARE, OTHER, SELFPAY | PROVIDERS: PCP Family Medicine; Visit Provider Internal Medicine | DX: I48.91 Unspecified atrial fibrillation (principal); I48.92 Unspecified atrial flutter; I10 Essential (primary) hypertension; Z95.0 Presence of cardiac pacemaker; R06.02 Shortness of breath; Z79.01 Long term (current) use of anticoagulants | CPT/HCPCS: 99214 ==

== ENCOUNTER 2022-10-28 13:03 | Outpatient (CLI) | payer MEDICARE, OTHER, SELFPAY ==
--- NOTE | 2022-10-28 13:30 | CT_ITS ---
WS: [id number] CT ABDOMEN AND PELVIS NONCONTRAST HISTORY: Right renal mass TECHNIQUE: Imaging performed through the abdomen and pelvis. Coronal and sagittal reformats are submi tted. All CT scans at [facility] use at least one of these dose optimization techniques: auto mated exposure control; mA and/or kV adjustment per patient size (includes targeted exams where dose is matched to clinical indication); or iterative reconstruction. DLP: 311.74 mGy.cm COMPARISON: None available. Lower thorax: Prior gastroesophageal pull-through. There is a large amount of retained food products and fecalization in the lower esophageal pull-through. This often indicates a longstanding partial ob struction. Normal size heart. Liver: Normal size liver. No mass or bile duct dilatation. Gallbladder: Prior cholecystectomy. Pancreas: Normal size and attenuation. Normal pancreatic duct. No pancreatitis or mass. Spleen: Normal. Adrenal glands: Normal. No mass. Right kidney: Normal size kidney. Low-attenuation 11 mm mass lower pole. No obstruction. Left kidney: Normal size kidney with no mass or hydronephrosis. Aorta: Mild atherosclerosis abdominal aorta with no aneurysm. No free fluid, intraperitoneal air or significant lymphadenopathy. GI tract: Defect within the LEFT diaphragm with herniating loop of small bowel. No obstruction. Incre ased fecal material in the distal colon. Surgical anastomosis in the sigmoid colon. No obstruction. Abdominal wall: Negative. No hernia. Pelvis: Osseous structures: Increase in the lumbar lordosis. Spinal curvature and scoliosis. IMPRESSION: 1. No significant increase in size of the 11 mm low-attenuation mass in the RIGHT kidney. Cannot com ment further on solid or cystic component without IV contrast. 2. Esophageal pull-through with fecalization which can be seen with longest standing chronic obstruc tion. There is an additional defect within the LEFT diaphragm with a loop of small bowel extending in to the thorax. No obstruction. 3. Anastomotic sutures in the sigmoid intact with no obstruction. Moderate fecal retention in the di stal colon. 4. Prior hysterectomy, appendectomy and cholecystectomy.
[2022-10-28 14:06] LABS: Blood Urea Nitrogen 19 mg/dL (8-23)
== END 2022-10-28 13:04 | disposition home or self-care (01) ==
LOC: RAD 13:05
PROVIDERS: PCP Family Medicine; Visit Provider Family Medicine
DX: N28.89 Other specified disorders of kidney and ureter (principal)
CPT/HCPCS: 74176; 82565; 84520

== ENCOUNTER 2022-11-03 08:59 | Outpatient (CLI) | payer MEDICARE, OTHER, SELFPAY ==
--- NOTE | 2022-11-03 09:30 | USCV_ITS ---
Ave López Age: 72 Gender: F : 1950 Exam Date: 11/03/2022 09:27 Ordering Phys: Jose العلي M.D ([email or web address]) Technologist: Jazz Schwartz Exam Location: [facility] [place] Indication: SOB, faatigue BP: 124 / 70 HR: 69 Rhythm: Atrial fibrillation Technical Quality: Good MEASUREMENTS (Male / Female) Normal Values 2D ECHO LV Diastolic Diameter PLAX 2.7 cm 4.2 - 5.9 / 3.9 - 5.3 cm LV Systolic Diameter PLAX 1.4 cm IVS Diastolic Thickness 1.6 cm 0.6 - 1.0 / 0.6 - 0.9 cm IVS Systolic Thickness 1.3 cm LVPW Diastolic Thickness 1.1 cm 0.6 - 1.0 / 0.6 - 0.9 cm LVPW Systolic Thickness 1.5 cm LVOT Diameter 2.0 cm LV Ejection Fraction 2D Teich 82.5 % LA Diameter 3.6 cm LA Width 4.4 cm LA Height 4.6 cm RA Width 3.3 cm RA Height 3.7 cm Aorta at Sinotubular Diameter 2.6 cm IVC Diameter 1.2 cm M-MODE Aortic Annulus Diameter 2.8 cm LA Ao Ratio MM 1.4 MV E Point Septal Separation 0.5 cm DOPPLER AV Peak Velocity 141.0 cm/s LVOT Peak Velocity 85.0 cm/s AV Area Cont Eq vti 1.9 cm squared AV Area Cont Eq pk 2.0 cm squared MV Peak Velocity 104.0 cm/s MV Area PHT 5.0 cm squared Mitral E to A Ratio 2.8 MV E' Velocity 59.5 cm/s Mitral E to MV E' Ratio 12.7 Mitral E to LV E' Lateral Ratio 13.3 Mitral E to LV E' Septal Ratio 12.2 TR Peak Velocity 258.5 cm/s TR Peak Gradient 26.7 mmHg Right Atrial Pressure 5.0 mmHg Pulmonary Artery Systolic Pressu 31.7 mmHg PV Peak Velocity 73.0 cm/s RV Acceleration Time 0.1 s RV Ejection Time 0.3 s RV AcT/ET 0.4 FINDINGS Left Ventricle Left ventricle is normal in size. LV systolic function is normal with EF of 55 to 60%. No regional wall motion abnormalities are seen. Moderate left ventricular hypertrophy. Right Ventricle Normal in size and function Right Atrium Normal in size. Pacemaker lead is seen Left Atrium Dilated Mitral Valve Mild mitral annular calcification. Mild mitral regurgitation. Aortic Valve Structurally normal aortic valve. Mild aortic regurgitation Tricuspid Valve Mild tricuspid regurgitation. RVSP is 35 to 40 mmHg. This is consistent with mild pulmonary hypertension. Pulmonic Valve Not well-visualized Pericardium Normal Aorta Normal in size IVC Appears to be normal CONCLUSIONS LV systolic function is normal with EF of 55 to 60%. Moderate mild left ventricular hypertrophy Left atrial dilation Mild mitral regurgitation Mild aortic regurgitation Mild tricuspid regurgitation. Mild pulmonary hypertension Compared to prior echocardiogram from 2020, patient now has mild pulmonary hypertension Jose العلي MD (Electronically Signed) Final Date: 08 November 2022 21:51 S
== END 2022-11-03 09:00 | disposition home or self-care (01) ==
LOC: RAD 09:02
PROVIDERS: PCP Family Medicine; Visit Provider Internal Medicine
DX: I08.3 Combined rheumatic disorders of mitral, aortic and tricuspid valves (principal); R06.02 Shortness of breath; R07.9 Chest pain, unspecified
CPT/HCPCS: 93306

== ENCOUNTER 2022-11-13 19:02 | Observation (INO) | payer MEDICARE, OTHER, SELFPAY ==
[2022-11-13] VITALS (7 sets, daily range): BP systolic 120–154; BP diastolic 78–93; PULSE 60–73; RESP 16–18; TEMP 36.7; O2SAT 96–98; BMI 26.0
--- NOTE | 2022-11-13 19:04 | ECG_ITS ---
[facility] Test Date: 2022-11-13 Pat Name: Ave López Department: Room: Gender: Female Roller: : 1950 Requested By: Gregorio Brewre Order Number: [id number] Benjie MD: Grace Jackson M.D. Measurements Intervals [place] Rate: 64 P: 241 LA: 221 QRS: -10 QRSD: 94 T: -32 QT: 414 QTc: 429 Interpretive Statements ELECTRONIC ATRIAL PACEMAKER LOW QRS VOLTAGE IN PRECORDIAL LEADS [QRS DEFLECTION < 1.0 mV IN CHEST LEADS] INCOMPLETE RIGHT BUNDLE BRANCH BLOCK [90+ ms QRS DURATION, TERMINAL R IN V1/V2, 40+ ms S IN I/aVL/V4/V5/V6] NONSPECIFIC ST & T-WAVE ABNORMALITY ABNORMAL RHYTHM ECG Compared to ECG 03/08/2022 14:33:23 T-wave abnormality now present ST (T wave) deviation no longer present Electronically Signed On 11-14-2022 11:00:10 CDT by Grace Jackson M.D. [email or web address]
[2022-11-13 19:22] LABS: Basophils # 0.1 10^3/uL (0.0-0.1); Eosinophils # 0.1 10^3/uL (0.0-0.8); Eosinophils % 1.9 %; Hematocrit 42.2 % (36-47); Lymphocytes # 1.8 10^3/uL (0.8-4.8); Lymphocytes % 25.6 %; Mean Corpuscular HGB Conc 34.6 g/dL (30-55); Mean Corpuscular Hemoglobin 29.4 pg (27-33); Mean Corpuscular Volume 85.1 fl (85-98); Mean Platelet Volume 10.1 fL (7.4-10.4); Monocytes # 0.5 10^3/uL (0.2-0.9); Monocytes % 6.9 %; Neutrophils # 4.39 10^3/uL (1.8-7.7); Neutrophils % 64.3 %; Nucleated Red Blood Cells % 0 %; Platelet Count 230 10^3/cmm (157-399); Red Blood Count 4.96 10^6/uL (3.85-5.65); Red Cell Distribution Width 14.7 % (12.1-15.1); White Blood Count 6.83 10^3/uL (3.29-11.43)
[2022-11-13 19:44] LABS: Alanine Aminotransferase 28 U/L (0-33); Albumin Level 4.4 g/dL (3.5-5.2); Alkaline Phosphatase 86 U/L (35-105); Anion Gap 16.5 (5-19); Aspartate Amino Transferase 26 U/L (0-32); Blood Urea Nitrogen 19 mg/dL (8-23); Calcium 9.1 mg/dL (8.5-10.5); Carbon Dioxide 22 mmol/L (22-29); Chloride 108 mmol/L (98-107); Globulin 2.7 g/dL (1.3-4.6); Glucose 117 mg/dL (65-115); Magnesium 1.8 mg/dL (1.7-2.3); Osmolality Calculated 301 mOsm/kg (285-295); Sodium 144 mmol/L (136-145); Total Bilirubin 0.9 mg/dL (0.15-1.2); Total Protein 7.1 g/dL (6.6-8.7)
[2022-11-13 19:51] LABS: Potassium 2.5 mmol/L (3.5-5.1)
--- NOTE | 2022-11-13 20:54 | W.ED.RECABL ---
HPI - Recheck/Abnormal Lab/Rx General: Chief Complaint: Recheck/Abnormal Lab/Rx Stated Complaint: [place] Sent No Potassium in Blood Word Time Seen by Provider: 11/13/22 19:24 History of Present Illness: This patient is a 72-year-old white female who presents to the emergency department with low potassium. Patient evidently was at her doctor's office earlier today and had a potassium checked and she stated that it was under 2. Her physician recommended she come to the emergency department for likely admission for potassium replacement. Patient does have a history of chronic hypokalemia. She does take oral potassium. She states she has been feeling dizzy recently. No chest pain. She has chronic shortness of breath. She has had some nausea in the mornings but no vomiting. She does have constipation no diarrhea. Review of Systems General: Reports: 10 or more systems reviewed and unremarkable except in HPI and below PFSH ED PFSH: Medical History (Updated 11/13/22 @ 18:49 by Dagoberto Wright MD) Asthma Atrial fibrillation Paroxysmal atrial fibrillation with bradycardia during medical management Atrial fibrillation with RVR Chest pain Chronic hypokalemia GERD (gastroesophageal reflux disease) Glaucoma Hiatal hernia Hypertension Hypothyroidism Macular hole, right eye Obstructive sleep apnea Pacemaker Pulmonary embolism, bilateral Recurrent chest pain SVT (supraventricular tachycardia) Surgical History (Updated 11/13/22 @ 18:47 by Dagoberto Wright MD) H/O esophageal hernia repair H/O wrist surgery H/O: hysterectomy With BLO History of abdominal surgery 27 inches of intestine removed - 1994, hiatal hernia repair/adhesion breakdown that was unsuccessful with intestinal perf - [facility] - 2015, hiatal hernia/adhesiolysis/rib removal - 04/2018 - [facility] History of cholecystectomy History of eye surgery Stent placement bilateral History of permanent cardiac pacemaker placement Family History Other CAD (coronary artery disease) Cancer Social History Smoking and tobacco status: never smoked Alcohol intake: never Substance/Drug Use: never Physical Exam Const: COMMON NORMALS: no acute distress, patient oriented x3 and no limitations GENERAL APPEARANCE: cooperative and comfortable HENMT: COMMON NORMALS: normocephalic, atraumatic, Normal nasal mucous membranes and turbinates present, moist oral mucous membranes and oropharynx normal HEAD & SCALP: normal to inspection, normocephalic and atraumatic FACE & SINUS: normal facial exam NOSE: Normal nasal mucous membranes and turbinates present Eye: COMMON NORMALS: Equal, round and reactive pupils present, EOMs intact bilaterally and conjunctivae normal GENERAL EYE: appearance normal, both eyes and all related structures CONJUNCTIVA: Yes conjunctivae normal PUPIL: Yes Equal, round and reactive pupils present Neck/C-Spine: COMMON NORMALS: supple and no JVD Chest: COMMONS NORMALS: normal inspection of the chest Resp: COMMON NORMALS: normal respiratory effort and clear to auscultation bilaterally AUSCULTATION: clear to auscultation bilaterally Cardio: COMMON NORMALS: no JVD, regular rate, regular rhythm, No gallops present (Cardio), No murmurs present (Cardio) and No rub (Cardio) RATE: regular rate RHYTHM: regular rhythm GI: COMMON NORMALS: Normal to inspection, nondistended, normoactive bowel sounds present, Soft to palpation and non-tender AUSCULTATION: Yes normoactive bowel sounds PALPATION: Yes Soft to palpation : COMMON NORMALS: Yes no CVA tenderness BLADDER/KIDNEY EXAM: Yes no CVA tenderness Back/Pelvis: COMMON NORMALS: no CVA tenderness and thoracic and lumbar spine normal to inspection Extremity: COMMON NORMALS: normal to inspection Neuro: COMMON NORMALS: patient oriented x3 and CN's II-XII intact bilaterally Psych: COMMON NORMALS: mental status grossly normal, Normal thought process present and cooperative THOUGHT PROCESS: Normal thought process present Skin: COMMON NORMALS: no rashes or lesions noted, turgor normal and no jaundice GENERAL SKIN EXAM: no rashes or lesions noted and turgor normal Course Vital Signs: Vital signs: Vital Signs Temperature 98.1 F 11/13/22 19:19 Pulse Rate 61 11/13/22 20:31 Respiratory Rate 16 11/13/22 20:31 Blood Pressure 154/78 11/13/22 20:31 Pulse Oximetry 98 11/13/22 20:31 Oxygen Delivery Me thod Room Air 11/13/22 20:31 MDM - Recheck/Abnormal Lab/Rx Medical Decision Making CBC was normal. CMP reveals a potassium of 2.5. Magnesium was 1.8. EKG revealed an atrial paced rhythm. No significant T wave abnormalities. I did discuss the case with Dr. Gamez, hospitalist. Patient will need to be admitted for IV potassium replacement. She will be transferred to the floor shortly. She is stable. Lab Data 11/13/22 19:16 11/13/22 19:16 Laboratory Results WBC 6.83 10^3/uL (3.29-11.43) 11/13/22 19:16 RBC 4.96 10^6/uL (3.85-5.65) 11/13/22 19:16 Hgb 14.60 g/dL (11.27-16.99) 11/13/22 19:16 Hct 42.2 % (36-47) 11/13/22 19:16 MCV 85.1 fl (85-98) 11/13/22 19:16 MCH 29.4 pg (27-33) 11/13/22 19:16 MCHC 34.6 g/dL (30-55) 11/13/22 19:16 RDW 14.7 % (12.1-15.1) 11/13/22 19:16 Plt Count 230 10^3/cmm (157-399) 11/13/22 19:16 MPV 10.1 fL (7.4-10.4) 11/13/22 19:16 Neut % (Auto) 64.3 % 11/13/22 19:16 Lymph % (Auto) 25.6 % 11/13/22 19:16 Nuckolls % (Auto) 6.9 % 11/13/22 19:16 Eos % (Auto) 1.9 % 11/13/22 19:16 Baso % (Auto) 1.0 % 11/13/22 19:16 Neut # (Auto) 4.39 10^3/uL (1.8-7.7) 11/13/22 19:16 Lymph # (Auto) 1.8 10^3/uL (0.8-4.8) 11/13/22 19:16 Nuckolls # (Auto) 0.5 10^3/uL (0.2-0.9) 11/13/22 19:16 Eos # (Auto) 0.1 10^3/uL (0.0-0.8) 11/13/22 19:16 Baso # (Auto) 0.1 10^3/uL (0.0-0.1) 11/13/22 19:16 Nucleated RBC % (auto) 0 % 11/13/22 19:16 Nucleated RBCs # 0.0 /100WBC 11/13/22 19:16 Sodium 144 mmol/L (136-145) 11/13/22 19:16 Potassium 2.5 mmol/L (3.5-5.1) L* 11/13/22 19:16 Chloride 108 mmol/L (98-107) H 11/13/22 19:16 Carbon Dioxide 22 mmol/L (22-29) 11/13/22 19:16 Anion Gap 16.5 (5-19) 11/13/22 19:16 BUN 19 mg/dL (8-23) 11/13/22 19:16 Creatinine 1.5 mg/dL (0.5-0.9) H 11/13/22 19:16 GFR Calculation Not Reportable 11/13/22 19:16 Glucose 117 mg/dL (65-115) H 11/13/22 19:16 Calculated Osmolality 301 mOsm/kg (285-295) H 11/13/22 19:16 Calcium 9.1 mg/dL (8.5-10.5) 11/13/22 19:16 Magnesium 1.8 mg/dL (1.7-2.3) 11/13/22 19:16 Total Bilirubin 0.9 mg/dL (0.15-1.2) 11/13/22 19:16 AST 26 U/L (0-32) 11/13/22 19:16 ALT 28 U/L (0-33) 11/13/22 19:16 Alkaline Phosphatase 86 U/L (35-105) 11/13/22 19:16 Total Protein 7.1 g/dL (6.6-8.7) 11/13/22 19:16 Albumin 4.4 g/dL (3.5-5.2) 11/13/22 19:16 Globulin 2.7 g/dL (1.3-4.6) 11/13/22 19:16 No radiology studies performed this visit Discharge Plan Discharge Condition: Stable Prescriptions: No Action fluticasone propionate 0.05 % cream 1 applic topical DAILY PRN (Reason: Allergic Symptoms) potassium chloride 10 mEq capsule, extended release 10 meq PO DAILY ondansetron HCl 4 mg tablet 4 mg PO Q8H PRN (Reason: nausea and vomiting) Qty: 30 1RF Eliquis 5 mg tablet 5 mg PO BID Qty: 180 3RF amiodarone 400 mg tablet 400 mg PO DAILY Qty: 90 3RF sucralfate 1 gram tablet 1 g PO QID 90 Days Qty: 360 3RF ICaps AREDS 4,296 mcg-226 mg-90 mg capsule 1 cap PO BID pantoprazole 40 mg tablet,delayed release (DR/EC) 40 mg PO BID Qty: 180 3RF furosemide [Lasix] 20 mg tablet 20 mg PO DIRECTED Qty: 90 3RF Rx Instructions: Take 20mg twice a day for 2 weeks, then take 20mg daily levothyroxine 25 mcg tablet See Rx Instructions .ROUTE .COMPLEX Qty: 90 3RF Dose Instruction: TAKE 1 TABLET EVERY MORNING 30 MINUTES PRIOR TO EATING WITH WATER ONLY Rx Instructions: TAKE 1 TABLET EVERY MORNING 30 MINUTES PRIOR TO EATING WITH WATER ONLY diltiazem HCl 120 mg capsule,extended release 24 hr 120 mg PO DAILY Qty: 90 1RF cyanocobalamin (vitamin B-12) [Vitamin B-12] 1,000 mcg tablet 1,000 mcg PO DAILY Qty: 30 6RF cholecalciferol (vitamin D3) 50 mcg (2,000 unit) capsule 50 mcg PO DAILY Qty: 30 6RF metoprolol tartrate 100 mg tablet See Rx Instructions .ROUTE .COMPLEX Qty: 180 2RF Dose Instruction: Take 1 tablet by mouth twice daily Rx Instructions: Take 1 tablet by mouth twice daily Referrals: Dagoberto Wright MD [Primary Care Provider] - Coding Level of Care Code ED Transport Assistant for Tino Hernández
[2022-11-13] MEDS: lidocaine 1% 5 ML in potassium chloride premix 100 ML 26.25 ML IV (21:11)
--- NOTE | 2022-11-13 21:22 | PC.NURSE ---
Report called to CARLOS Rosario on Med-Surg. All questions and concerns addressed at time of report.
--- NOTE | 2022-11-13 22:16 | P.HP_ITS ---
Providers/Chief Complaint Admitting Physician: Tyree Gamez MD Primary Care Provider: Dagoberto Wright MD Chief Complaint: [place] Sent No Potassium in Blood Word History of Present Illness Ave López is a 72 year old female with a past medical history of atrial fibrillation on Eliquis, history of renal mass, recent diagnosis of left lower quadrant pain diagnosed with acute diverticulitis,, recently completed antibiotic therapy, history of pacemaker placement for sick sinus syndrome, history of colon resection for colonic polyps, history of multiple esophageal surgeries and reconstruction surgery, using part of her stomach to reconstruct her esophagus as per patient at [place], history of hypokalemia, presents to [facility] due to dizziness. Patient tells that yesterday, she was cooking, and she noticed dizziness, no vertigo, she just felt unsteady on her feet no chest pain no palpitation no shortness of breath no facial droop no slurring of words no paresthesias, but she felt weak all over, she actually burned her left wrist because of it. She had her labs drawn at primary care physician this morning and she was told to come to the emergency room due to hypokalemia, does report a chronic history of hypokalemia for which she takes potassium. She recently has been taking Carafate every 6 hours, due to continued esophageal discomfort, she is also had left lower quadrant pain for which she has been on antibiotics for diverticulitis. Due to the diarrhea, no nausea, no vomiting, but does report poor appetite, no facial droop, no slurring of her words, no paresthesias, does come planing of left lower quadrant abdominal pain which is persistent, Review of Systems Const: Denies: fever(s) Eyes: Denies: change in vision Card: Reports: pre-syncope; Denies: chest pain or palpitations Resp: Denies: dyspnea GI: Reports: abdominal pain : Denies: flank pain Musc: Denies: neck pain or back pain Neuro: Reports: dizziness; Denies: headache(s), numbness in extremities, weakness in extremities or sensory changes Medications/Allergies Home Medications Medication Instructions Recorded Confirmed Last Taken Type fluticasone propionate 0.05 % 1 applic topical DAILY PRN 11/05/20 11/13/22 12/23/20 History topical cream Allergic Symptoms potassium chloride 10 mEq 10 meq PO DAILY 01/22/21 11/13/22 Unknown History capsule,extended release amiodarone 400 mg tablet 400 mg PO DAILY #90 tabs 12/13/21 11/13/22 Unknown Rx apixaban 5 mg tablet (Eliquis) 5 mg PO BID #180 tabs 12/13/21 11/13/22 Unknown Rx sucralfate 1 gram tablet 1 g PO QID 90 days #360 tabs 12/13/21 11/13/22 Unknown Rx furosemide 20 mg tablet (Lasix) 20 mg PO DIRECTED #90 tabs 12/23/21 11/13/22 Unknown Rx levothyroxine 25 mcg tablet See Rx Instructions .Route 12/24/21 11/13/22 Unknown Rx .COMPLEX #90 tabs diltiazem HCl 120 mg capsule,24 120 mg PO DAILY #90 caps 06/17/22 11/13/22 Unknown Rx hr,extended release pantoprazole 40 mg tablet,delayed 40 mg PO BID #180 tabs 06/20/22 11/13/22 Unknown Rx release vitamins A,C,I-bfua-cssijy 4,296 1 cap PO BID 06/20/22 11/13/22 Unknown History mcg-226 mg-90 mg capsule (ICaps AREDS) cholecalciferol (vitamin D3) 50 50 mcg PO DAILY #30 caps 07/04/22 11/13/22 Unknown Rx mcg (2,000 unit) capsule cyanocobalamin (vitamin B-12) 1,000 mcg PO DAILY #30 tabs 07/04/22 11/13/22 Unknown Rx 1,000 mcg tablet (Vitamin B-12) metoprolol tartrate 100 mg tablet See Rx Instructions .Route 09/04/22 11/13/22 Unknown Rx .COMPLEX #180 tabs ondansetron HCl 4 mg tablet 4 mg PO Q8H PRN nausea and 10/13/22 11/13/22 Unknown Rx vomiting #30 tabs Allergies Allergy/AdvReac Type Severity Reaction Status Date / Time Penicillins Allergy swelling Verified 10/17/22 11:01 sulfamethoxazole Allergy itch Verified 10/17/22 11:01 [From Bactrim] trimethoprim [From Bactrim] Allergy itch Verified 10/17/22 11:01 vancomycin Allergy ADR-Vomitin Verified 10/17/22 11:01 g PFSH Acute PFSH: Medical History Asthma Atrial fibrillation Paroxysmal atrial fibrillation with bradycardia during medical management Atrial fibrillation with RVR Chest pain Chronic hypokalemia GERD (gastroesophageal reflux disease) Glaucoma Hiatal hernia Hypertension Hypothyroidism Macular hole, right eye Obstructive sleep apnea Pacemaker Pulmonary embolism, bilateral Recurrent chest pain SVT (supraventricular tachycardia) Surgical History H/O esophageal hernia repair H/O wrist surgery H/O: hysterectomy With BLO History of abdominal surgery 27 inches of intestine removed - 1994, hiatal hernia repair/adhesion breakdown that was unsuccessful with intestinal perf - Giurgius - 2015, hiatal hernia/adhesiolysis/rib removal - 04/2018 - [facility] History of cholecystectomy History of eye surgery Stent placement bilateral History of permanent cardiac pacemaker placement Family History Other CAD (coronary artery disease) Cancer Social History Smoking and tobacco status: never smoked Alcohol intake: never Substance/Drug Use: never Vitals/I&O/Wt Last Vital Signs Temp 98.1 F 11/13/22 19:19 Pulse 61 11/13/22 20:31 Resp 16 11/13/22 20:31 BP 154/78 11/13/22 20:31 Pulse Ox 98 11/13/22 20:31 O2 Del Method Room Air 11/13/22 20:31 Weight last 48 hrs Weight 62.596 kg Physical Exam Const: COMMON NORMALS: no acute distress and patient oriented x3 GENERAL APPEARANCE: cooperative, well kempt and well developed HENMT: COMMON NORMALS: normocephalic and Normal external nose present HEAD & SCALP: normocephalic FACE & SINUS: normal facial exam NOSE: Normal external nose present Eye: COMMON NORMALS: Equal, round and reactive pupils present, EOMs intact bilaterally, conjunctivae normal and no scleral icterus CONJUNCTIVA: Yes conjunctivae normal PUPIL: Yes Equal, round and reactive pupils present Neck/C-Spine: COMMON NORMALS: full ROM, no lymphadenopathy, no JVD, Thyroid normal and No carotid bruits THYROID: Thyroid normal Lymph: LYMPHATIC: no lymphadenopathy noted Chest: COMMONS NORMALS: normal inspection of the chest Resp: COMMON NORMALS: normal respiratory effort, No retractions, No use of accessory muscles and clear to auscultation bilaterally AUSCULTATION: clear to auscultation bilaterally Cardio: COMMON NORMALS: regular rate, regular rhythm, S1 normal heart sound present, S2 normal heart sound present, No murmurs present (Cardio) and Peripher al pulses 2+ throughout RATE: regular rate RHYTHM: regular rhythm HEART SOUNDS: S1 normal heart sound present and S2 normal heart sound present PERIPHERAL PULSES: Peripheral pulses 2+ throughout GI: COMMON NORMALS: Normal to inspection, nondistended, normoactive bowel sounds present, Soft to palpation and non-tender OTHER: Tender in left lower quadrant : BLADDER/KIDNEY EXAM: Yes no CVA tenderness Back/Pelvis: COMMON NORMALS: no CVA tenderness Extremity: COMMON NORMALS: normal to inspection and full ROM Neuro: COMMON NORMALS: patient oriented x3, CN's II-XII intact bilaterally, moves all extremities and no focal motor deficits Psych: COMMON NORMALS: mental status grossly normal, Normal thought process present, cooperative and speech normal APPEARANCE: Yes well kempt SPEECH: Yes normal speech THOUGHT PROCESS: Normal thought process present Skin: COMMON NORMALS: turgor normal and no jaundice GENERAL SKIN EXAM: turgor normal Data 11/13/22 19:16 11/13/22 19:16 A&P Assessment and plan (1) Dizziness: (2) Hypokalemia: (3) RULA (acute kidney injury): (4) Abdominal pain, left lower quadrant: (5) Right renal mass: (6) Hypothyroidism: (7) Atrial fibrillation/flutter: (8) Pacemaker: (9) Atrial fibrillation: Plan Hypokalemia -Likely secondary to history of gastric surgery, history of colon resection, poor oral intake, possibly Carafate? -Replace IV 80 mill equivalents -Check phosphorus, magnesium RULA -IV fluids Dizziness -Possible related hypokalemia -We will do serial troponins, serial EKGs, telemetry monitoring, TSH, UA -Interrogate pacemaker -Orthostatic vitals Atrial fibrillation continue Eliquis, continue amiodarone, continue beta-manohar Full code SCDs, Lovenox for DVT prophylaxis Attestations Medical Necessity Statement*: Patient requires hospitalization for hypokalemia, RULA, dizziness, outpatient with observation Diagnoses Dizziness R42 Hypokalemia E87.6 RULA (acute kidney injury) N17.9 Abdominal pain, left lower quadrant R10.32 Right renal mass N28.89 Hypothyroidism E03.9 Atrial fibrillation/flutter Pacemaker Z95.0 Atrial fibrillation I48.91
[2022-11-13] MEDS: pantoprazole 40 mg SDV IVP (22:17)
[2022-11-13] MEDS: sodium chloride 0.9% 1,000 ML 75 ML IV (22:17)
[2022-11-13 22:31] LABS: Phosphorus 3.1 mg/dL (2.5-4.5); Thyroid Stimulating Hormone 12.27 uIU/mL (0.27-4.20)
--- NOTE | 2022-11-13 22:40 | CTR_ITS ---
PROCEDURE INFORMATION: Exam: CT Head Without Contrast Exam date and time: 11/13/2022 11:02 PM Age: 72 years old Clinical indication: Dizziness; Additional info: Dizzyness TECHNIQUE: Imaging protocol: Computed tomography of the head without contrast. Radiation optimization: All CT scans at this facility use at least one of these dose optimization techniques: automated exposure control; mA and/or kV adjustment per patient size (includes targeted exams where dose is matched to clinical indication); or iterative reconstruction. REPORTING DATA: Count of CT and Cardiac NM exams in prior 12 months: This patient has received 2 known CTs and 0 known cardiac nuclear medicine studies in the 12 months prior to the current study. COMPARISON: CT head wo con* [id number] 10/22/2020 7:43 AM RADIATION DOSE METRICS: Total DLP (mGy-cm): 978.6 FINDINGS: Brain: Mild diffuse white matter disease likely reflecting chronic microvascular ischemic changes. Cerebral ventricles: No ventriculomegaly. Paranasal sinuses: Visualized sinuses are unremarkable. No fluid levels. Mastoid air cells: Visualized mastoid air cells are well aerated. Bones/joints: Unremarkable. No acute fracture. Soft tissues: Unremarkable. CT/CT head wo con* [id number] IMPRESSION: 1. Negative for intracranial hemorrhage or mass effect. 2. Mild diffuse white matter disease likely reflecting chronic microvascular ischemic changes.
--- NOTE | 2022-11-13 22:40 | CTR_ITS ---
PROCEDURE INFORMATION: Exam: CT Abdomen And Pelvis Without Contrast Exam date and time: 11/13/2022 11:06 PM Age: 72 years old Clinical indication: Abdominal pain; Localized; Left lower quadrant (llq); Additional info: Llq abdominal pain TECHNIQUE: Imaging protocol: Computed tomography of the abdomen and pelvis without contrast. Radiation optimization: All CT scans at this facility use at least one of these dose optimization techniques: automated exposure control; mA and/or kV adjustment per patient size (includes targeted exams where dose is matched to clinical indication); or iterative reconstruction. REPORTING DATA: Count of CT and Cardiac NM exams in prior 12 months: This patient has received 2 known CTs and 0 known cardiac nuclear medicine studies in the 12 months prior to the current study. COMPARISON: CT abdomen pelvis con [id number] 10/28/2022 2:20 PM RADIATION DOSE METRICS: Total DLP (mGy-cm): 395.36 FINDINGS: Liver: Normal. No mass. Gallbladder and bile ducts: Normal. No calcified stones. No ductal dilation. Pancreas: See Stomach and bowel finding. Spleen: Normal. No splenomegaly. Adrenal glands: Normal. No mass. Kidneys and ureters: Normal. No hydronephrosis. Stomach and bowel: Large hiatal hernia containing the entire stomach and a portion of the pancreas, duodenum and small bowel. Appendix: The appendix is not visualized but there are no secondary signs of acute appendicitis. Intraperitoneal space: Unremarkable. No free air. No significant fluid collection. Vasculature: Unremarkable. No abdominal aortic aneurysm. Lymph nodes: Unremarkable. No enlarged lymph nodes. Urinary bladder: Unremarkable as visualized. Reproductive: Unremarkable as visualized. Bones/joints: Unremarkable. No acute fracture. Soft tissues: Unremarkable. Other findings: Postsurgical changes in the left lower quadrant. CT/CT abdomen pelvis [facility] [id number] IMPRESSION: 1. No bowel obstruction or inflammatory process associated with the bowel. 2. Postsurgical changes in the left lower quadrant. No free air or significant free fluid in the abdomen or pelvis.
[2022-11-13 22:58] LABS: Troponin(5th) Baseline 15 ng/L (0-10)
--- NOTE | 2022-11-13 23:28 | ECG_ITS ---
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 Measurements Intervals [place] Rate: 65 P: 261 CO: 219 QRS: -7 QRSD: 93 T: 238 QT: 497 QTc: 517 Interpretive Statements ELECTRONIC ATRIAL PACEMAKER LOW QRS VOLTAGE IN PRECORDIAL LEADS [QRS DEFLECTION < 1.0 mV IN CHEST LEADS] INCOMPLETE RIGHT BUNDLE BRANCH BLOCK ST DEVIATION AND MODERATE T-WAVE ABNORMALITY, CONSIDER ANTEROLATERAL ISCHEMIA ST DEVIATION AND MODERATE T-WAVE ABNORMALITY, CONSIDER INFERIOR ISCHEMIA Compared to ECG 11/13/2022 19:28:07 Possible ischemia now present T-wave abnormality still present Electronically Signed On 11-14-2022 10:59:38 CDT by Grace Jackson M.D. [id number]
[2022-11-13 23:40] LABS: Free T4 Free Thyroxine 1.74 ng/dL (0.82-1.77); T3 Free 2.3 PG/ML (2.0-4.4)
[2022-11-14] VITALS: BP 120/82; PULSE 60; RESP 17; TEMP 36.6; O2SAT 97
[2022-11-14] MEDS: lidocaine 1% 5 ML in potassium chloride premix 100 ML 26.25 ML IV (01:15)
--- NOTE | 2022-11-14 03:15 | ECG_ITS ---
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 Measurements Intervals [place] Rate: 59 P: 264 SC: 231 QRS: -2 QRSD: 96 T: 264 QT: 514 QTc: 513 Interpretive Statements ELECTRONIC ATRIAL PACEMAKER LOW QRS VOLTAGE IN PRECORDIAL LEADS [QRS DEFLECTION < 1.0 mV IN CHEST LEADS] INCOMPLETE RIGHT BUNDLE BRANCH BLOCK [90+ ms QRS DURATION, TERMINAL R IN V1/V2, 40+ ms S IN I/aVL/V4/V5/V6] ST DEVIATION AND MODERATE T-WAVE ABNORMALITY, CONSIDER ANTEROLATERAL ISCHEMIA [-0.1+ mV T-WAVE IN V3-V6] ST DEVIATION AND MODERATE T-WAVE ABNORMALITY, CONSIDER INFERIOR ISCHEMIA [-0.1+ mV T-WAVE IN II/aVF] Compared to ECG 11/13/2022 23:28:02 No significant changes Electronically Signed On 11-14-2022 11:01:02 CDT by Grace Jackson M.D. [id number]
[2022-11-14 04:00] VITALS: BP 120/80; PULSE 60; RESP 18; TEMP 36.7; O2SAT 97
[2022-11-14 04:14] LABS: Add Urine Microscopic? YES; Bacteria Urine TRACE /hpf; Bilirubin Urine Neg (Negative); Blood Urine Neg (Negative); Glucose Urine UA Norm (Normal); Ketones Urine Negative (Negative); Leukocyte Esterase Urine 2+ (Negative); Nitrate Urine Negative (Negative); Protein Urine Neg (Negative); Squamous Epithelial Cell Urine 0-4 /hpf (0-5); Urine Appearance SL Hazy (CLEAR); Urine Color Light yellow (Yellow); Urobilinogen Urine Neg (Negative); pH Urine 7 (5-7)
[2022-11-14 04:15] LABS: Add Urine Culture? No
[2022-11-14 04:32] LABS: Basophils % 0.9 %; Eosinophils # 0.1 10^3/uL (0.0-0.8); Eosinophils % 2.4 %; Hematocrit 36.7 % (36-47); Lymphocytes # 1.5 10^3/uL (0.8-4.8); Lymphocytes % 32.4 %; Mean Corpuscular HGB Conc 32.4 g/dL (30-55); Mean Corpuscular Hemoglobin 28.9 pg (27-33); Mean Corpuscular Volume 89.1 fl (85-98); Mean Platelet Volume 10.6 fL (7.4-10.4); Monocytes # 0.4 10^3/uL (0.2-0.9); Monocytes % 9.2 %; Neutrophils # 2.57 10^3/uL (1.8-7.7); Neutrophils % 55.1 %; Nucleated Red Blood Cells % 0 %; Platelet Count 145 10^3/cmm (157-399); Red Blood Count 4.12 10^6/uL (3.85-5.65); Red Cell Distribution Width 14.8 % (12.1-15.1); White Blood Count 4.66 10^3/uL (3.29-11.43)
[2022-11-14 04:51] LABS: Troponin 5 6HR 14.92 ng/L (0-10)
[2022-11-14 04:56] LABS: Alanine Aminotransferase 20 U/L (0-33); Albumin Level 3.7 g/dL (3.5-5.2); Alkaline Phosphatase 76 U/L (35-105); Anion Gap 13.3 (5-19); Aspartate Amino Transferase 18 U/L (0-32); Blood Urea Nitrogen 16 mg/dL (8-23); Calcium 8.6 mg/dL (8.5-10.5); Carbon Dioxide 20 mmol/L (22-29); Chloride 114 mmol/L (98-107); Globulin 1.7 g/dL (1.3-4.6); Glucose 93 mg/dL (65-115); Magnesium 1.8 mg/dL (1.7-2.3); Osmolality Calculated 299 mOsm/kg (285-295); Potassium 3.3 mmol/L (3.5-5.1); Sodium 144 mmol/L (136-145); Total Bilirubin 0.7 mg/dL (0.15-1.2); Total Protein 5.4 g/dL (6.6-8.7)
[2022-11-14 04:58] LABS: Troponin 5 6HR Delta -0.08 ng/L (0-12)
[2022-11-14 06:04] VITALS: PULSE 60
[2022-11-14] MEDS: levothyroxine 25 mcg Tablet PO (06:20)
[2022-11-14 08:00] VITALS: BP 120/79; PULSE 58; RESP 16; TEMP 36.4; O2SAT 97
[2022-11-14] MEDS: dilTIAZem ER (24HR) 120 mg Capsule PO (08:53)
[2022-11-14] MEDS: apixaban 5 mg Tablet PO (08:53)
--- NOTE | 2022-11-14 10:03 | PC.CHAP ---
Pastoral Care Encounter/Spiritual Assessment Type of Contact [] Declined centrifugal operator visit [] Patient/Family/Request visit [] Outpatient visit [] Follow-up visit [] Physician referral [] Code/Alert [x] Routine visit [] Staff referral [] Actively dying [] Patient sleeping [x] Family support [] [] Out of room [] Palliative care [] [] Receiving care in room [] Pre-surgical visit [] Trauma [] Long length of stay [] ICU visit [] Other: Relational/Emotional Strength [x] Patient feels connected with others/family/visitors/staff [] Distress [] Loneliness/isolation [] Abandonment Spirituality of Patient [x] Person of Rosa M [x] Attends Sikhism of their Rosa M [x] Believes in Prayer [x] Reads Bible or Mu-Ism materials [] There are Spiritual issues to be addressed Cork Grinder Interventions [x] Prayer [x] Active listening [] Non-anxious presence [x] Spiritual/emotional support [] Crisis/trauma care [] Spiritual counseling [] Bereavement support [] Provided bereavement packet [] Provided Bible/devotional materials [] Provided toy/stuffed animal, coloring book to patient or family member [] Provided Communion [] Anointing/[place] [] Salvation [x] Completed spiritual assessment [] Other: Impact on Illness or Injury [] Angry [] Fearful [] Anxious [] Often cries [] Exhaustion [] Unable to work [] Unable to attend hindu [] Unable to walk/stand [] Unable to read [] Unable to drive [] Unable to eat/drink [] Unable to sleep [] Unable to be with family [] Patient intubated [] Other: Summary Time spent with patient 10 min
[2022-11-14] MEDS: metoprolol tartrate 50 mg Tablet 100 MG PO (10:07)
[2022-11-14 10:55] VITALS: BP 148/86; PULSE 62; RESP 16; O2SAT 96
--- NOTE | 2022-11-14 12:18 | P.DS_ITS ---
Discharge Providers Date of Admission: 11/13/22 20:45 Date of Discharge: November 14, 2022 Attending Provider at Admission: Tyree Gamez MD Attending Provider at Discharge: Joaquín Contreras DO Consults: None Primary Care Provider: Dagoberto Wright MD Diagnoses at Discharge Discharge Diagnosis (1) Dizziness: Status: Acute (2) Hypokalemia: Status: Resolved (3) RULA (acute kidney injury): Status: Acute (4) Abdominal pain, left lower quadrant: Status: Chronic (5) Right renal mass: Details from hospital stay: Last CT on 11/13/2022 has no mention of renal mass. No further CT and definitely no contrast at this time to acute kidney injury with a current creatinine of 1.2. Creatinine has been elevated since 10/28/2022. The level was 2.0. It was 1.5 yesterday and 1.2 today after fluids. Status: Acute (6) Hypothyroidism: Status: Chronic (7) Atrial fibrillation/flutter: Status: Chronic (8) Pacemaker: Status: Chronic (9) Atrial fibrillation: Status: Chronic Permanent problem details: Paroxysmal atrial fibrillation with bradycardia during medical management Reason for Visit Reason for Visit: [place] Sent No Potassium in Blood Word Brief History: Patient was having left lower quadrant abdominal pain and feeling dizzy. She presented to Dr. Wright's office. Laboratory studies were obtained and she was found to have a low potassium of 2.5. She was sent to the hospital for admission. Hospital Course Hospital Course Patient was started on IV fluids and given a total of 80 mEq of potassium. She feels much better she is not dizzy upon ambulation. Her abdominal pain is minimal. To me that she is quite constipated and is about to start a bowel regimen of stool softeners in the morning and evening plus increased fiber. Recommend MiraLAX or a substitute similar to that once or twice a day until she starts having regular bowel movements. Since the patient reports she takes Lasix 20 mg daily I rewrote her prescription so we will review that. Prior instructions were as directed. Also wrote a new prescription for KL OR?CON 10 mEq to take 4 daily. These tabl ets are smaller and should be easier for her to digest. Take 2 in the morning and 2 in the afternoon if that is preferred. In recommend BMP on Thursday and ideally should be able to have a BMP drawn w henever she does not feel well due to her history of hypokalemia and now needing hospitalization. I would recommend holding off on further CAT scans for kidney mass . Yesterday's CT did not report any abnormality. It is likely it is a cyst. Please note, her kidney function has been slightly elevated from since October 28, 2022. It is improved from then and yesterday and she is discharged with a serum creatinine of 1.2 Physical Exam Narrative: Older white female well-nourished and well-hydrated. No acute distress at time of examination Heart: Regular rhythm with regular ectopy every third or fourth beat. Lungs: Diminished breath sounds without wheezes rales or rhonchi Abdomen: Flat soft nontender nondistended positive bowel sounds Extremities: No clubbing cyanosis or edema Discharge Data Studies Completed and Pending Completed Studies During Hospitalization Category Date Time Status CT abdomen pelvis wo con [id number] Routine Cat Scan 11/13/22 22:[address] head wo con* [id number] Routine Cat Scan 11/13/22 22:40 Completed Pending at discharge Category Date Time Status Complete Blood Count w/Auto AM LABS Lab 11/15/22 04:00 Ordered Complete Blood Count w/Auto AM LABS Lab 11/16/22 04:00 Ordered Comprehensive Metabolic Panel AM LABS Lab 11/15/22 04:00 Ordered Comprehensive Metabolic Panel AM LABS Lab 11/16/22 04:00 Ordered Magnesium AM LABS Lab 11/15/22 04:00 Ordered Magnesium AM LABS Lab 11/16/22 04:00 Ordered Phosphorus AM LABS Lab 11/15/22 04:00 Ordered Phosphorus AM LABS Lab 11/16/22 04:00 Ordered Radiology Impressions Abdomen/Pelvis CT 11/13/22 22:40 IMPRESSION: 1. No bowel obstruction or inflammatory process associated with the bowel. 2. Postsurgical changes in the left lower quadrant. No free air or significant free fluid in the abdomen or pelvis. Head CT 11/13/22 22:40 IMPRESSION: 1. Negative for intracranial hemorrhage or mass effect. 2. Mild diffuse white matter disease likely reflecting chronic microvascular ischemic changes. Laboratory Results WBC 4.66 10^3/uL (3.29-11.43) 11/14/22 04:11 RBC 4.12 10^6/uL (3.85-5.65) 11/14/22 04:11 Hgb 11.90 g/dL (11.27-16.99) 11/14/22 04:11 Hct 36.7 % (36-47) 11/14/22 04:11 MCV 89.1 fl (85-98) 11/14/22 04:11 MCH 28.9 pg (27-33) 11/14/22 04:11 MCHC 32.4 g/dL (30-55) D 11/14/22 04:11 RDW 14.8 % (12.1-15.1) 11/14/22 04:11 Plt Count 145 10^3/cmm (157-399) L D 11/14/22 04:11 MPV 10.6 fL (7.4-10.4) H 11/14/22 04:11 Neut % (Auto) 55.1 % 11/14/22 04:11 Lymph % (Auto) 32.4 % 11/14/22 04:11 Bradley % (Auto) 9.2 % 11/14/22 04:11 Eos % (Auto) 2.4 % 11/14/22 04:11 Baso % (Auto) 0.9 % 11/14/22 04:11 Neut # (Auto) 2.57 10^3/uL (1.8-7.7) 11/14/22 04:11 Lymph # (Auto) 1.5 10^3/uL (0.8-4.8) 11/14/22 04:11 Bradley # (Auto) 0.4 10^3/uL (0.2-0.9) 11/14/22 04:11 Eos # (Auto) 0.1 10^3/uL (0.0-0.8) 11/14/22 04:11 Baso # (Auto) 0.0 10^3/uL (0.0-0.1) 11/14/22 04:11 Nucleated RBC % (auto) 0 % 11/14/22 04:11 Nucleated RBCs # 0.0 /100WBC 11/14/22 04:11 Sodium 144 mmol/L (136-145) 11/14/22 04:11 Potassium 3.3 mmol/L (3.5-5.1) L 11/14/22 04:11 Chloride 114 mmol/L (98-107) H 11/14/22 04:11 Carbon Dioxide 20 mmol/L (22-29) L 11/14/22 04:11 Anion Gap 13.3 (5-19) 11/14/22 04:11 BUN 16 mg/dL (8-23) 11/14/22 04:11 Creatinine 1.2 mg/dL (0.5-0.9) H 11/14/22 04:11 GFR Calculation Not Reportable 11/14/22 04:11 Glucose 93 mg/dL (65-115) 11/14/22 04:11 Calculated Osmolality 299 mOsm/kg (285-295) H 11/14/22 04:11 Calcium 8.6 mg/dL (8.5-10.5) 11/14/22 04:11 Phosphorus 3.0 mg/dL (2.5-4.5) 11/14/22 04:11 Magnesium 1.8 mg/dL (1.7-2.3) 11/14/22 04:11 Total Bilirubin 0.7 mg/dL (0.15-1.2) 11/14/22 04:11 AST 18 U/L (0-32) 11/14/22 04:11 ALT 20 U/L (0-33) 11/14/22 04:11 Alkaline Phosphatase 76 U/L (35-105) 11/14/22 04:11 Troponin T Baseline 15 ng/L (0-10) H 11/13/22 22:29 Troponin T 120 Minute 12.10 ng/L (0-10) H 11/14/22 00:27 Delta Troponin T -2.90 ABS# (0-10) L 11/14/22 00:27 Troponin T Hi Sens 6Hr 14.92 ng/L (0-10) H 11/14/22 04:11 Troponin T Hi Sens 6Hr Delta -0.08 ng/L (0-12) L 11/14/22 04:11 Total Protein 5.4 g/dL (6.6-8.7) L D 11/14/22 04:11 Albumin 3.7 g/dL (3.5-5.2) 11/14/22 04:11 Globulin 1.7 g/dL (1.3-4.6) 11/14/22 04:11 TSH 12.27 uIU/mL (0.27-4.20) H 11/13/22 19:16 Free T4 1.74 ng/dL (0.82-1.77) 11/13/22 22:29 Free T3 2.3 PG/ML (2.0-4.4) 11/13/22 22:29 Urine Color Light yellow (Yellow) 11/14/22 04:00 Urine Appearance Sl hazy (CLEAR) A 11/14/22 04:00 Urine pH 7 (5-7) 11/14/22 04:00 Ur Specific [place] 1.010 (1.005-1.030) 11/14/22 04:00 Urine Protein Neg (Negative) 11/14/22 04:00 Urine Glucose (UA) Norm (Normal) 11/14/22 04:00 Urine Ketones Negative (Negative) 11/14/22 04:00 Urine Blood Neg (Negative) 11/14/22 04:00 Urine Nitrate Negative (Negative) 11/14/22 04:00 Urine Bilirubin Neg (Negative) 11/14/22 04:00 Urine Urobilinogen Neg mg/dL (Negative) 11/14/22 04:00 Ur Leukocyte Esterase 2+ (Negative) H 11/14/22 04:00 Urine RBC None /hpf (0-2) 11/14/22 04:00 Urine WBC 5-10 /hpf (0-5) H 11/14/22 04:00 Ur Squamous Epith Cells 0-4 /hpf (0-5) H 11/14/22 04:00 Amorphous Sediment Not Reportable 11/14/22 04:00 Urine Bacteria Trace /hpf (NONE) 11/14/22 04:00 Vitals Last Vital Signs Temp 97.5 F L 11/14/22 08:00 Pulse 62 11/14/22 10:55 Resp 16 11/14/22 10:55 BP 148/86 11/14/22 10:55 Pulse Ox 96 11/14/22 10:55 O2 Del Method Room Air 11/14/22 10:55 Discharge Plan Discharge Patient Disposition: Home Condition: Stable Prescriptions: New potassium chloride [Klor-Con 10] 10 mEq tablet extended release 40 meq PO DAILY Qty: 120 3RF Rx Instructions: Take 4 day. May take 2 in am and 2 in pm or all 4 at once. Your PCP will adjust according to follow up lab furosemide [Lasix] 20 mg tablet 20 mg PO DAILY Qty: 30 0RF Continued ondansetron HCl 4 mg tablet 4 mg PO Q8H PRN (Reason: nausea and vomiting) Qty: 30 1RF Eliquis 5 mg tablet 5 mg PO BID Qty: 180 3RF amiodarone 400 mg tablet 400 mg PO DAILY Qty: 90 3RF sucralfate 1 gram tablet 1 g PO QID 90 Days Qty: 360 3RF ICaps AREDS 4,296 mcg-226 mg-90 mg capsule 1 cap PO BID pantoprazole 40 mg tablet,delayed release (DR/EC) 40 mg PO BID Qty: 180 3RF levothyroxine 25 mcg tablet See Rx Instructions .ROUTE .COMPLEX Qty: 90 3RF Dose Instruction: TAKE 1 TABLET EVERY MORNING 30 MINUTES PRIOR TO EATING WITH WATER ONLY Rx Instructions: TAKE 1 TABLET EVERY MORNING 30 MINUTES PRIOR TO EATING WITH WATER ONLY diltiazem HCl 120 mg capsule,extended release 24 hr 120 mg PO DAILY Qty: 90 1RF cyanocobalamin (vitamin B-12) [Vitamin B-12] 1,000 mcg tablet 1,000 mcg PO DAILY Qty: 30 6RF cholecalciferol (vitamin D3) 50 mcg (2,000 unit) capsule 50 mcg PO DAILY Qty: 30 6RF metoprolol tartrate 100 mg tablet See Rx Instructions .ROUTE .COMPLEX Qty: 180 2RF Dose Instruction: Take 1 tablet by mouth twice daily Rx Instructions: Take 1 tablet by mouth twice daily Discontinued potassium chloride 10 mEq capsule, extended release 10 meq PO DAILY furosemide [Lasix] 20 mg tablet 20 mg PO DIRECTED Qty: 90 3RF Rx Instructions: Take 20mg twice a day for 2 weeks, then take 20mg daily Discharge Orders: Discharge Order (Routine); Ordered 11/14/22 Ordered By: Joaquín Contreras Referrals: Dagoberto Wright MD [Primary Care Provider] - Discharge Diet: Usual diet Discharge Activity: Resume usual activity Activity Restrictions/Additional Instructions: Your lab drawn on Thursday. This test is called a BMP. Ideally you should be able to check your BMP as often as needed. It may be possible to order as such. I wrote a new prescription for Lasix because the way it is ordered in the computer says as directed in its that you take this daily. I also wrote the new prescription for potassium. Could be smaller tablets. Please take a total of 40 mEq daily, 4 pills daily. Take 2 in the morning and 2 in the afternoon if preferred. I would recommend holding off on further CAT scans for kidney mass . CT did not report any abnormality. It is likely it is a cyst. For kidney function has been slightly elevated from early to mid October. It is improving. No contrast for now. Discharge Attestations Time Spent in Discharge Care*: less than 30 min Status at Discharge: Cognitive status at discharge: cognitively intact , Behavioral status at discharge: cooperative , Quality Metrics Clinical Quality Measures [ No reported AMI, CVA or VTE this stay] Coding Level of Care Code Acute Code for Chg Fwd Diagnoses Dizziness R42 Hypokalemia E87.6 RULA (acute kidney injury) N17.9 Abdominal pain, left lower quadrant R10.32 Right renal mass N28.89 Hypothyroidism E03.9 Atrial fibrillation/flutter Pacemaker Z95.0 Atrial fibrillation I48.91
[2022-11-14 13:53] VITALS: BP 148/86; PULSE 62; RESP 16; TEMP 36.4; O2SAT 96
== END 2022-11-14 13:54 | disposition home or self-care (01) ==
LOC: ER 20:57 → MEDSURG 21:01
PROVIDERS: Emergency Medicine; Admitting Provider Family Medicine; Emergency Provider Emergency Medicine; PCP Family Medicine; Visit Provider Internal Medicine
DX: R42 Dizziness and giddiness (principal); E87.6 Hypokalemia; N17.9 Acute kidney failure, unspecified; R10.32 Left lower quadrant pain; N28.89 Other specified disorders of kidney and ureter; E03.9 Hypothyroidism, unspecified; I48.91 Unspecified atrial fibrillation; Z95.0 Presence of cardiac pacemaker; I45.10 Unspecified right bundle-branch block; Z79.01 Long term (current) use of anticoagulants; I10 Essential (primary) hypertension; G47.33 Obstructive sleep apnea (adult) (pediatric); J45.909 Unspecified asthma, uncomplicated
CPT/HCPCS: 36415; 70450; 74176; 80053; 81001; 83540; 83735; 84100; 84439; 84443; 84481; 84484; 85025; 86141; 93005; 94664; 96365; 96366; 96375; 99285; C9113; G0378; J3480; J7030

== ENCOUNTER 2022-11-17 08:50 | Outpatient (CLI) | payer MEDICARE, OTHER, SELFPAY | END 2022-11-17 08:51 | disposition home or self-care (01) | LOC: LAB 09:12 | PROVIDERS: PCP Family Medicine; Visit Provider Internal Medicine | DX: N17.9 Acute kidney failure, unspecified (principal); E87.6 Hypokalemia | CPT/HCPCS: 80048 ==

== ENCOUNTER → 2022-12-18 09:50 | Outpatient (BNVA) | payer MEDICARE, OTHER, SELFPAY | PROVIDERS: PCP Family Medicine; Visit Provider Family Medicine | DX: E87.6 Hypokalemia (principal) | CPT/HCPCS: 80048 ==

== ENCOUNTER → 2023-02-02 08:30 | Outpatient (BNVA) | payer MEDICARE, OTHER, SELFPAY | PROVIDERS: PCP Family Medicine; Visit Provider Family Medicine | DX: E87.6 Hypokalemia (principal) | CPT/HCPCS: 80048 ==

== ENCOUNTER 2023-03-16 11:42 | Outpatient (RCR) | payer MEDICARE, OTHER, SELFPAY | END 2023-03-18 23:59 | disposition home or self-care (01) | LOC: SPT 11:42 | PROVIDERS: PCP Family Medicine; Visit Provider Family Medicine | DX: R29.6 Repeated falls (principal) | CPT/HCPCS: 97110; 97161 ==

== ENCOUNTER 2023-03-19 06:00 | Outpatient (RCR) | payer MEDICARE, OTHER, SELFPAY | END 2023-04-16 23:59 | disposition home or self-care (01) | LOC: SPT 06:00 | PROVIDERS: PCP Family Medicine; Visit Provider Family Medicine | DX: R29.6 Repeated falls (principal) | CPT/HCPCS: 97110; 97530 ==

== ENCOUNTER 2023-04-17 06:00 | Outpatient (RCR) | payer MEDICARE, OTHER, SELFPAY | END 2023-05-11 23:59 | disposition home or self-care (01) | LOC: SPT 06:00 | PROVIDERS: PCP Family Medicine; Visit Provider Family Medicine | DX: R29.6 Repeated falls (principal) | CPT/HCPCS: 97110 ==

== ENCOUNTER → 2023-04-23 08:44 | Outpatient (BNVA) | payer MEDICARE, OTHER, SELFPAY | PROVIDERS: PCP Family Medicine; Visit Provider Nurse Practitioner Family | DX: Z95.0 Presence of cardiac pacemaker (principal); I10 Essential (primary) hypertension; I48.0 Paroxysmal atrial fibrillation; Z79.01 Long term (current) use of anticoagulants | CPT/HCPCS: 99214 ==

== ENCOUNTER → 2023-06-15 15:31 | Outpatient (BNVA) | payer MEDICARE, OTHER, SELFPAY | PROVIDERS: PCP Family Medicine; Visit Provider Family Medicine | DX: R10.13 Epigastric pain (principal); E03.9 Hypothyroidism, unspecified; Z51.81 Encounter for therapeutic drug level monitoring | CPT/HCPCS: 80053; 83690; 83735; 84439; 84443; 85025; 86141; 87338 ==

== ENCOUNTER → 2023-06-18 10:55 | Outpatient (BNVA) | payer MEDICARE, OTHER, SELFPAY | PROVIDERS: PCP Family Medicine; Visit Provider Family Medicine | DX: R19.7 Diarrhea, unspecified (principal); R10.13 Epigastric pain | CPT/HCPCS: 87338 ==

== ENCOUNTER 2024-03-03 12:42 | Outpatient (CLI) | payer MEDICARE, OTHER, SELFPAY ==
--- NOTE | 2024-03-03 12:44 | MM_ITS ---
WS: [id number] BILATERAL SCREENING DIGITAL TOMOSYNTHESIS MAMMOGRAM WITH CAD HISTORY: SCREEN COMPARISON: 04/15/2022, 03/11/2021. Bilateral CC and MLO views with tomosynthesis and synthetic mammography submitted. Computer aided det ection analyzed. Breast composition: There are scattered areas of fibroglandular density. No suspicious masses, microc alcifications or architectural distortion. Benign calcifications within each breast. MM/MM scr BI tomosynthesis [id number] IMPRESSION: BI-RADS: 2 - Benign. FOLLOW UP: 1 Year Follow-up
--- NOTE | 2024-03-03 12:46 | XR_ITS ---
WS: [id number] DEXA (DUAL ENERGY X-RAY ABSORPTIOMETRY) Bone mineral density was performed using a Kaminario machine. HISTORY: POSTMENOPAUSAL COMPARISON: None available. Lumbar spine BMD (L1-L4): 1.200 g/cm2 T score: 0.2 Z score: 1.8 Total hip BMD: Left: 0.782 g/cm2. T score: -1.8 Z score: -0.2 Right: 0.769 g/cm2. T score: -1.9 Z score: -0.3 10 year probability of a major osteoporotic fracture is 12.5%. XR/XR DEXA axial skeleton* [id number] IMPRESSION: OSTEOPENIA based upon the WHO classification for females.
== END 2024-03-03 12:43 | disposition home or self-care (01) ==
LOC: RAD 12:44
PROVIDERS: PCP Electrodiagnostic Medicine; Visit Provider Electrodiagnostic Medicine
DX: Z12.31 Encounter for screening mammogram for malignant neoplasm of breast (principal); Z78.0 Asymptomatic menopausal state; R92.323 Mammographic fibroglandular density, bilateral breasts; R92.1 Mammographic calcification found on diagnostic imaging of breast; M85.80 Other specified disorders of bone density and structure, unspecified site
CPT/HCPCS: 77063; 77067; 77080

== ENCOUNTER 2024-03-15 15:36 | Emergency (ER) | payer MEDICARE, OTHER, SELFPAY ==
[2024-03-15] VITALS (12 sets, daily range): BP systolic 97–129; BP diastolic 62–93; PULSE 76–137; RESP 18; TEMP 36.6; O2SAT 96–99; BMI 26.8
--- NOTE | 2024-03-15 15:37 | XRR_ITS ---
PROCEDURE INFORMATION: Exam: XR Chest Exam date and time: 03/15/2024 4:20 PM Age: 73 years old Clinical indication: Other: Weakness; Prior surgery; Surgery date: 6+ months; Surgery type: Pacer TECHNIQUE: Imaging protocol: Radiologic exam of the chest. Views: 1 view. COMPARISON: CR XR chest 1V portable [id number] 12/24/2020 7:38 PM FINDINGS: Tubes, catheters and devices: Cardiac device left anterior chest Lungs: Unremarkable. No consolidation. Pleural spaces: Elevated right hemidiaphragm No pleural effusion. No pneumothorax. Heart/Mediastinum: Unremarkable. No cardiomegaly. Bones/joints: Unremarkable. XR/XR chest 1V portable [id number] IMPRESSION: 1. No acute findings. 2. Elevated right hemidiaphragm 3. Cardiac device left anterior chest
--- NOTE | 2024-03-15 15:38 | ECG_ITS ---
[facility] Test Date: 2024-03-15 Pat Name: Ave López Department: Room: Gender: Female Home Hospice Aide: : 1950 Requested By: Gregorio Brewer Order Number: [id number] Benjie MD: Jose العلي M.D. Measurements Intervals [place] Rate: 150 P: 0 DE: 0 QRS: 3 QRSD: 79 T: -45 QT: 260 QTc: 411 Interpretive Statements ATRIAL FLUTTER WITH RAPID VENTRICULAR RESPONSE LOW QRS VOLTAGE IN PRECORDIAL LEADS [QRS DEFLECTION < 1.0 mV IN CHEST LEADS] POSSIBLE RIGHT VENTRICULAR CONDUCTION DELAY [RSR (QR) IN V1/V2] NONSPECIFIC ST & T-WAVE ABNORMALITY Compared to ECG 11/14/2022 03:15:57 Atrial-paced complex(es) or rhythm no longer present Incomplete right bundle-branch block no longer present Possible ischemia no longer present T-wave abnormality still present Electronically Signed On 03-17-2024 11:18:28 LITHOGRAPHIC PROOFER by Jose العلي M.D. [email or web address]
--- NOTE | 2024-03-15 16:09 | W.ED.NAVMDI ---
Documented by User: KAYLIE Ralph 03/17/24 13:08 HPI - Nausea/Vomiting/Diarrhea General: Chief complaint: Nausea/Vomiting/Diarrhea Stated complaint: weak, fast heart rate(doc reff) Time Seen by Provider: 03/15/24 16:01 Source: patient Mode of arrival: wheelchair Limitations: no limitations History of Present Illness: Patient is very nice 73-year-old female here with her significant other after she was seen here by Dr. Nelson. She states she went to him with concerns of nausea, vomiting, diarrhea over the past 4 days. She states that his office she was noted to be in a-fib with RVR and a low blood pressure thus sent to the emergency department for further evaluation. Patient states her documentation designer is Dr. Little in [place]. She states she is on rate controlling drugs as well as anticoagulation for her atrial fibrillation. She is not complaining of any chest pain, shortness of breath, difficulty breathing, or palpitations. She has not been running fevers. She has no complaints of abdominal pain. She states with her nausea and vomiting she has not been able to hold down her home medications. Has a pacemaker. Has had previous cardiac ablation. MD elicited complaint: nausea, vomiting, diarrhea and other (a fib with RVR) Onset (ago): day(s) Description of diarrhea: watery Associated nausea: Yes Associated abdominal pain: No Location of pain: None Severity: moderate Relieving factors: none Associated symtoms: Reports nausea; Denies change in vision, chest pain, dysuria, fatigue, headache(s), malaise, palpitations or syncope Related Data Home Medications Medication Instructions Recorded Confirmed vitamins A,C,X-zogv-fdxjog 4,296 1 cap PO BID 06/20/22 03/15/24 mcg-226 mg-90 mg capsule (ICaps AREDS) apixaban 5 mg tablet (Eliquis) 5 mg PO BID 03/15/24 03/15/24 latanoprost 0.005 % eye drops 1 drp ophthalmic (eye) DAILY 03/15/24 03/15/24 levothyroxine 75 mcg tablet 75 mcg PO DAILY 03/15/24 03/15/24 metoprolol tartrate 100 mg tablet 100 mg PO BID 03/15/24 03/15/24 verapamil 240 mg tablet,extended 240 mg PO DAILY 03/15/24 03/15/24 release Previous Rx's Medication Instructions Recorded cholecalciferol (vitamin D3) 50 50 mcg PO DAILY #30 caps 07/04/22 mcg (2,000 unit) capsule cyanocobalamin (vitamin B-12) 1,000 mcg PO DAILY #30 tabs 07/04/22 1,000 mcg tablet (Vitamin B-12) potassium chloride 10 mEq 40 meq (4 x 10 mEq) PO DAILY #120 11/14/22 tablet,extended release (Klor-Con) tabs sucralfate 1 gram tablet 1 g PO QID 90 days #360 tabs 01/01/23 pantoprazole 40 mg tablet,delayed 40 mg PO BID #180 tabs 06/04/23 release furosemide 20 mg tablet (Lasix) 20 mg PO DAILY #90 tabs 11/25/23 ondansetron HCl 4 mg tablet 4 mg PO Q8H PRN nausea and 03/15/24 vomiting #14 tabs Allergies Allergy/AdvReac Type Severity Reaction Status Date / Time Penicillins Allergy swelling Verified 03/15/24 15:54 sulfamethoxazole Allergy itch Verified 03/15/24 15:54 [From Bactrim] trimethoprim [From Bactrim] Allergy itch Verified 03/15/24 15:54 vancomycin AdvReac ADR-Vomitin Verified 03/15/24 15:54 g Review of Systems Const: Denies: fever(s), chills, body aches, fatigue or malaise Eyes: Denies: change in vision or blurry vision Card: Denies: chest pain, palpitations, irregular heart rhythm, edema, swelling of feet/ankles, lightheadedness, syncope, pre-syncope, dyspnea on exertion, orthopnea, leg pain with exertion or acrocyanosis Resp: Denies: dyspnea, productive cough or pain on inspiration GI: Reports: nausea, vomiting and diarrhea; Denies: abdominal pain : Reports: other (reports decreased urine output-thinks she may be dehydrated); Denies: flank pain, difficulty voiding, dysuria, urinary frequency, urinary urgency or urinary hesitancy Musc: Denies: neck pain, back pain, extremity pain, extremity swelling or joint pain Skin/Breast: Denies: rash Neuro: Denies: headache(s), numbness in extremities, weakness in extremities or sensory changes PFSH ED PFSH: Medical History Pacemaker Atrial fibrillation Paroxysmal atrial fibrillation with bradycardia during medical management Asthma Glaucoma Macular hole, right eye Pulmonary embolism, bilateral Hiatal hernia Right renal mass Hypothyroidism GERD (gastroesophageal reflux disease) Atrial fibrillation/flutter Recurrent chest pain Chronic hypokalemia Chest pain Atrial fibrillation with RVR Obstructive sleep apnea SVT (supraventricular tachycardia) Hypertension Surgical History History of cholecystectomy H/O wrist surgery History of permanent cardiac pacemaker placement History of abdominal surgery 27 inches of intestine removed - 1994, hiatal hernia repair/adhesion breakdown that was unsuccessful with intestinal perf - [facility] - 2015, hiatal hernia/adhesiolysis/rib removal - 04/2018 - [facility] History of eye surgery Stent placement bilateral H/O: hysterectomy With BLO H/O esophageal hernia repair Family History Other CAD (coronary artery disease) Cancer Social History Smoking and tobacco/nicotine status: never used tobacco/nicotine Alcohol intake: never Substance/Drug Use: never Physical Exam Const: COMMON NORMALS: no acute distress, average body habitus, patient oriented x3, no limitations, healthy appearing, alert and well nourished GENERAL APPEARANCE: cooperative ORIENTATION/CONSCIOUSNESS: Yes awake, Yes oriented to person, Yes oriented to place and Yes oriented to time HENMT: COMMON NORMALS: normocephalic and atraumatic HEAD & SCALP: normal to inspection, normocephalic and atraumatic Neck/C-Spine: COMMON NORMALS: full ROM, no lymphadenopathy, supple and no meningeal signs Chest: COMMONS NORMALS: normal inspection of the chest and normal palpation of entire chest wall Resp: COMMON NORMALS: normal respiratory effort and clear to auscultation bilaterally AUSCULTATION: clear to auscultation bilaterally Cardio: RATE: tachycardic RHYTHM: abnormal rhythm irregularly irregular GI: COMMON NORMALS: Normal to inspection, nondistended, normoactive bowel sounds present, Soft to palpation, non-tender, No hepatosplenomegaly present and no masses PALPATION: Yes Soft to palpation and Yes No hepatosplenomegaly present : COMMON NORMALS: Yes no CVA tenderness BLADDER/KIDNEY EXAM: Yes no CVA tenderness Back/Pelvis: COMMON NORMALS: no CVA tenderness and thoracic and lumbar spine normal to inspection Extremity: COMMON NORMALS: normal to inspection, no clubbing, cyanosis or edema, no calf tenderness and no pedal edema GENERAL: Yes normal exam except as noted Neuro: COMMON NORMALS: patient oriented x3 SENSORIUM/ORIENTATION: Yes alert, Yes oriented to person, Yes oriented to place and Yes oriented to time MENINGEAL SIGNS: Yes no meningeal signs Skin: COMMON NORMALS: no rashes or lesions noted GENERAL SKIN EXAM: no rashes or lesions noted Course ED course: Care transferred to Dr. Christian LOYOLA Vital Signs: Vital signs: Vital Signs Temperature 97.9 F 03/15/24 15:50 Pulse Rate 85 03/15/24 21:54 Respiratory Rate 18 03/15/24 21:06 Blood Pressure 129/88 03/15/24 21:54 Pulse Oximetry 98 03/15/24 21:54 Oxygen Delivery Me thod Room Air 03/15/24 21:30 MDM - Nausea/Vomiting/Diarrhea Lab Data 03/15/24 16:19 03/15/24 16:19 Radiology Impressions Chest X-Ray 03/15/24 15:37 IMPRESSION: 1. No acute findings. 2. Elevated right hemidiaphragm 3. Cardiac device left anterior chest Laboratory Results WBC 6.35 10^3/uL (3.29-11.43) 03/15/24 16:19 RBC 5.35 10^6/uL (3.85-5.65) 03/15/24 16:19 Hgb 16.20 g/dL (11.27-16.99) 03/15/24 16:19 Hct 49.0 % (36-47) H 03/15/24 16:19 MCV 91.6 fl (85-98) 03/15/24 16:19 MCH 30.3 pg (27-33) 03/15/24 16:19 MCHC 33.1 g/dL (30-55) 03/15/24 16:19 RDW 13.6 % (12.1-15.1) 03/15/24 16:19 Plt Count 222 10^3/cmm (157-399) 03/15/24 16:19 MPV 10.1 fL (7.4-10.4) 03/15/24 16:19 Neut % (Auto) 62.6 % 03/15/24 16:19 Lymph % (Auto) 24.9 % 03/15/24 16:19 [place] % (Auto) 11.5 % 03/15/24 16:19 Eos % (Auto) 0.2 % 03/15/24 16:19 Baso % (Auto) 0.5 % 03/15/24 16:19 Neut # (Auto) 3.98 10^3/uL (1.8-7.7) 03/15/24 16:19 Lymph # (Auto) 1.6 10^3/uL (0.8-4.8) 03/15/24 16:19 [place] # (Auto) 0.7 10^3/uL (0.2-0.9) 03/15/24 16:19 Eos # (Auto) 0.0 10^3/uL (0.0-0.8) 03/15/24 16:19 Baso # (Auto) 0.0 10^3/uL (0.0-0.1) 03/15/24 16:19 Nucleated RBC % (auto) 0 % 03/15/24 16:19 Nucleated RBCs # 0.0 /100WBC 03/15/24 16:19 Sodium 142 mmol/L (136-145) 03/15/24 16:19 Potassium 2.9 mmol/L (3.5-5.1) L 03/15/24 16:19 Chloride 106 mmol/L (98-107) 03/15/24 16:19 Carbon Dioxide 19 mmol/L (22-29) L 03/15/24 16:19 Anion Gap 19.9 (5-19) H 03/15/24 16:19 BUN 22 mg/dL (8-23) 03/15/24 16:19 Creatinine 1.2 mg/dL (0.5-0.9) H 03/15/24 16:19 GFR Calculation Not Reportable 03/15/24 16:19 Glucose 114 mg/dL (65-115) 03/15/24 16:19 Calculated Osmolality 298 mOsm/kg (285-295) H 03/15/24 16:19 Calcium 9.4 mg/dL (8.5-10.5) 03/15/24 16:19 Magnesium 1.9 mg/dL (1.7-2.3) 03/15/24 16:19 Total Bilirubin 0.7 mg/dL (0.15-1.2) 03/15/24 16:19 AST 19 U/L (0-32) 03/15/24 16:19 ALT 16 U/L (0-33) 03/15/24 16:19 Alkaline Phosphatase 83 U/L (35-105) 03/15/24 16:19 Troponin T Baseline 18 ng/L (0-10) H 03/15/24 16:19 Troponin T 120 Minute 16.37 ng/L (0-10) H 03/15/24 17:58 Delta Troponin T -1.63 ABS# (0-10) L 03/15/24 17:58 Total Protein 6.8 g/dL (6.6-8.7) 03/15/24 16:19 Albumin 3.9 g/dL (3.5-5.2) 03/15/24 16:19 Globulin 2.9 g/dL (1.3-4.6) 03/15/24 16:19 Lipase 70 U/L (13-60) H 03/15/24 16:19 Urine Color Yellow (Yellow) 03/15/24 19:12 Urine Appearance Clear (CLEAR) 03/15/24 19:12 Urine pH 6.5 (5-7) 03/15/24 19:12 Ur Specific [place] 1.019 (1.005-1.030) 03/15/24 19:12 Urine Protein 1+ (Negative) A 03/15/24 19:12 Urine Glucose (UA) Negative (Normal) 03/15/24 19:12 Urine Ketones Trace (Negative) 03/15/24 19:12 Urine Blood Negative (Negative) 03/15/24 19:12 Urine Nitrate Negative (Negative) 03/15/24 19:12 Urine Bilirubin Negative (Negative) 03/15/24 19:12 Urine Urobilinogen 1.0 mg/dL (Negative) 03/15/24 19:12 Ur Leukocyte Esterase Negative (Negative) 03/15/24 19:12 Urine RBC 3-5 /hpf (0-2) 03/15/24 19:12 Urine WBC 0-5 /hpf (0-5) 03/15/24 19:12 Ur Squamous Epith Cells 0-5 /hpf (0-5) 03/15/24 19:12 Amorphous Sediment Not Reportable 03/15/24 19:12 Urine Bacteria None seen /hpf (NONE) 03/15/24 19:12 Hyaline Casts 10.32 /lpf 03/15/24 19:12 Discharge Plan Discharge Patient Disposition: Home Clinical Impression: Atrial fibrillation with rapid ventricular response Nausea & vomiting Qualifiers: Vomiting type: unspecified Qualified Code(s): R11.2 - Nausea with vomiting, unspecified Condition: Stable Prescriptions: New ondansetron HCl 4 mg tablet 4 mg PO Q8H PRN (Reason: nausea and vomiting) Qty: 14 0RF No Action ICaps AREDS 4,296 mcg-226 mg-90 mg capsule 1 cap PO BID sucralfate 1 gram tablet 1 g PO QID 90 Days Qty: 360 6RF cyanocobalamin (vitamin B-12) [Vitamin B-12] 1,000 mcg tablet 1,000 mcg PO DAILY Qty: 30 6RF cholecalciferol (vitamin D3) 50 mcg (2,000 unit) capsule 50 mcg PO DAILY Qty: 30 6RF pantoprazole 40 mg tablet,delayed release (DR/EC) 40 mg PO BID Qty: 180 3RF Lasix 20 mg tablet 20 mg PO DAILY Qty: 90 3RF potassium chloride [Klor-Con 10] 10 mEq tablet extended release 40 meq PO DAILY Qty: 120 3RF Rx Instructions: Take 4 day. May take 2 in am and 2 in pm or all 4 at once. Your PCP will adjust according to follow up lab latanoprost 0.005 % drops 1 drp ophthalmic (eye) DAILY Rx Instructions: place 1 drop into affected eye(s) once daily levothyroxine 75 mcg Tablet 75 mcg PO DAILY metoprolol tartrate 100 mg tablet 100 mg PO BID Rx Instructions: Take 1 tablet by mouth twice daily Eliquis 5 mg tablet 5 mg PO BID Rx Instructions: TAKE 1 TABLET BY MOUTH TWICE DAILY verapamil 240 mg tablet extended release 240 mg PO DAILY Discharge Orders: Discharge ED (Routine); Ordered 03/15/24 Ordered By: Bob Gonzales Referrals: Chino Nelson DO [Primary Care Provider] - 1 week Patient Instructions: Atrial Fibrillation, Acute Nausea and Vomiting (ED) Activity Restrictions/Additional Instructions: Your heart rate was found to be in A-fib with RVR or rapid heart rate. You were given several doses of oral and IV Cardizem and Zofran for your nausea. You have been sent home with prescriptions for Zofran for nausea. Please take this so that we can take your medicine as directed and this should keep you out of a fast heart rate. Please follow-up with your physician within the next 7 days for further evaluation treatment. If your heart rate begins to race again please feel free to return to the ER. Coding Level of Care Code ED Str[employer] And Binder Controller for Chg Fwd Documented by User: Bob Gonzales DO 03/16/24 01:39 HPI - Nausea/Vomiting/Diarrhea General: Chief complaint: Nausea/Vomiting/Diarrhea Stated complaint: weak, fast heart rate(doc reff) Time Seen by Provider: 03/15/24 16:01 Related Data Home Medications Medication Instructions Recorded Confirmed vitamins A,C,H-tqjm-utyoze 4,296 1 cap PO BID 06/20/22 03/15/24 mcg-226 mg-90 mg capsule (ICaps AREDS) apixaban 5 mg tablet (Eliquis) 5 mg PO BID 03/15/24 03/15/24 latanoprost 0.005 % eye drops 1 drp ophthalmic (eye) DAILY 03/15/24 03/15/24 levothyroxine 75 mcg tablet 75 mcg PO DAILY 03/15/24 03/15/24 metoprolol tartrate 100 mg tablet 100 mg PO BID 03/15/24 03/15/24 verapamil 240 mg tablet,extended 240 mg PO DAILY 03/15/24 03/15/24 release Previous Rx's Medication Instructions Recorded cholecalciferol (vitamin D3) 50 50 mcg PO DAILY #30 caps 07/04/22 mcg (2,000 unit) capsule cyanocobalamin (vitamin B-12) 1,000 mcg PO DAILY #30 tabs 07/04/22 1,000 mcg tablet (Vitamin B-12) potassium chloride 10 mEq 40 meq (4 x 10 mEq) PO DAILY #120 11/14/22 tablet,extended release (Klor-Con) tabs sucralfate 1 gram tablet 1 g PO QID 90 days #360 tabs 01/01/23 pantoprazole 40 mg tablet,delayed 40 mg PO BID #180 tabs 06/04/23 release furosemide 20 mg tablet (Lasix) 20 mg PO DAILY #90 tabs 11/25/23 ondansetron HCl 4 mg tablet 4 mg PO Q8H PRN nausea and 03/15/24 vomiting #14 tabs Allergies Allergy/AdvReac Type Severity Reaction Status Date / Time Penicillins Allergy swelling Verified 03/15/24 15:54 sulfamethoxazole Allergy itch Verified 03/15/24 15:54 [From Bactrim] trimethoprim [From Bactrim] Allergy itch Verified 03/15/24 15:54 vancomycin AdvReac ADR-Vomitin Verified 03/15/24 15:54 g PFSH ED PFSH: Medical History Pacemaker Atrial fibrillation Paroxysmal atrial fibrillation with bradycardia during medical management Asthma Glaucoma Macular hole, right eye Pulmonary embolism, bilateral Hiatal hernia Right renal mass Hypothyroidism GERD (gastroesophageal reflux disease) Atrial fibrillation/flutter Recurrent chest pain Chronic hypokalemia Chest pain Atrial fibrillation with RVR Obstructive sleep apnea SVT (supraventricular tachycardia) Hypertension Surgical History History of cholecystectomy H/O wrist surgery History of permanent cardiac pacemaker placement History of abdominal surgery 27 inches of intestine removed - 1994, hiatal hernia repair/adhesion breakdown that was unsuccessful with intestinal perf - [facility]urgius - 2015, hiatal hernia/adhesiolysis/rib removal - 04/2018 - [facility] History of eye surgery Stent placement bilateral H/O: hysterectomy With BLO H/O esophageal hernia repair Family History Other CAD (coronary artery disease) Cancer Social History Smoking and tobacco/nicotine status: never used tobacco/nicotine Alcohol intake: never Substance/Drug Use: never Course Vital Signs: Vital signs: Vital Signs Temperature 97.9 F 03/15/24 15:50 Pulse Rate 85 03/15/24 21:54 Respiratory Rate 18 03/15/24 21:06 Blood Pressure 129/88 03/15/24 21:54 Pulse Oximetry 98 03/15/24 21:54 Oxygen Delivery Me thod Room Air 03/15/24 21:30 MDM - Nausea/Vomiting/Diarrhea Medical Decision Making Patient care transitioned over myself at shift change, patient was given total of 2 doses of IV Cardizem as well as 2 doses of oral Cardizem for her heart rate consistently stayed in the 70s and 80s. Patient wanted to go home. Patient be discharged home. Patient was instructed to continue her normal Cardizem and she will be given Zofran to take as needed for nausea and vomiting. Patient states she has not taken her medicine consistently for the last or 4 days and therefore that is why her heart rate is out of control. Medical Records I reviewed the patient's medical records. Lab Data I reviewed the patient's lab results. 03/15/24 16:19 03/15/24 16:19 Radiology Impressions Chest X-Ray 03/15/24 15:37 IMPRESSION: 1. No acute findings. 2. Elevated right hemidiaphragm 3. Cardiac device left anterior chest Laboratory Results WBC 6.35 10^3/uL (3.29-11.43) 03/15/24 16:19 RBC 5.35 10^6/uL (3.85-5.65) 03/15/24 16:19 Hgb 16.20 g/dL (11.27-16.99) 03/15/24 16:19 Hct 49.0 % (36-47) H 03/15/24 16:19 MCV 91.6 fl (85-98) 03/15/24 16:19 MCH 30.3 pg (27-33) 03/15/24 16:19 MCHC 33.1 g/dL (30-55) 03/15/24 16:19 RDW 13.6 % (12.1-15.1) 03/15/24 16:19 Plt Count 222 10^3/cmm (157-399) 03/15/24 16:19 MPV 10.1 fL (7.4-10.4) 03/15/24 16:19 Neut % (Auto) 62.6 % 03/15/24 16:19 Lymph % (Auto) 24.9 % 03/15/24 16:19 [place] % (Auto) 11.5 % 03/15/24 16:19 Eos % (Auto) 0.2 % 03/15/24 16:19 Baso % (Auto) 0.5 % 03/15/24 16:19 Neut # (Auto) 3.98 10^3/uL (1.8-7.7) 03/15/24 16:19 Lymph # (Auto) 1.6 10^3/uL (0.8-4.8) 03/15/24 16:19 [place] # (Auto) 0.7 10^3/uL (0.2-0.9) 03/15/24 16:19 Eos # (Auto) 0.0 10^3/uL (0.0-0.8) 03/15/24 16:19 Baso # (Auto) 0.0 10^3/uL (0.0-0.1) 03/15/24 16:19 Nucleated RBC % (auto) 0 % 03/15/24 16:19 Nucleated RBCs # 0.0 /100WBC 03/15/24 16:19 Sodium 142 mmol/L (136-145) 03/15/24 16:19 Potassium 2.9 mmol/L (3.5-5.1) L 03/15/24 16:19 Chloride 106 mmol/L (98-107) 03/15/24 16:19 Carbon Dioxide 19 mmol/L (22-29) L 03/15/24 16:19 Anion Gap 19.9 (5-19) H 03/15/24 16:19 BUN 22 mg/dL (8-23) 03/15/24 16:19 Creatinine 1.2 mg/dL (0.5-0.9) H 03/15/24 16:19 GFR Calculation Not Reportable 03/15/24 16:19 Glucose 114 mg/dL (65-115) 03/15/24 16:19 Calculated Osmolality 298 mOsm/kg (285-295) H 03/15/24 16:19 Calcium 9.4 mg/dL (8.5-10.5) 03/15/24 16:19 Magnesium 1.9 mg/dL (1.7-2.3) 03/15/24 16:19 Total Bilirubin 0.7 mg/dL (0.15-1.2) 03/15/24 16:19 AST 19 U/L (0-32) 03/15/24 16:19 ALT 16 U/L (0-33) 03/15/24 16:19 Alkaline Phosphatase 83 U/L (35-105) 03/15/24 16:19 Troponin T Baseline 18 ng/L (0-10) H 03/15/24 16:19 Troponin T 120 Minute 16.37 ng/L (0-10) H 03/15/24 17:58 Delta Troponin T -1.63 ABS# (0-10) L 03/15/24 17:58 Total Protein 6.8 g/dL (6.6-8.7) 03/15/24 16:19 Albumin 3.9 g/dL (3.5-5.2) 03/15/24 16:19 Globulin 2.9 g/dL (1.3-4.6) 03/15/24 16:19 Lipase 70 U/L (13-60) H 03/15/24 16:19 Urine Color Yellow (Yellow) 03/15/24 19:12 Urine Appearance Clear (CLEAR) 03/15/24 19:12 Urine pH 6.5 (5-7) 03/15/24 19:12 Ur Specific [place] 1.019 (1.005-1.030) 03/15/24 19:12 Urine Protein 1+ (Negative) A 03/15/24 19:12 Urine Glucose (UA) Negative (Normal) 03/15/24 19:12 Urine Ketones Trace (Negative) 03/15/24 19:12 Urine Blood Negative (Negative) 03/15/24 19:12 Urine Nitrate Negative (Negative) 03/15/24 19:12 Urine Bilirubin Negative (Negative) 03/15/24 19:12 Urine Urobilinogen 1.0 mg/dL (Negative) 03/15/24 19:12 Ur Leukocyte Esterase Negative (Negative) 03/15/24 19:12 Urine RBC 3-5 /hpf (0-2) 03/15/24 19:12 Urine WBC 0-5 /hpf (0-5) 03/15/24 19:12 Ur Squamous Epith Cells 0-5 /hpf (0-5) 03/15/24 19:12 Amorphous Sediment Not Reportable 03/15/24 19:12 Urine Bacteria None seen /hpf (NONE) 03/15/24 19:12 Hyaline Casts 10.32 /lpf 03/15/24 19:12 All radiology interpretation(s) finalized by discharge Discharge Plan Discharge Patient Disposition: Home Clinical Impression: Atrial fibrillation with rapid ventricular response Nausea & vomiting Qualifiers: Vomiting type: unspecified Qualified Code(s): R11.2 - Nausea with vomiting, unspecified Condition: Stable Prescriptions: New ondansetron HCl 4 mg tablet 4 mg PO Q8H PRN (Reason: nausea and vomiting) Qty: 14 0RF No Action ICaps AREDS 4,296 mcg-226 mg-90 mg capsule 1 cap PO BID sucralfate 1 gram tablet 1 g PO QID 90 Days Qty: 360 6RF cyanocobalamin (vitamin B-12) [Vitamin B-12] 1,000 mcg tablet 1,000 mcg PO DAILY Qty: 30 6RF cholecalciferol (vitamin D3) 50 mcg (2,000 unit) capsule 50 mcg PO DAILY Qty: 30 6RF pantoprazole 40 mg tablet,delayed release (DR/EC) 40 mg PO BID Qty: 180 3RF Lasix 20 mg tablet 20 mg PO DAILY Qty: 90 3RF potassium chloride [Klor-Con 10] 10 mEq tablet extended release 40 meq PO DAILY Qty: 120 3RF Rx Instructions: Take 4 day. May take 2 in am and 2 in pm or all 4 at once. Your PCP will adjust according to follow up lab latanoprost 0.005 % drops 1 drp ophthalmic (eye) DAILY Rx Instructions: place 1 drop into affected eye(s) once daily levothyroxine 75 mcg Tablet 75 mcg PO DAILY metoprolol tartrate 100 mg tablet 100 mg PO BID Rx Instructions: Take 1 tablet by mouth twice daily Eliquis 5 mg tablet 5 mg PO BID Rx Instructions: TAKE 1 TABLET BY MOUTH TWICE DAILY verapamil 240 mg tablet extended release 240 mg PO DAILY Discharge Orders: Discharge ED (Routine); Ordered 03/15/24 Ordered By: Bob Gonzales Referrals: Chino Nelson DO [Primary Care Provider] - 1 week Patient Instructions: Atrial Fibrillation, Acute Nausea and Vomiting (ED) Activity Restrictions/Additional Instructions: Your heart rate was found to be in A-fib with RVR or rapid heart rate. You were given several doses of oral and IV Cardizem and Zofran for your nausea. You have been sent home with prescriptions for Zofran for nausea. Please take this so that we can take your medicine as directed and this should keep you out of a fast heart rate. Please follow-up with your physician within the next 7 days for further evaluation treatment. If your heart rate begins to race again please feel free to return to the ER. Coding Level of Care Code ED [employer] B[employer] Controller for Tino Hernández
[2024-03-15] MEDS: sodium chloride 0.9% 1,000 ML 999 ML IV (16:27)
[2024-03-15] MEDS: dilTIAZem 5 mg/mL SDV 5 mL 10 MG IVP ×2 (16:37→21:06)
[2024-03-15 16:45] LABS: Basophils % 0.5 %; Eosinophils % 0.2 %; Lymphocytes # 1.6 10^3/uL (0.8-4.8); Lymphocytes % 24.9 %; Mean Corpuscular HGB Conc 33.1 g/dL (30-55); Mean Corpuscular Hemoglobin 30.3 pg (27-33); Mean Corpuscular Volume 91.6 fl (85-98); Mean Platelet Volume 10.1 fL (7.4-10.4); Monocytes # 0.7 10^3/uL (0.2-0.9); Monocytes % 11.5 %; Neutrophils # 3.98 10^3/uL (1.8-7.7); Neutrophils % 62.6 %; Nucleated Red Blood Cells % 0 %; Platelet Count 222 10^3/cmm (157-399); Red Blood Count 5.35 10^6/uL (3.85-5.65); Red Cell Distribution Width 13.6 % (12.1-15.1); White Blood Count 6.35 10^3/uL (3.29-11.43)
[2024-03-15 17:15] LABS: Troponin(5th) Baseline 18 ng/L (0-10)
[2024-03-15 17:19] LABS: Alanine Aminotransferase 16 U/L (0-33); Albumin Level 3.9 g/dL (3.5-5.2); Alkaline Phosphatase 83 U/L (35-105); Anion Gap 19.9 (5-19); Aspartate Amino Transferase 19 U/L (0-32); Blood Urea Nitrogen 22 mg/dL (8-23); Calcium 9.4 mg/dL (8.5-10.5); Carbon Dioxide 19 mmol/L (22-29); Chloride 106 mmol/L (98-107); Globulin 2.9 g/dL (1.3-4.6); Glucose 114 mg/dL (65-115); Lipase 70 U/L (13-60); Osmolality Calculated 298 mOsm/kg (285-295); Sodium 142 mmol/L (136-145); Total Bilirubin 0.7 mg/dL (0.15-1.2); Total Protein 6.8 g/dL (6.6-8.7)
[2024-03-15 17:21] LABS: Potassium 2.9 mmol/L (3.5-5.1)
[2024-03-15] MEDS: potassium chloride ER 20 mEq Tablet 40 MEQ PO (17:53)
--- NOTE | 2024-03-15 17:53 | ECG_ITS ---
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 Measurements Intervals [place] Rate: 108 P: 0 SD: 0 QRS: -14 QRSD: 90 T: 262 QT: 321 QTc: 432 Interpretive Statements ATRIAL FLUTTER WITH RAPID VENTRICULAR RESPONSE LOW QRS VOLTAGE IN PRECORDIAL LEADS [QRS DEFLECTION < 1.0 mV IN CHEST LEADS] POSSIBLE RIGHT VENTRICULAR CONDUCTION DELAY [RSR (QR) IN V1/V2] ST DEVIATION AND MODERATE T-WAVE ABNORMALITY, CONSIDER INFERIOR ISCHEMIA [-0.1+ mV T-WAVE IN II/aVF] Compared to ECG 03/15/2024 15:57:36 Possible ischemia now present T-wave abnormality still present Electronically Signed On 03-19-2024 13:45:32 [employer] SAL[employer]NAGER by Jose العلي M.D. [email or web address]
[2024-03-15 18:19] LABS: Magnesium 1.9 mg/dL (1.7-2.3)
[2024-03-15 18:36] LABS: Troponin 5 2HR 16.37 ng/L (0-10)
[2024-03-15 18:39] LABS: Troponin 5 2HR Delta -1.63 ABS# (0-10)
[2024-03-15] MEDS: dilTIAZem 30 mg Tablet PO ×2 (19:03→21:06)
[2024-03-15 19:44] LABS: Bilirubin Urine Negative (Negative); Blood Urine Negative (Negative); Glucose Urine UA Negative (Normal); Ketones Urine Trace (Negative); Leukocyte Esterase Urine Negative (Negative); Nitrate Urine Negative (Negative); Protein Urine 1+ (Negative); Specific Gravity, Urine 1.019 (1.005-1.030); Urine Appearance Clear (CLEAR); Urine Color Yellow (Yellow); pH Urine 6.5 (5-7)
[2024-03-15 19:50] LABS: Add Urine Microscopic? YES; Bacteria Urine None Seen /hpf; Hyaline Casts Urine 10.32 /lpf; Squamous Epithelial Cell Urine 0-5 /hpf (0-5); WBC Urine 0-5 /hpf (0-5)
[2024-03-15 20:17] LABS: UA Slide Review UA Slide Review Perf
--- NOTE | 2024-03-15 21:26 | PC.NURSE ---
pt ambulated to the bathroom at this time
== END 2024-03-15 21:55 | disposition home or self-care (01) ==
PROVIDERS: Emergency Medicine; Physician Assistant; Emergency Provider Emergency Medicine; PCP Electrodiagnostic Medicine
DX: I48.20 Chronic atrial fibrillation, unspecified (principal); R11.2 Nausea with vomiting, unspecified; Z79.01 Long term (current) use of anticoagulants; I10 Essential (primary) hypertension; Z95.0 Presence of cardiac pacemaker
CPT/HCPCS: 71045; 80053; 81001; 83690; 83735; 84484; 85025; 93005; 96361; 96374; 96376; 99285; J3490; J7030

== ENCOUNTER 2024-07-29 09:47 | Outpatient (CLI) | payer MEDICARE, OTHER, SELFPAY ==
--- NOTE | 2024-07-29 09:59 | XR_ITS ---
WS: [id number] Chest 2 views, 07/29/2024 Clinical Data: HIATAL HERNIA Comparison: Two-view chest, 07/14/2024 Findings: No nodules, masses or effusions are seen. There is a patchy opacity at the left cardiophrenic angle which probably represents atelectasis, minimal effusion and scarring. There is right pleural reaction at the cardiophrenic angle. There are sutures in the retrocardiac region. The patient has a history of a gastric pull-through and distal esophageal resection. There are probable tablets in the stomach. There are left upper quadrant sutures. The heart is normal. The pulmonary vascularity is not increased. No pneumothorax is seen. The aortic arch shows mild tortuosity. There is a 2-lead pacemaker unchanged in position. The posterior right sixth rib is absent. There is a dextroscoliosis of the lower thoracic and lumbar spine. There is a calcification to the right of the L3 vertebra which is indeterminate but unchanged. XR/XR chest 2V* [id number] Impression: 1. No change in patchy opacity at left cardiophrenic angle which is probably re sult of the patient's surgery. 2. Right cardiophrenic angle scarring unchanged. 3. Atherosclerosis and cardiac pacemaker.
== END 2024-07-29 09:48 | disposition home or self-care (01) ==
LOC: RAD 09:50
PROVIDERS: PCP Electrodiagnostic Medicine; Visit Provider Nurse Practitioner
DX: K44.9 Diaphragmatic hernia without obstruction or gangrene (principal); M41.35 Thoracogenic scoliosis, thoracolumbar region; Z95.0 Presence of cardiac pacemaker
CPT/HCPCS: 71046

== ENCOUNTER → 2024-09-05 14:41 | Outpatient (BNVA) | payer MEDICARE, OTHER, SELFPAY | PROVIDERS: PCP Electrodiagnostic Medicine; Visit Provider Internal Medicine | DX: I48.91 Unspecified atrial fibrillation (principal); I48.92 Unspecified atrial flutter; I10 Essential (primary) hypertension; Z95.0 Presence of cardiac pacemaker; I49.5 Sick sinus syndrome; I48.0 Paroxysmal atrial fibrillation | CPT/HCPCS: 36415; 80048; 83880; 99214 ==

== ENCOUNTER 2024-09-28 08:56 | Outpatient (CLI) | payer MEDICARE, OTHER, SELFPAY ==
[2024-09-28 10:41] LABS: Anion Gap 12.9 (5-19); Blood Urea Nitrogen 15 mg/dL (8-23); Calcium 9.3 mg/dL (8.5-10.5); Carbon Dioxide 27 mmol/L (22-29); Chloride 106 mmol/L (98-107); Glucose 102 mg/dL (65-115); NT Pro B Type Natriuretic Pept 1139 pg/mL (0-125); Osmolality Calculated 295 mOsm/kg (285-295); Potassium 3.9 mmol/L (3.5-5.1); Sodium 142 mmol/L (136-145)
== END 2024-09-28 08:57 | disposition home or self-care (01) ==
PROVIDERS: PCP Electrodiagnostic Medicine; Visit Provider Internal Medicine
DX: I10 Essential (primary) hypertension (principal)
CPT/HCPCS: 36415; 80048; 83880

== ENCOUNTER 2024-10-03 06:54 | Outpatient (CLI) | payer MEDICARE, OTHER, SELFPAY ==
--- NOTE | 2024-10-03 07:00 | USCV_ITS ---
Ave López Age: 74 Gender: F : 1950 Exam Date: 10/03/2024 07:09 Ordering Phys: Jose العلي M.D ([email or web address]) Technologist: Exam Location: [facility] [place] Indication: cp afib BP: 122 / 89 HR: 60 Rhythm: Sinus Technical Quality: Adequate MEASUREMENTS (Male / Female) Normal Values 2D ECHO LV Diastolic Diameter PLAX 4.1 cm 4.2 - 5.9 / 3.9 - 5.3 cm IVS Diastolic Thickness 0.9 cm 0.6 - 1.0 / 0.6 - 0.9 cm IVS Systolic Thickness 1.6 cm LVPW Diastolic Thickness 1.0 cm 0.6 - 1.0 / 0.6 - 0.9 cm LVPW Systolic Thickness 1.0 cm LVOT Diameter 2.0 cm LV Ejection Fraction 2D Teich 66.7 % LV Ejection Fraction MOD 4C 54.8 % LV Ejection Fraction MOD 2C 64.2 % LV Ejection Fraction 2C AL 65.6 % LA Diameter 3.7 cm RA Systolic Volume 4C AL 32.5 ml RA Systolic Volume 4C MOD 32.7 ml LA Sys Volume AL 125.2 cm cubed LA Sys Volume Index AL 76.8 cm cubed/m squared Aorta at Sinotubular Diameter 2.4 cm M-MODE LA Ao Ratio MM 1.2 AV Cusp Separation MM 1.8 cm DOPPLER AV Peak Velocity 156.0 cm/s LVOT Peak Velocity 66.0 cm/s AV Area Cont Eq vti 1.7 cm squared AV Area Cont Eq pk 1.4 cm squared MV Peak Velocity 126.0 cm/s MV Area PHT 4.3 cm squared Mitral E to A Ratio 0.8 TV Peak Velocity 292.5 cm/s TR Peak Velocity 316.0 cm/s TR Peak Gradient 39.9 mmHg TV Peak E Velocity 115.0 cm/s PV Peak Velocity 101.3 cm/s FINDINGS Left Ventricle Normal left ventricular size, systolic function and wall thickness, with no regional wall motion abnormalities. Left ventricular ejection fraction is estimated at 60 %. Grade II/IV diastolic dysfunction, moderately elevated filling pressures. Right Ventricle The right ventricle is normal in size and function. Right Atrium The right atrium is normal in size. Left Atrium Moderately increased left atrial size. Mitral Valve Thickened mitral valve. No mitral valve stenosis. Moderate mitral valve regurgitation. Aortic Valve Moderate aortic valve calcification. No aortic valve stenosis. Mild aortic valve regurgitation. Tricuspid Valve Structurally normal tricuspid valve without significant stenosis or regurgitation. Pulmonary artery systolic pressure is normal. Pulmonic Valve Structurally normal pulmonic valve without significant stenosis. There is no pulmonic regurgitation. Pericardium Normal pericardium without effusion. Aorta Normal ascending aorta dimension. IVC The inferior vena cava appears normal. CONCLUSIONS Normal left ventricular size, systolic function and wall thickness, with no regional wall motion abnormalities. Left ventricular ejection fraction is estimated at 60 %. Grade II/IV diastolic dysfunction, moderately elevated filling pressures. Moderately increased left atrial size. Thickened mitral valve. No mitral valModerate aortic valve calcification. No aortic valve stenosis. Mild aortic valve regurgitation. ve stenosis. Moderate mitral valve regurgitation. There is no pericardial effusion. Right atrial pressure is around 5 mm of mercury. Dawood Finley MD (Electronically Signed) Final Date: 11 October 2024 10:50 S
== END 2024-10-03 06:55 | disposition home or self-care (01) ==
LOC: RAD 06:55
PROVIDERS: PCP Electrodiagnostic Medicine; Visit Provider Internal Medicine
DX: R07.9 Chest pain, unspecified (principal); R06.02 Shortness of breath; I08.0 Rheumatic disorders of both mitral and aortic valves; I70.0 Atherosclerosis of aorta
CPT/HCPCS: 93306

== ENCOUNTER 2024-11-14 07:57 | Outpatient (CLI) | payer MEDICARE, OTHER, SELFPAY ==
[2024-11-14 09:20] LABS: Anion Gap 15.3 (5-19); Blood Urea Nitrogen 16 mg/dL (8-23); Calcium 9.4 mg/dL (8.5-10.5); Carbon Dioxide 25 mmol/L (22-29); Chloride 109 mmol/L (98-107); Glucose 91 mg/dL (65-115); NT Pro B Type Natriuretic Pept 1113 pg/mL (0-125); Osmolality Calculated 303 mOsm/kg (285-295); Potassium 3.3 mmol/L (3.5-5.1); Sodium 146 mmol/L (136-145)
== END 2024-11-14 07:58 | disposition home or self-care (01) ==
PROVIDERS: PCP Electrodiagnostic Medicine; Visit Provider Internal Medicine
DX: I48.0 Paroxysmal atrial fibrillation (principal); I49.5 Sick sinus syndrome; R07.89 Other chest pain
CPT/HCPCS: 36415; 80048; 83880

== ENCOUNTER → 2024-12-21 09:46 | Outpatient (BNVA) | payer MEDICARE, OTHER, SELFPAY | PROVIDERS: PCP Electrodiagnostic Medicine; Visit Provider Internal Medicine Cardiovascular Disease | DX: Z45.018 Encounter for adjustment and management of other part of cardiac pacemaker (principal) | CPT/HCPCS: 93296 ==

== ENCOUNTER → 2025-01-03 13:15 | Outpatient (BNVA) | payer MEDICARE, OTHER, SELFPAY | PROVIDERS: PCP Electrodiagnostic Medicine; Visit Provider Nurse Practitioner Family | DX: I48.91 Unspecified atrial fibrillation (principal); Z95.0 Presence of cardiac pacemaker; E03.9 Hypothyroidism, unspecified; K31.84 Gastroparesis; I34.0 Nonrheumatic mitral (valve) insufficiency; R60.9 Edema, unspecified; Z79.01 Long term (current) use of anticoagulants | CPT/HCPCS: 99213 ==